=== PATIENT | female | born 1945 | race Caucasian/White ===

== ENCOUNTER 2018-06-10 11:52 | Inpatient (IN) ==
[2018-06-10 12:43] LABS: Basophils % 0.2 %; Eosinophils % 0.1 %; Hematocrit 41.3 % (35.3-44.9); Hemoglobin 14.7 g/dL (11.5-15.4); Immature Granulocytes % 0.9 % (0-4); Lymphocytes % 5.5 %; Mean Corpuscular HGB Conc 35.6 g/dL (31.6-35.5); Mean Corpuscular Volume 92.8 fL (83.0-100.0); Mean Platelet Volume 10.3 fL (9.4-12.4); Monocytes # 0.8 K/mcL (0.0-1.3); Monocytes % 4.5 %; Neutrophils # 16.2 K/mcL (1.6-8.9); Platelet Count 174 K/mcL (140-400); Red Blood Count 4.45 M/mcL (3.82-4.97); Red Cell Distribution Width 12.5 % (11.5-14.5); Segmented Neutrophils % 88.8 %
[2018-06-10 12:57] LABS: BUN/Creatinine Ratio 26 (6-26); Blood Urea Nitrogen 29 mg/dL (8-23); Calcium 8.8 mg/dL (8.6-10.3); Carbon Dioxide 27 mEq/L (23-29); Chloride 89 mEq/L (98-107); Glucose 142 mg/dL (70-105); Osmolality,Calculated 272 (280-300); Potassium 3.8 mEq/L (3.5-5.1); Sodium 127 mEq/L (136-145); Troponin I < 0.03 ng/mL (< 0.04); eGFR For Non-African Americans 48 (> 60)
[2018-06-10 13:34] LABS: Albumin 3.8 g/dL (3.5-5.7); Albumin/Globulin Ratio 1.2 (1.1-2.2); Bilirubin,Indirect 1.9 mg/dL (0.0-1.2); Bilirubin,Total 2.9 mg/dL (0.3-1.0); Globulin 3.3 g/dL (2.4-3.5); Magnesium 1.4 mg/dL (1.6-2.6); Total Protein 7.1 g/dL (6.4-8.9)
[2018-06-10] MEDS ORDERED: Isovue-370 500 ML INFUS..BTL IV ONE (13:56)
[2018-06-10] MEDS ORDERED: Piperacillin/Tazobactam 3.375 GM in 0.9 % Sodium Chloride Mini Bag 100 ML IVPB ONE (13:58)
[2018-06-10] MEDS ORDERED: Ondansetron 4 MG/2 ML VIAL IVP ONE (13:59)
[2018-06-10] MEDS ORDERED: *HR* FentaNYL (PF) 100 MCG/2 ML VIAL IVP ONE (13:59)
--- NOTE | 2018-06-10 16:55 | Emergency Department Note ---
Disposition Clinical Impression: Leukocytosis Cellulitis Qualifiers: Site of cellulitis: buttock Qualified Code(s): L03.317 - Cellulitis of buttock Disposition: Admitted As Inpatient Condition: Good Referrals: Shravan Hartmann MD [Primary Care Provider] - Forms: ED Satisfaction Letter General Adult HPI - General Chief complaint: ED Shortness of Breath/Dyspnea Stated complaint: HERSON, abscess Time Seen by Provider: 06/10/18 12:28 Source: patient Mode of arrival: ambulatory Limitations: no limitations Nursing Notes Reviewed: Yes Vital Signs Reviewed: Yes - History of Present Illness HPI Narrative: Previously diet controlled diabetes and CHF presenting today for concern for infection infection started on Sunday and was progressively worse to Sunday when it spontaneously started to drain. expresses much fluid as possible out. The patient had increased erythema going from approximately 3 x 5 cm to approximately 10 cm x 7 cm. Patient told by PCP to come to the emergency department for evaluation with her associated symptoms of fevers chills and generalized on feeling well. Patient will undergo further evaluation with lab work as well as CT to delineate the depth of involvement of infection as well as possible abscess. Pain Scale: 7 - Related Data Allergies Allergy/AdvReac Type Severity Reaction Status Date / Time iodine Allergy Unknown unknown Uncoded 08/07/15 05:00 Review of Systems: CONSTITUTIONAL: Fevers chills weakness and fatigue HEENT: Eyes: No visual changes. Ears, Nose, Throat: No hearing loss, difficulty talking or unable to swallow. SKIN: Erythema to the right gluteus CARDIOVASCULAR: No chest pain, chest pressure or chest discomfort. No palpitat ions or edema. RESPIRATORY: Shortness of breath that started earlier in the day otherwise nonspecific without cough or sputum production. GASTROINTESTINAL: Nausea and decreased appetite. GENITOURINARY: No burning on urination or hematuria. NEUROLOGICAL: No headache, dizziness, syncope, paralysis, ataxia, numbness or tingling in the extremities. No change in bowel or bladder control. MUSCULOSKELETAL: Patient with pain to the gluteal region. Physical Exam General: mild distress secondary to discomfort. Head: Normocephalic Atraumatic Eyes: PERRL, EOMI ENT: Airway patent, no stridor Neck: supple, no meningismus Chest: Lungs clear to auscultation bilateral Cardiac: Regular rhythm Abdomen: soft, nontender, nondistended; no guarding, rebound, or tenderness to percussion Musculoskeletal: Calves symmetric, nontender Skin: 10 x7 cm erythema to the pressure dependent gluteus with extenstion toward the rectum without being able to determine rectal involvement. Induration without fluctuation appreciated. Neuro: Alert and Oriented to person, place, and time; No focal deficit Course - Reevaluation(s) Reevaluation #1: Patient refusing pain medication. Imaging and blood work are pending. We have ordered Vanc and Zosyn for broad-spectrum antibiotic coverage. Patient with heart rate in the high 80s and low 90s. History of significant CHF per patient. Patient will receive 125 of fluids with hard blood pressure continued to be monitored. Patient will need admission for cellulitis given the extent as well as her diabetes. Discussed with radiology her iodine allergy which is too a horse cleaning solution as well as an episode of itching she had after eating oysters. Patient safe for IV contrast. Ultrasound gallbladder have been ordered for elevated bilirubin however after further history from patient she has had her gallbladder removed in the past. Gallbladder ultrasound has been canceled. - Consultations Consultation #1: Radiology called to discuss the case. Patient with draining abscess. No specific fluid gas seen within the area possibly consistent with correlation to abscess drainage site versus necrotizing cellulitis. Recommends surgical consult. Consultation #2: Discussed with surgery. Recommends admission to the hospital for IV antibiotics. They will consult. They were at bedside in the emergency department. Consultation #3: Discussed with hospitalist. Patient accepted for admission. Vital Signs Temperature 97.9 F 06/10/18 12:00 Pulse Rate 104 06/10/18 12:00 Respiratory Rate 22 06/10/18 12:00 Blood Pressure 137/82 06/10/18 12:00 O2 Sat by Pulse Oximetry 94 06/10/18 12:00 Temperature 97.9 F 06/10/18 12:00 Pulse Rate 104 06/10/18 12:00 Respiratory Rate 22 06/10/18 12:00 Blood Pressure 137/82 06/10/18 12:00 O2 Sat by Pulse Oximetry 94 06/10/18 12:00 Oxygen Delivery Oxygen Delivery Room Air Medical Decision Making - Lab Data Result diagrams: 06/10/18 12:24 06/10/18 12:24 Lab Results 06/10/18 06/10/18 06/10/18 Range/Units 12:24 12:24 12:24 WBC 18.3 H (4.3-11.1) K/mcL RBC 4.45 (3.82-4.97) M/mcL Hgb 14.7 (11.5-15.4) g/dL Hct 41.3 (35.3-44.9) % MCV 92.8 (83.0-100.0) fL MCH 33.0 (28.0-33.3) pg MCHC 35.6 H (31.6-35.5) g/dL RDW 12.5 (11.5-14.5) % Plt Count 174 (140-400) K/mcL MPV 10.3 (9.4-12.4) fL Immature Gran % 0.9 (0-4) % Seg Neutrophils % 88.8 % Lymphocytes % 5.5 % Monocytes % 4.5 % Eosinophils % 0.1 % Basophils % 0.2 % Neutrophils # 16.2 H (1.6-8.9) K/mcL Lymphocytes # 1.0 (0.6-4.6) K/mcL Monocytes # 0.8 (0.0-1.3) K/mcL Eosinophils # 0.0 (0.0-0.6) K/mcL Basophils # 0.0 (0.0-0.2) K/mcL Sodium 127 L (136-145) mEq/L Potassium 3.8 (3.5-5.1) mEq/L Chloride 89 L (98-107) mEq/L Carbon Dioxide 27 (23-29) mEq/L BUN 29 H (8-23) mg/dL Creatinine 1.10 (0.60-1.20) mg/dL Est GFR ( Amer) 59 L (> 60) Est GFR (Non-Af Amer) 48 L (> 60) BUN/Creatinine Ratio 26 (6-26) Glucose 142 H (70-105) mg/dL Calculated Osmolality 272 L (280-300) Lactic Acid 1.5 (0.5-2.2) mmol/L Calcium 8.8 (8.6-10.3) mg/dL Magnesium (1.6-2.6) mg/dL Total Bilirubin (0.3-1.0) mg/dL Direct Bilirubin (0.0-0.2) mg/dL Indirect Bilirubin (0.0-1.2) mg/dL AST (13-39) Units/L ALT (7-52) Units/L Alkaline Phosphatase (34-104) Units/L Troponin I < 0.03 (< 0.04) ng/mL B-Natriuretic Peptide (Less than 100) pg/mL Serum Total Protein (6.4-8.9) g/dL Albumin (3.5-5.7) g/dL Globulin (2.4-3.5) g/dL Albumin/Globulin Ratio (1.1-2.2) 06/10/18 06/10/18 Range/Units 12:24 12:52 WBC (4.3-11.1) K/mcL RBC (3.82-4.97) M/mcL Hgb (11.5-15.4) g/dL Hct (35.3-44.9) % MCV (83.0-100.0) fL MCH (28.0-33.3) pg MCHC (31.6-35.5) g/dL RDW (11.5-14.5) % Plt Count (140-400) K/mcL MPV (9.4-12.4) fL Immature Gran % (0-4) % Seg Neutrophils % % Lymphocytes % % Monocytes % % Eosinophils % % Basophils % % Neutrophils # (1.6-8.9) K/mcL Lymphocytes # (0.6-4.6) K/mcL Monocytes # (0.0-1.3) K/mcL Eosinophils # (0.0-0.6) K/mcL Basophils # (0.0-0.2) K/mcL Sodium (136-145) mEq/L Potassium (3.5-5.1) mEq/L Chloride (98-107) mEq/L Carbon Dioxide (23-29) mEq/L BUN (8-23) mg/dL Creatinine (0.60-1.20) mg/dL Est GFR ( Amer) (> 60) Est GFR (Non-Af Amer) (> 60) BUN/Creatinine Ratio (6-26) Glucose (70-105) mg/dL Calculated Osmolality (280-300) Lactic Acid (0.5-2.2) mmol/L Calcium (8.6-10.3) mg/dL Magnesium 1.4 L (1.6-2.6) mg/dL Total Bilirubin 2.9 H (0.3-1.0) mg/dL Direct Bilirubin 1.0 H (0.0-0.2) mg/dL Indirect Bilirubin 1.9 H (0.0-1.2) mg/dL AST 29 (13-39) Units/L ALT 27 (7-52) Units/L Alkaline Phosphatase 85 (34-104) Units/L Troponin I (< 0.04) ng/mL B-Natriuretic Peptide 325 H (Less than 100) pg/mL Serum Total Protein 7.1 (6.4-8.9) g/dL Albumin 3.8 (3.5-5.7) g/dL Globulin 3.3 (2.4-3.5) g/dL Albumin/Globulin Ratio 1.2 (1.1-2.2)
[2018-06-10] MEDS: 0.9 % Sodium Chloride 1,000 ML IVC SCH ×2 (17:01→22:00)
[2018-06-10] MEDS ORDERED: Lidocaine -MPF 2% 5 ML VIAL INFILT ONE (17:12)
--- NOTE | 2018-06-10 17:19 | Internal Med History&Physical ---
Date of Encounter: 06/10/18 Time of Encounter: 17:16 Internal Medicine - H&P: HPI Chief complaint: gluteal infection Admitted From: Home Plans for Post Hospital Care: Home History of present illness: Ms. Carpenter is a 73 year old female with history of Fib on Xarelto ( not compliant), HFpEF and morbid obesity presented to the ED with complaint of right gluteal pain. as per patietn her pain started about 3 days ago and is located in the right gluteal region and is non-radiating, sharp in nature aggravated by movement. she has a sensation of laying on a lump. she told her about what she felt and he attempted to drain the swelling and reports that he was able to aspirate about 1 ml of brownish fluid. her symptoms did not improve and she developed chills and felt warm over the weekend so they decided to come to the Ed for further evaluation. she reports that she has not taken any of her medications for the past 3 days as she did not feel "good". I discussed with her the risks associated with not abraham complaint with her OAC and she understands. she has difficulty with ambulating secondary to her weight. she denies chest pain but does report dyspnea at rest. She denies fever, chills, palpitations, shortness of breath, nausea, vomiting, diarrhea, leg swelling, calf tenderness, heat or cold intolerance, LOC, syncope, headache, vision changes, loss of function in her extremities, PND or orthopnea. In ED, patient was afebrile with labs of WBC 18.3, Hgb 14.7, INR 1.6, Na 127, lactic acid 1.5. CT abdomen pelvis showed subcutaneous soft tissue stranding and gas along right aspect of gluteal cleft, worrisome for necrotizing cellulitis. Surgery saw patient at bedside and did a bedside I&D and as the patient that this overall to will need to be held tonight for further debridements in the OR in the a.m. Internal Medicine - H&P: Meds Atorvastatin Calcium [Lipitor] 20 mg PO QPM 06/10/18 [History] Furosemide [Lasix] 20 mg PO Q48H 06/10/18 [History] Lisinopril [Zestril] 40 mg PO DAILY 06/10/18 [History] Metoprolol Succinate [Toprol Xl] 50 mg PO DAILY 06/10/18 [History] Multivit-Min/FA/Lycopen/Lutein [A Thru Z Select Multivit Tab] 1 tab PO DAILY 06/10/18 [History] Rivaroxaban [Xarelto] 20 mg PO DAILY 06/10/18 [History] Ubidecarenone [Co Q-10] 100 mg PO DAILY 06/10/18 [History] hydroCHLOROthiazide [Hydrochlorothiazide] 25 mg PO DAILY 06/10/18 [History] Allergy/AdvReac Type Severity Reaction Status Date / Time iodine Allergy Unknown unknown Uncoded 08/07/15 05:00 All Systems PM: A 10-system review of systems was performed and is negative for pertinent findings except as documented above in the HPI. - Constitutional Vitals: Temp Pulse Resp BP Pulse Ox 97.9 F 104 22 137/82 94 06/10/18 12:00 06/10/18 12:00 06/10/18 12:00 06/10/18 12:00 06/10/18 12:00 Exam: General: Patient is alert, oriented, no acute distress, morbidly obese Head: atraumatic, normocephalic, Eye: normal appearance, PERRL, no scleral icterus, no conjunctival injection ENT: mucous membranes moist, normal external ear exam Neck: normal inspection, trachea midline, full ROM, no carotid bruits Chest: normal inspection, symmetric chest rise Respiratory: tachypnic distant breathsounds secondary to body habitus, Bilateral breath sounds are clear without wheezing, crackles, or rhonchi. Cardiovascular: distent heart sounds secondary to body habitus, irregularly irregular s1 and s2 No clicks, rubs, gallops, or murmors. Abdomen: Bowel sounds present normoactive x-4 quadrants. Abdomen is soft, nond istended. no Epigastric tenderness. No guarding or rebound. No organomegaly noted, obese musculoskeletal: Spontaneously moving all extremities. no edema, no calf tenderness Skin: warm, dry, intact. indurated abscess on pressure region of right gluteal fold with surrounding erythema Neuro: Alert and oriented x4. Sensation light touch intact. Cranial nerves 2- 12 is intact. no focal deficit Psych: Patient's affect is normal Internal Med - H&P Results - Labs CBC & Chem 7: 06/10/18 12:24 06/10/18 12:24 Labs: Short CBC 06/10/18 Range/Units 12:24 WBC 18.3 H (4.3-11.1) K/mcL Hgb 14.7 (11.5-15.4) g/dL Hct 41.3 (35.3-44.9) % Plt Count 174 (140-400) K/mcL Neutrophils # 16.2 H (1.6-8.9) K/mcL BMP 06/10/18 12:24 Sodium 127 L Potassium 3.8 Chloride 89 L Carbon Dioxide 27 BUN 29 H Creatinine 1.10 Glucose 142 H Calcium 8.8 Cardiac Enzymes 06/10/18 Range/Units 12:24 Troponin I < 0.03 (< 0.04) ng/mL Liver Function 06/10/18 Range/Units 12:52 Total Bilirubin 2.9 H (0.3-1.0) mg/dL Direct Bilirubin 1.0 H (0.0-0.2) mg/dL AST 29 (13-39) Units/L ALT 27 (7-52) Units/L Alkaline Phosphatase 85 (34-104) Units/L Albumin 3.8 (3.5-5.7) g/dL - EKG Data -: EKG Interpreted by Myself (admission Ekg pending ) - Impressions ITS Impressions Chest X-Ray 06/10/18 12:01 IMPRESSION: No acute process. D/ / Bernardino Cohen MD / Bernardino Cohen MD Interpreting Provider: Bernardino Cohen MD Abdomen/Pelvis CT 06/10/18 13:56 IMPRESSION: Subcutaneous soft tissue stranding and gas along the right aspect of the gluteal cleft. Findings may be iatrogenic if patient has had recent incision and drainage; otherwise, findings are worrisome for necrotizing cellulitis. No drainable focal abscess. Mildly nodular hepatic contour, which appears new since 04/01/2014. Correlate with clinical evidence of cirrhosis. D/ / 06/10/2018 16:48:49 Valente Acevedo MD / [facility] Interpreting Provider: Valente Acevedo MD - Assessment and plan (1) Cellulitis Current Visit: Yes Status: Acute Assessment and plan: CT abdomen and pelvis worrisome for necrotizing cellulitis Surgery was consulted in the emergency department- Dr. Reed performed bedside I&D will most likely need to have debridement in the OR Was started on vancomycin and Zosyn in the emergency department we will continue and add clindamycin IV fluids watch for overload ESR, CRP, CPK Lactic acid within normal limit ID consult in AM High risk for surgery ( has not taken her medications for days, is SOB at rest has severe pulm HTN ) Admission EKG stat CT A/p IMPRESSION: Subcutaneous soft tissue stranding and gas along the right aspect of the gluteal cleft. Findings may be iatrogenic if patient has had recent incision and drainage; otherwise, findings are worrisome for necrotizing cellulitis. No drainable focal abscess. Mildly nodular hepatic contour, which appears new since 04/01/2014. Correlate with clinical evidence of cirrhosis. Qualifiers: Site of cellulitis: buttock Qualified Code(s): L03.317 - Cellulitis of buttock (2) Sepsis Current Visit: Yes Status: Acute Assessment and plan: secondary gluteal cellulitis WBC count: 18.3 / HR 104 BCx in process Surgery on board Qualifiers: Sepsis type: sepsis due to unspecified organism Qualified Code(s): A41.9 - Sepsis, unspecified organism (3) Moderate to severe pulmonary hypertension Current Visit: Yes Status: Acute Assessment and plan: see on TTE in 2014 Moderate-severe pulmonary hypertension. Estimated RVSP is 55 mmHg. DUO nebs Q4H is not compliant to xarelto is at high risk for DVT and PE secondary to morbid obesity and poor ambulation also most likely has GABRIEL - never had sleep study as OP Echocardiogram in AM continue Oxygen via NC keep sats >92% Bipap at nights currently on heparin drip as her chads vasc is 6 (4) Chronic a-fib Current Visit: Yes Status: Acute Assessment and plan: continue metoprolol Xarelto on hold for surgery in AM Chads vasc of 6 - will start her on heparin Drip. (5) (HFpEF) heart failure with preserved ejection fraction Current Visit: Yes Status: Acute Assessment and plan: will continue home medications if not CI BIPAP at nights keep saturations above 92% Echocardiogram TTE in 03/2015 LVEF 65-70%. Normal left ventricular structure and function. Indeterminate diastolic function. Normal right ventricular structure and function. Moderate posterior mitral annular calcification. Posterior leaflet with reduced mobility. No mitral stenosis. Trace mitral regurgitation. Mild tricuspid regurgitation. Moderate-severe pulmonary hypertension. Estimated RVSP is 55 mmHg (6) Morbid obesity Current Visit: Yes Status: Acute Assessment and plan: BMI 42.4 Nutrition (7) Hypomagnesemia Current Visit: Yes Status: Acute Assessment and plan: magnesium 1.4 replaced follow in AM (8) Hyponatremia Current Visit: Yes Status: Acute Assessment and plan: most likely secondary to poor oral intake continue IVF - watch for overload (9) DVT prophylaxis Current Visit: Yes Status: Acute Assessment and plan: heparin Drip Xarelto on hold - Time Spent With Patient Total time spent is greater than 50% in coordination of care (as documented) at patient's floor/unit and/or counseling patient:
[2018-06-10] MEDS ORDERED: traMADol 50 MG TABLET PO PRN (17:31)
[2018-06-10] MEDS ORDERED: Naloxone 0.4 MG/ML INJ IVP PRN (17:31)
[2018-06-10] MEDS ORDERED: MORPHINE SUL Oral CONC 10 MG/0.5 ML ORAL.SYG SL PRN (17:46)
[2018-06-10 17:53] LABS: INR 1.6; Prothrombin Time 17.9 Seconds (9.4-12.1)
--- NOTE | 2018-06-10 18:04 | General Surgery Procedure Note ---
Date of procedure: 06/10/18 Pre-op diagnosis: Right buttock abscess Procedure: Incision and drainage of right buttock abscess Findings: After properly identifying the patient patient was presented in the supine position and the right buttock was prepped and draped in normal sterile fashion particularly near the crease. 1% lidocaine with epinephrine was used to infiltrate the epidermal and dermal layer along the most medial aspect of the buttock crease. There was an area of what appeared to be ecchymosis 19-gauge needle was used to identify the area with the most amount of "air" and some tinnitus tissue. This did correspond to the area with mild ecchymosis (approximately several millimeters in diameter) and an 11 blade scalpel was used to make a vertical incision for length of approximately 3 cm. Dissection with a hemostat was carried down to the subcutaneous tissue and there was a 1 cm area of necrotic tissue superficially up to the skin. This necrotic tissue did not appear to extend deep within the subcutaneous tissue. Packing was initially placed to maintain hemostasis of revisualization again demonstrated necrotic tissue which appeared to be more superficial in nature. The wound was packed with quarter percent gauze with iodophor and covered with 4 x 4 gauze. The wound will be followed closely by our staff over the next 24 period. Agree with current IV fluids and IV antibiotics. Patient will be made nothing by mouth after midnight in case wound exploration in the operating room staff necessary. Anesthesia: JULIO C Surgeon: Zack Reed Estimated blood loss (cc): 11 Pathology: other (Cultures of the wound) Condition: stable Disposition: floor
--- NOTE | 2018-06-10 18:17 | General Surgery Consult Note ---
<Erick Haro S - Last Filed: 06/10/18 18:20> Date of Encounter: 06/10/18 Time of Encounter: 05:45 Assessment and Plan (1) Abscess of right buttock Current Visit: Yes Status: Acute CT (06/10) concerning for necrotizing cellulitis WBC elevated at 18.3 Dr. Reed performed incision and drainage in ED today, found necrotic tissue Will make patient NPO at midnight in case the need for exploratory surgery in next 24-48 hours Patient on clindamycin, zosyn, and vancomycin Percocet for moderate pain and SL morphine for severe pain Zofran for nausea Protonix for GI prophylaxis IVF 125 ml/hr Ordered aerobic and anaerobic wound cultures History of Present Illness History of present illness: 73 year old female with PMHx of HTN, CHF, afib on xarelto, DM presents to [facility] from her doctor's office with complaints of right gluteal pain/swelling. Surgery consulted for concern of necrotizing cellulitis. In ED, patient was afebrile with labs of WBC 18.3, Hgb 14.7, INR 1.6, Na 127, lactic acid 1.5. CT abdomen pelvis showed subcutaneous soft tissue stranding and gas along right aspect of gluteal cleft, worrisome for necrotizing cellulitis. Patient seen and examined this afternoon. She states her pain started on Sunday and feels like she's sitting on a lump. It is worse with movement and does not radiate anywhere. Her attempted to drain the area and was able to express approximately 1 ml of yellow/brown material. She admits to subjective fevers and chills during this time. She admits to numbness/tingling in lower extremities, but states that is chronic from her diabetes. Patient admits to some nausea and decreased appetite, but she denies vomiting. She denies CP, SOB, abdominal pain, pain with defecation/urination, changes in bowel/bladder habits. She has not taken her xarelto in 4-5 days because she has been too nauseated to tolerate it. Patient's surgical history includes chest abscess drained "many years ago," right inguinal hernia repair, weight loss stomach s tapling, and cholecystectomy. Patient denies history of smoking, alcohol, and drug use. Medications and Allergies Atorvastatin Calcium [Lipitor] 20 mg PO QPM 06/10/18 [History] Furosemide [Lasix] 20 mg PO Q48H 06/10/18 [History] Lisinopril [Zestril] 40 mg PO DAILY 06/10/18 [History] Metoprolol Succinate [Toprol Xl] 50 mg PO DAILY 06/10/18 [History] Multivit-Min/FA/Lycopen/Lutein [A Thru Z Select Multivit Tab] 1 tab PO DAILY 06/10/18 [History] Rivaroxaban [Xarelto] 20 mg PO DAILY 06/10/18 [History] Ubidecarenone [Co Q-10] 100 mg PO DAILY 06/10/18 [History] hydroCHLOROthiazide [Hydrochlorothiazide] 25 mg PO DAILY 06/10/18 [History] Allergy/AdvReac Type Severity Reaction Status Date / Time iodine Allergy Unknown unknown Uncoded 08/07/15 05:00 Review of Systems All systems PM: The remainder of the systems were reviewed and are negative General Surgery Exam Initial Vital Signs Temp Pulse Resp BP Pulse Ox 97.9 F 104 22 137/82 94 06/10/18 12:00 06/10/18 12:00 06/10/18 12:00 06/10/18 12:00 06/10/18 12:00 - General physical appearance well developed, no distress - Respiratory normal expansion, normal respiratory effort - Cardiovascular Cardiovascular exam: Present: tachycardia, irregular rhythm - Abdomen Abdomen general surgery: Present: bowel sounds present, soft, non tender - Rectum Rectum: Present: other (indurated abscess on pressure region of right gluteal fold with surrounding erythema) - Integumentary Integumentary general surgery: Present: warm and dry - Psychiatric Psychiatric general surgery: Present: A&Ox3, appropriate Exam Initial Vital Signs Temp Pulse Resp BP Pulse Ox 97.9 F 104 22 137/82 94 06/10/18 12:00 06/10/18 12:00 06/10/18 12:00 06/10/18 12:00 06/10/18 12:00 Results - Labs 06/10/18 12:24 06/10/18 12:24 Abnormal lab results WBC 18.3 K/mcL (4.3-11.1) H 06/10/18 12:24 MCHC 35.6 g/dL (31.6-35.5) H 06/10/18 12:24 Neutrophils # 16.2 K/mcL (1.6-8.9) H 06/10/18 12:24 ESR 41 mm/hr (0-15) H 06/10/18 12:24 PT 17.9 Seconds (9.4-12.1) H 06/10/18 12:24 Sodium 127 mEq/L (136-145) L 06/10/18 12:24 Chloride 89 mEq/L (98-107) L 06/10/18 12:24 BUN 29 mg/dL (8-23) H 06/10/18 12:24 Est GFR ( Amer) 59 (> 60) L 06/10/18 12:24 Est GFR (Non-Af Amer) 48 (> 60) L 06/10/18 12:24 Glucose 142 mg/dL (70-105) H 06/10/18 12:24 Calculated Osmolality 272 (280-300) L 06/10/18 12:24 Magnesium 1.4 mg/dL (1.6-2.6) L 06/10/18 12:52 Total Bilirubin 2.9 mg/dL (0.3-1.0) H 06/10/18 12:52 Direct Bilirubin 1.0 mg/dL (0.0-0.2) H 06/10/18 12:52 Indirect Bilirubin 1.9 mg/dL (0.0-1.2) H 06/10/18 12:52 C-Reactive Protein 153 mg/L (Less than 10) H 06/10/18 12:52 B-Natriuretic Peptide 325 pg/mL (Less than 100) H 06/10/18 12:24 Diabetes panel 06/10/18 06/10/18 Range/Units 12:24 12:52 Sodium 127 L (136-145) mEq/L Potassium 3.8 (3.5-5.1) mEq/L Chloride 89 L (98-107) mEq/L Carbon Dioxide 27 (23-29) mEq/L BUN 29 H (8-23) mg/dL Creatinine 1.10 (0.60-1.20) mg/dL Glucose 142 H (70-105) mg/dL Calcium 8.8 (8.6-10.3) mg/dL AST 29 (13-39) Units/L ALT 27 (7-52) Units/L Alkaline Phosphatase 85 (34-104) Units/L Albumin 3.8 (3.5-5.7) g/dL Calcium panel 06/10/18 06/10/18 Range/Units 12:24 12:52 Calcium 8.8 (8.6-10.3) mg/dL Albumin 3.8 (3.5-5.7) g/dL Pituitary panel 06/10/18 Range/Units 12:24 Sodium 127 L (136-145) mEq/L Potassium 3.8 (3.5-5.1) mEq/L Chloride 89 L (98-107) mEq/L Carbon Dioxide 27 (23-29) mEq/L BUN 29 H (8-23) mg/dL Creatinine 1.10 (0.60-1.20) mg/dL Glucose 142 H (70-105) mg/dL Calcium 8.8 (8.6-10.3) mg/dL Adrenal panel 06/10/18 06/10/18 Range/Units 12:24 12:52 Sodium 127 L (136-145) mEq/L Potassium 3.8 (3.5-5.1) mEq/L Chloride 89 L (98-107) mEq/L Carbon Dioxide 27 (23-29) mEq/L BUN 29 H (8-23) mg/dL Creatinine 1.10 (0.60-1.20) mg/dL Glucose 142 H (70-105) mg/dL Calcium 8.8 (8.6-10.3) mg/dL Total Bilirubin 2.9 H (0.3-1.0) mg/dL AST 29 (13-39) Units/L ALT 27 (7-52) Units/L Alkaline Phosphatase 85 (34-104) Units/L Albumin 3.8 (3.5-5.7) g/dL All other labs normal. Consult Discharge Plan - Plan Referrals: Shravan Hartmann MD [Primary Care Provider] - <Zack Reed - Last Filed: 06/11/18 14:22> Date of Encounter: 06/10/18 Review of Systems All systems PM: The remainder of the systems were reviewed and are negative General Surgery Exam Initial Vital Signs Temp Pulse Resp BP Pulse Ox 97.9 F 104 22 137/82 94 06/10/18 12:00 06/10/18 12:00 06/10/18 12:00 06/10/18 12:00 06/10/18 12:00 Exam Initial Vital Signs Temp Pulse Resp BP Pulse Ox 97.9 F 104 22 137/82 94 06/10/18 12:00 06/10/18 12:00 06/10/18 12:00 06/10/18 12:00 06/10/18 12:00 Results - Labs 06/11/18 08:55 06/11/18 04:31 Abnormal lab results WBC 20.6 K/mcL (4.3-11.1) H 06/11/18 08:55 RBC 3.47 M/mcL (3.82-4.97) L 06/11/18 08:55 Hgb 11.4 g/dL (11.5-15.4) L D 06/11/18 08:55 Hct 32.8 % (35.3-44.9) L 06/11/18 08:55 Neutrophils # 17.8 K/mcL (1.6-8.9) H 06/11/18 08:55 Monocytes # 1.4 K/mcL (0.0-1.3) H 06/11/18 08:55 ESR 41 mm/hr (0-15) H 06/10/18 12:24 PT 20.9 Seconds (9.4-12.1) H 06/11/18 04:31 Heparin Anti-Xa, Unfract 0.74 IU/mL (0.30-0.70) H 06/11/18 04:31 Sodium 128 mEq/L (136-145) L 06/11/18 04:31 Potassium 3.4 mEq/L (3.5-5.1) L 06/11/18 04:31 Chloride 95 mEq/L (98-107) L 06/11/18 04:31 Carbon Dioxide 20 mEq/L (23-29) L 06/11/18 04:31 Glucose 151 mg/dL (70-105) H 06/11/18 04:31 POC Glucose 123 mg/dL (70-99) H 06/11/18 12:48 Calculated Osmolality 273 (280-300) L 06/11/18 04:31 Calcium 7.7 mg/dL (8.6-10.3) L 06/11/18 04:31 Magnesium 1.4 mg/dL (1.6-2.6) L 06/10/18 12:52 Total Bilirubin 1.9 mg/dL (0.3-1.0) H 06/11/18 04:31 Direct Bilirubin 1.0 mg/dL (0.0-0.2) H 06/10/18 12:52 Indirect Bilirubin 1.9 mg/dL (0.0-1.2) H 06/10/18 12:52 C-Reactive Protein 153 mg/L (Less than 10) H 06/10/18 12:52 B-Natriuretic Peptide 325 pg/mL (Less than 100) H 06/10/18 12:24 Serum Total Protein 5.8 g/dL (6.4-8.9) L 06/11/18 04:31 Albumin 3.0 g/dL (3.5-5.7) L 06/11/18 04:31 Diabetes panel 06/10/18 06/11/18 Range/Units 12:52 04:31 Sodium 128 L (136-145) mEq/L Potassium 3.4 L (3.5-5.1) mEq/L Chloride 95 L (98-107) mEq/L Carbon Dioxide 20 L (23-29) mEq/L BUN 23 (8-23) mg/dL Creatinine 0.89 (0.60-1.20) mg/dL Glucose 151 H (70-105) mg/dL Calcium 7.7 L (8.6-10.3) mg/dL AST 29 26 (13-39) Units/L ALT 27 24 (7-52) Units/L Alkaline Phosphatase 85 74 (34-104) Units/L Albumin 3.8 3.0 L (3.5-5.7) g/dL Calcium panel 06/10/18 06/11/18 Range/Units 12:52 04:31 Calcium 7.7 L (8.6-10.3) mg/dL Albumin 3.8 3.0 L (3.5-5.7) g/dL Pituitary panel 06/11/18 Range/Units 04:31 Sodium 128 L (136-145) mEq/L Potassium 3.4 L (3.5-5.1) mEq/L Chloride 95 L (98-107) mEq/L Carbon Dioxide 20 L (23-29) mEq/L BUN 23 (8-23) mg/dL Creatinine 0.89 (0.60-1.20) mg/dL Glucose 151 H (70-105) mg/dL Calcium 7.7 L (8.6-10.3) mg/dL Adrenal panel 06/10/18 06/11/18 Range/Units 12:52 04:31 Sodium 128 L (136-145) mEq/L Potassium 3.4 L (3.5-5.1) mEq/L Chloride 95 L (98-107) mEq/L Carbon Dioxide 20 L (23-29) mEq/L BUN 23 (8-23) mg/dL Creatinine 0.89 (0.60-1.20) mg/dL Glucose 151 H (70-105) mg/dL Calcium 7.7 L (8.6-10.3) mg/dL Total Bilirubin 2.9 H 1.9 H (0.3-1.0) mg/dL AST 29 26 (13-39) Units/L ALT 27 24 (7-52) Units/L Alkaline Phosphatase 85 74 (34-104) Units/L Albumin 3.8 3.0 L (3.5-5.7) g/dL All other labs normal. - Attending Attestation I examined this patient and my medical decision-making was reviewed with the Resident Physician. I agree with the documented findings, disposition and treatment plan as described except to the extent set forth below. I reviewed the assessment and evaluation with the resident and agree with the above plan. Patient has had pain in the buttock area started several days ago. The pain persisted she started to have swelling with some drainage over the weekend. The attempted to perform drainage by applying pressure yesterday with minimal drainage. The patient does admit to having foul-smelling drainage several days prior. She does feel like she has chills and because of her worsening symptoms she presented to the emergency room. Evaluation there is significant erythema along the medial aspect of the right buttocks with an area of possible bruise with likely drainage was noted. Elevated white count. I noted the CT scan results which shows air in the soft tissues which is concerning for abscess with possible necrotic fasciitis. To evaluate this better we will perform a bedside incision and drainage/debridement procedures. In the emergency room so we can better assess the level of the degree of drainage and or appearance of the subcutaneous tissue. Agree with IV antibiotic and IV fluid therapy. Will follow closely with you.
[2018-06-10] MEDS ORDERED: *HR* Heparin 5,000 UNIT/ML VIAL IVP ONE (19:18)
[2018-06-10] MEDS ORDERED: *HR* Heparin 5,000 UNIT/ML VIAL IVP PRN ×2 (19:18)
[2018-06-10] MEDS ORDERED: Heparin 25,000 UNIT/500 ML D5W 25,000 UNIT/500 ML BAG IVC SCH (19:30)
[2018-06-10] MEDS ORDERED: Dextrose Gel 15 GM/37.5 ML TUBE PO PRN ×2 (19:43)
[2018-06-10] MEDS ORDERED: D5% in Water 1,000 ML IVC PRN (19:43)
[2018-06-10] MEDS ORDERED: *HR* Dextrose 50 % in Water (Syg) 50 ML SYRINGE IVP PRN (19:43)
[2018-06-10] MEDS ORDERED: Furosemide 20 MG TABLET PO SCH (19:45)
[2018-06-10] MEDS: Ipratropium/Albuterol Neb 3 ML IH SCH ×2 (20:45→23:38)
[2018-06-10 21:30] LABS: Hematocrit 37.5 % (35.3-44.9); Hemoglobin 13.2 g/dL (11.5-15.4); Mean Corpuscular HGB Conc 35.2 g/dL (31.6-35.5); Mean Corpuscular Hemoglobin 32.6 pg (28.0-33.3); Mean Corpuscular Volume 92.6 fL (83.0-100.0); Mean Platelet Volume 10.3 fL (9.4-12.4); Platelet Count 157 K/mcL (140-400); Red Blood Count 4.05 M/mcL (3.82-4.97); Red Cell Distribution Width 12.5 % (11.5-14.5)
[2018-06-10 21:39] LABS: INR 1.7; Prothrombin Time 19.3 Seconds (9.4-12.1)
[2018-06-10] MEDS: Pantoprazole 40 MG VIAL IVP SCH (22:00)
[2018-06-10] MEDS: Clindamycin 900 MG/50 ML 900 MG/50 ML IV.SOLN IVPB SCH (23:09)
[2018-06-10] MEDS: Piperacillin/Tazobactam 3.375 GM in 0.9 % Sodium Chloride Mini Bag 100 ML IVPB SCH (23:46)
[2018-06-11] MEDS ORDERED: *HR* Heparin 5,000 UNIT/ML VIAL SQ SCH
[2018-06-11] MEDS: Insulin LISPRO 300 UNITS/3 ML VIAL SQ SCH ×4 (01:10→16:55)
[2018-06-11] MEDS: *HR* OxyCODONE/APAP 5/325 TABLET PO PRN ×2 (03:45→16:54)
[2018-06-11] MEDS: Ondansetron 4 MG/2 ML VIAL IVP PRN ×3 (03:45→19:16)
[2018-06-11] MEDS: Ipratropium/Albuterol Neb 3 ML IH SCH ×4 (03:52→15:27)
[2018-06-11 04:43] LABS: Basophils # 0.1 K/mcL (0.0-0.2); Basophils % 0.2 %; Hematocrit 37.1 % (35.3-44.9); Immature Granulocytes % 1.1 % (0-4); Lymphocytes # 1.9 K/mcL (0.6-4.6); Lymphocytes % 8.3 %; Mean Corpuscular Hemoglobin 32.7 pg (28.0-33.3); Mean Corpuscular Volume 93.2 fL (83.0-100.0); Mean Platelet Volume 10.2 fL (9.4-12.4); Monocytes # 1.3 K/mcL (0.0-1.3); Monocytes % 5.7 %; Neutrophils # 19.8 K/mcL (1.6-8.9); Platelet Count 179 K/mcL (140-400); Red Blood Count 3.98 M/mcL (3.82-4.97); Red Cell Distribution Width 12.6 % (11.5-14.5); Segmented Neutrophils % 84.7 %
[2018-06-11 04:53] LABS: Heparin anti-factor XA UFH 0.74 IU/mL (0.30-0.70)
[2018-06-11 05:00] LABS: Alanine Aminotransferase 24 Units/L (7-52); Albumin/Globulin Ratio 1.1 (1.1-2.2); Alkaline Phosphatase 74 Units/L (34-104); Aspartate Amino Transferase 26 Units/L (13-39); BUN/Creatinine Ratio 26 (6-26); Bilirubin,Total 1.9 mg/dL (0.3-1.0); Blood Urea Nitrogen 23 mg/dL (8-23); Calcium 7.7 mg/dL (8.6-10.3); Carbon Dioxide 20 mEq/L (23-29); Chloride 95 mEq/L (98-107); Globulin 2.8 g/dL (2.4-3.5); Glucose 151 mg/dL (70-105); Osmolality,Calculated 273 (280-300); Potassium 3.4 mEq/L (3.5-5.1); Sodium 128 mEq/L (136-145); Total Protein 5.8 g/dL (6.4-8.9); eGFR For Non-African Americans > 60 (> 60)
[2018-06-11] MEDS: 0.9 % Sodium Chloride 1,000 ML IVC SCH (06:06)
[2018-06-11 06:53] LABS: INR 1.9; Prothrombin Time 20.9 Seconds (9.4-12.1)
[2018-06-11] MEDS: Piperacillin/Tazobactam 3.375 GM in 0.9 % Sodium Chloride Mini Bag 100 ML IVPB SCH ×2 (07:48→16:55)
[2018-06-11] MEDS: Multivit/Ca/Min/Fe/FA 1 TAB TABLET PO SCH (07:49)
[2018-06-11] MEDS: Pantoprazole 40 MG VIAL IVP SCH (07:49)
[2018-06-11] MEDS: Metoprolol XL (24 HR) Succ 50 MG TAB.ER.24H PO SCH (07:49)
[2018-06-11] MEDS: Clindamycin 900 MG/50 ML 900 MG/50 ML IV.SOLN IVPB SCH ×2 (08:56→19:04)
[2018-06-11] MEDS ORDERED: Lisinopril 20 MG TABLET PO SCH (09:00)
[2018-06-11] MEDS ORDERED: (Ubidecarenone [Co Q-10] 100 MG) PO SCH (09:00)
[2018-06-11] MEDS ORDERED: hydroCHLOROthiazide 25 MG TABLET PO SCH (09:00)
[2018-06-11 09:04] LABS: Basophils % 0.2 %; Hematocrit 32.8 % (35.3-44.9); Lymphocytes # 1.1 K/mcL (0.6-4.6); Lymphocytes % 5.2 %; Mean Corpuscular HGB Conc 34.8 g/dL (31.6-35.5); Mean Corpuscular Hemoglobin 32.9 pg (28.0-33.3); Mean Corpuscular Volume 94.5 fL (83.0-100.0); Mean Platelet Volume 9.9 fL (9.4-12.4); Monocytes # 1.4 K/mcL (0.0-1.3); Monocytes % 6.9 %; Neutrophils # 17.8 K/mcL (1.6-8.9); Platelet Count 154 K/mcL (140-400); Red Blood Count 3.47 M/mcL (3.82-4.97); Red Cell Distribution Width 12.9 % (11.5-14.5); Segmented Neutrophils % 86.7 %
[2018-06-11 09:05] LABS: Hemoglobin 11.4 g/dL (11.5-15.4)
--- NOTE | 2018-06-11 10:09 | Internal Med Progress Note ---
Hospitalist Progress Note - Encounter Date of Encounter: 06/11/18 Time of Encounter: 07:30 - Subjective Interval History: Patient was seen and examined at bedside. Reports that she is doing much better than yesterday, she does have some discomfort in the right gluteal area. Tolerated diet yesterday for dinner however is nothing by mouth currently. Rep orts that shortness of breath improved overnight. Pain is controlled she denies fever, chils, CP, SOb, cough, palpitations, N/v/D - Exam Vitals: Temp Pulse Resp BP Pulse Ox 97.7 F 90 15 104/68 93 06/11/18 08:10 06/11/18 08:10 06/11/18 08:10 06/11/18 08:10 06/11/18 08:10 Exam: General: Patient is alert, oriented, no acute distress, morbidly obese Head: atraumatic, normocephalic, Eye: normal appearance, PERRL, no scleral icterus, no conjunctival injection ENT: mucous membranes moist, normal external ear exam Neck: normal inspection, trachea midline, full ROM, no carotid bruits Chest: normal inspection, symmetric chest rise Respiratory: distant breathsounds secondary to body habitus, Bilateral breath sounds are clear without wheezing, crackles, or rhonchi. Cardiovascular: distent heart sounds secondary to body habitus, irregular s1 and s2 No clicks, rubs, gallops, or murmors. Abdomen: Bowel sounds present normoactive x-4 quadrants. Abdomen is soft, nondistended. no Epigastric tenderness. No guarding or rebound. No organomegaly noted, obese musculoskeletal: Spontaneously moving all extremities. no edema, no calf tenderness Skin: warm, dry, intact. S/p I&D eryhthema Neuro: Alert and oriented x4. Sensation light touch intact. Cranial nerves 2- 12 is intact. no focal deficit Psych: Patient's affect is normal - Assessment and Plan (1) Cellulitis Current Visit: Yes Status: Acute Assessment and Plan: CT abdomen and pelvis worrisome for necrotizing cellulitis Surgery was consulted in the emergency department- Dr. Reed performed bedside I&D will most likely need to have debridement in the OR on 06/11 On vancomycin, Zosyn, clindamycin IV fluids watch for overload ESR 41 CRP 153 Lactic acid 1.5 ID consulted will follow recommendations High risk for surgery ( has not taken her medications for days, is SOB at rest has severe pulm HTN ) Admission EKG- pending nursing staff is aware cardiology consulted for Preop- clearance CT A/p IMPRESSION: Subcutaneous soft tissue stranding and gas along the right aspect of the gluteal cleft. Findings may be iatrogenic if patient has had recent incision and drainage; otherwise, findings are worrisome for necrotizing cellulitis. No drainable focal abscess. Mildly nodular hepatic contour, which appears new since 04/01/2014. Correlate with clinical evidence of cirrhosis. (2) Sepsis Current Visit: Yes Status: Acute Assessment and Plan: secondary gluteal cellulitis / ? necrotizing cellulitis WBC count: 18.3 / HR 104 BCx NGTD Wound CX sent by surgery Surgery on board (3) Moderate to severe pulmonary hypertension Current Visit: Yes Status: Acute Assessment and Plan: see on TTE in 2014 Moderate-severe pulmonary hypertension. Estimated RVSP is 55 mmHg. DUO nebs Q4H is not compliant to xarelto is at high risk for DVT and PE secondary to morbid obesity and poor ambulation wells criteria 6 also most likely has GABRIEL - never had sleep study as OP Echocardiogram in AM continue Oxygen via NC keep sats >92% Bipap at nights currently on heparin drip as her chads vasc is 6 (4) Chronic a-fib Current Visit: Yes Status: Acute Assessment and Plan: continue metoprolol Xarelto on hold for surgery in AM Chads vasc of 6 - will start her on heparin Drip. (5) (HFpEF) heart failure with preserved ejection fraction Current Visit: Yes Status: Acute Assessment and Plan: Continue BB, statins, ACEI currently not in exacerbation BIPAP at nights keep saturations above 92% Echocardiogram TTE in 03/2015 LVEF 65-70%. Normal left ventricular structure and function. Indeterminate diastolic function. Normal right ventricular structure and function. Moderate posterior mitral annular calcification. Posterior leaflet with reduced mobility. No mitral stenosis. Trace mitral regurgitation. Mild tricuspid regurgitation. Moderate-severe pulmonary hypertension. Estimated RVSP is 55 mmHg (6) Morbid obesity Current Visit: Yes Status: Acute Assessment and Plan: BMI 42.4 Nutrition (7) Hypomagnesemia Current Visit: Yes Status: Acute Assessment and Plan: magnesium 1.4 replaced (8) Hyponatremia Current Visit: Yes Status: Acute Assessment and Plan: most likely secondary to poor oral intake continue IVF - watch for overload held lasix and HCTZ for now as she is hyponatremic fluid restriction to 1 L (9) Hypokalemia Current Visit: Yes Status: Acute Assessment and Plan: repalced will follow in AM (10) DVT prophylaxis Current Visit: Yes Status: Acute Assessment and Plan: heparin Drip Xarelto on hold - Time Spent with Patient Total time spent is greater than 50% in coordination of care (as documented) at patient's floor/unit and/or counseling patient: Internal Medicine: Result - Labs CBC & Chem 7: 06/11/18 08:55 06/11/18 04:31 Labs: Short CBC 06/10/18 06/10/18 06/11/18 Range/Units 12:24 21:12 04:31 WBC 18.3 H 19.8 H 23.3 H (4.3-11.1) K/mcL Hgb 14.7 13.2 D 13.0 (11.5-15.4) g/dL Hct 41.3 37.5 37.1 (35.3-44.9) % Plt Count 174 157 179 (140-400) K/mcL Neutrophils # 16.2 H 19.8 H (1.6-8.9) K/mcL 06/11/18 Range/Units 08:55 WBC 20.6 H (4.3-11.1) K/mcL Hgb 11.4 L D (11.5-15.4) g/dL Hct 32.8 L (35.3-44.9) % Plt Count 154 (140-400) K/mcL Neutrophils # 17.8 H (1.6-8.9) K/mcL BMP 06/10/18 06/11/18 12:24 04:31 Sodium 127 L 128 L Potassium 3.8 3.4 L Chloride 89 L 95 L Carbon Dioxide 27 20 L BUN 29 H 23 Creatinine 1.10 0.89 Glucose 142 H 151 H Calcium 8.8 7.7 L Cardiac Enzymes 06/10/18 Range/Units 12:24 Troponin I < 0.03 (< 0.04) ng/mL Liver Function 06/10/18 06/11/18 Range/Units 12:52 04:31 Total Bilirubin 2.9 H 1.9 H (0.3-1.0) mg/dL Direct Bilirubin 1.0 H (0.0-0.2) mg/dL AST 29 26 (13-39) Units/L ALT 27 24 (7-52) Units/L Alkaline Phosphatase 85 74 (34-104) Units/L Albumin 3.8 3.0 L (3.5-5.7) g/dL - ABG Interpretation ABG results: PT/INR, D-dimer PT 20.9 Seconds (9.4-12.1) H 06/11/18 04:31 - Impressions Impressions Chest X-Ray 06/10/18 12:01 IMPRESSION: No acute process. D/ / Bernardino Cohen MD / Bernardino Cohen MD Interpreting Provider: Bernardino Cohen MD Abdomen/Pelvis CT 06/10/18 13:56 IMPRESSION: Subcutaneous soft tissue stranding and gas along the right aspect of the gluteal cleft. Findings may be iatrogenic if patient has had recent incision and drainage; otherwise, findings are worrisome for necrotizing cellulitis. No drainable focal abscess. Mildly nodular hepatic contour, which appears new since 04/01/2014. Correlate with clinical evidence of cirrhosis. D/ / 06/10/2018 16:48:49 Valente Acevedo MD / anuj Interpreting Provider: Valente Acevedo MD Consult Discharge Plan - Plan Referrals: Shravan Hartmann MD [Primary Care Provider] - (1) Cellulitis Qualifiers: Site of cellulitis: buttock Qualified Code(s): L03.317 - Cellulitis of buttock (2) Sepsis Qualifiers: Sepsis type: sepsis due to unspecified organism Qualified Code(s): A41.9 - Sepsis, unspecified organism
--- NOTE | 2018-06-11 10:14 | Infectious Disease Consult ---
Date of Encounter: 06/11/18 Time of Encounter: 10:10 Assessment and Plan (1) Sepsis Status: Acute Assessment and plan: The patient had 3 sepsis criteria on admission. Likely secondary to necrotizing cellulitis and abscess. Improved clinically. White blood cell count is worse this morning. Tachycardia and tachypnea have resolved. Blood cultures drawn 06/10/18 are pending 2 sets. Recommendations: - Await blood and wound cultures. - Wound care per the surgery team. - Continue Vancomycin IV. Pharmacy to dose. Goal trough ~15. - Continue Zosyn 3.375 grams IV Q8H. - Continue clindamycin 600mg IV Q8H for now. If no group A strep isolated on culture, can discontinue. - Duration of treatment depends on the clinical picture. - Monitor renal function and for drug toxicity and dose-adjust antibiotics. Qualifiers: Sepsis type: sepsis due to unspecified organism Qualified Code(s): A41.9 - Sepsis, unspecified organism (2) Necrotizing cellulitis Status: Acute Assessment and plan: Location: Right gluteal cleft. Etiology: Unclear. CT of the abdomen and pelvis showed subcutaneous straining and gas at the right aspect of the gluteal cleft concerning for necrotizing cellulitis. Gen. surgery consulted. Performed a bedside I&D with no pus noted, but there was necrosis of the wound bed. Wound culture is pending. Surgeries planning for formal debridement at some point once cleared by cardiology. Antibiotic recommendations as above. Wound care per the general surgery team. (3) Abscess of right buttock Status: Acute Assessment and plan: Location: Right buttock. Causative organism unclear. Status post bedside I&D 06/10/[address] Reed. Wound culture is pending. Gen. surgery team is planning for formal debridement once cleared by cardiology. (4) Chronic a-fib Status: Acute (5) (HFpEF) heart failure with preserved ejection fraction Status: Acute (6) Morbid obesity Status: Acute (7) Cirrhosis Status: Suspected Assessment and plan: CT of the abdomen and pelvis showed mildly nodular hepatic contour concerning for cirrhosis. MELD scare 23. Recommend GI to evaluate. Qualifiers: Hepatic cirrhosis type: unspecified hepatic cirrhosis Ascites presence: without ascites Qualified Code(s): K74.60 - Unspecified cirrhosis of liver Infectious Disease HPI - Data of Consult Patient: new to practice Consult date: 06/11/18 Requesting Physician: Bhavna Stallworth MD Primary Care Provider: Shravan Hartmann MD - Consult Narrative Reason for consult: abscess History of present illness: Ms. Carpenter is a 73 year old female with a past medical history of A-fib non-c ompliant with Xarelto, DM, and CHF. The patient was admitted to the hospital 06/10/18 for gluteal cleft abscess. We are consulted 06/11/18 for antibiotic recommendations for abscess. Briefly, the patient is a sad 73-year-old female with a past medical history as stated above. The patient presented to the emergency department on the day of admission with complaints of an abscess to the right gluteal cleft with associated fevers and chills. She reported onset of her symptoms on Sunday with worsening on Sunday. She stated she was advised to come to the emergency department per her primary care provider. Upon arrival, the patient was tachycardic and tachypneic. She had leukocytosis with neutrophilic predominance. Laboratory studies also revealed an elevated ESR of 41 with a CRP of 153 and an elevated total bilirubin of 2.9. Chest x-ray was negative. CT of the abdomen and pelvis showed subcutaneous stranding and gas at the right aspect gluteal cleft concerning for necrotizing cellulitis as well as mildly nodular hepatic contour concerning for cirrhosis. Blood cultures were obtained 2 sets. She was given IV vancomycin and Zosyn. Gen. surgery was consulted and performed a bedside I&D and was noted to have necrotic tissue in the wound. She was admitted to the hospital for further evaluation and treatment. Since admission, the patient has remained afebrile. Her white blood cell count has actually worsened today and is 23,000 with neutrophilic predominance. Currently, she is on vancomycin, Zosyn, and clindamycin. We have been asked to evaluate and make further recommendations. During my exam today, the patient endorsed the history as stated above. She reports some subjective chills, but denies any fevers or rigors prior to admission. She reports some intermittent headaches, but denies any neck pain or stiffness. Denies any congestion, earache, or sore throat. Denies any chest pain, shortness of breath, or cough. Denies any nausea, vomiting, diarrhea, co nstipation. She does report generally feeling overall poor and states her appetite is not very good. She states the area to the right gluteus was tender, but not excruciatingly painful and the pain seems to be worse when she is sitting. She reports a small amount of brownish bloody drainage from the site prior to presentation. She states the site was red and angry and warm to touch. She denies any trauma or what caused this area to pop up. She denies any oral thrush or additional skin lesions. She states she has never had anything like this before. The patient lives at home with her . She does not recall outside the home. She does have 2 dogs, but denies any bites or scratches. She denies any recent travel outside the [facility]. She denies any tobacco, alcohol, or illicit drug use. She denies any chronic infectious diseases. CC: Bhavna Stallworth MD Past Med Surg Social Fam HX - Past Medical History Attestation: Yes The following information was validated with the patient. Source: patient, old records reviewed, nursing notes reviewed Medical history: atrial fibrillation, CHF, diabetes, hypertension Psychiatric history: no psych history - Past Surgical History Surgical History: breast surgery, cholecystectomy, hysterectomy, knee replacement Additional surgical history: stomach beck, hernia right side, tummy tuck - Social History Smoking Status: Never smoker Smokeless Tobacco Status: No Alcohol use: none Drug use: none Infectious Disease-CN:Meds Atorvastatin Calcium [Lipitor] 20 mg PO QPM 06/10/18 [History] Furosemide [Lasix] 20 mg PO Q48H 06/10/18 [History] Lisinopril [Zestril] 40 mg PO DAILY 06/10/18 [History] Metoprolol Succinate [Toprol Xl] 50 mg PO DAILY 06/10/18 [History] Multivit-Min/FA/Lycopen/Lutein [A Thru Z Select Multivit Tab] 1 tab PO DAILY 06/10/18 [History] RX: hydroCHLOROthiazide [Hydrochlorothiazide] 25 mg PO DAILY 06/10/18 [History] Rivaroxaban [Xarelto] 20 mg PO DAILY 06/10/18 [History] Ubidecarenone [Co Q-10] 100 mg PO DAILY 06/10/18 [History] Allergy/AdvReac Type Severity Reaction Status Date / Time iodine Allergy Unknown unknown Uncoded 08/07/15 05:00 All systems: reviewed and no additional remarkable complaints except as stated Exam - Constitutional Vitals: Temp Pulse Resp BP Pulse Ox 97.7 F 90 15 104/68 93 06/11/18 08:10 06/11/18 08:10 06/11/18 08:10 06/11/18 08:10 06/11/18 08:10 General appearance: cooperative, no acute distress, obese - Head Head exam: Present: atraumatic, normal inspection, normocephalic - Eye Eye exam: Present: EOMI, normal appearance, PERRL Pupils: Present: normal accommodation - ENT ENT exam: Present: mucous membranes moist - Neck Neck exam: Present: normal inspection - Respiratory Respiratory exam: Present: CTAB. Absent: rales, respiratory distress, rhonchi, wheezes - Cardiovascular Cardiovascular exam: Present: irregular rhythm, +S1, +S2. Absent: tachycardia - GI/Abdominal GI/Abdominal exam: Present: distended (Obese), normal bowel sounds, soft. Absent: tenderness - Extremities Exam Extremities exam: Present: normal inspection. Absent: joint swelling, pedal edema, tenderness - Back Exam Back exam: Present: normal inspection - Neurological Exam Neurological exam: Present: alert, oriented X3, no focal deficits - Psychiatric Psychiatric exam: Present: normal affect, normal mood - Skin Skin exam: Present: dry, intact, normal color, warm - Expanded Skin Exam 1 - Palpable subcutaneous mass noted to the right gluteal cleft with surrounding erythema, warmth, and tenderness. Light brown drainage noted on the bedding underneath the patient, that the current dressing is clean, dry, and intact. There is a foul odor noted during evaluation of the wound. Infectious Disease CN: Results - Labs CBC & Chem 7: 06/11/18 08:55 06/11/18 04:31 Cultures: Cultures 06/10/18 12:52 Blood Culture - Preliminary Peripheral Venipuncture Culture is incubating and being continuously monitored for growth. Final report to follow. 06/10/18 12:52 Blood Culture - Preliminary Peripheral Venipuncture Culture is incubating and being continuously monitored for growth. Final report to follow. Consult Discharge Plan - Plan Referrals: Shravan Hartmann MD [Primary Care Provider] - - Attending Attestation I examined this patient and my medical decision-making was reviewed with the Resident Physician. I agree with the documented findings, disposition and treatment plan as described except to the extent set forth below. This is an addendum to original report dictated by Mar Haywood CNP. Please refer to Joceline note for full details. Patient is a 75 year old lady with past medical history mentioned below including diabetes mellitus type 2, congestive heart failure, atrial fibrillation and apparently liver cirrhosis which is newly diagnosed on this admission with a meld score around 23 came in with a cellulitis and abscess of the right gluteal cleft. Patient also had sepsis like picture with 3 SIRS criteria on admission. Patient had an I&D done at bedside eye surgery and wound cultures were sent. Patients CT is suggestive of necrotizing fasciitis so patient was started on broad-spectrum antibiotics including vancomycin, Zosyn and clindamycin. We were asked to evaluate the patients make further recommendations. Assessment and plan: Sepsis Necrotizing cellulitis Abscess of the right buttock Liver cirrhosis Chronic A. fib Recommendations: At this point not sure what the organism is causing the necrotizing fasciitis. Await cultures to finalize. If there is no group A strep, stop the clindamycin to minimize adverse reaction including diarrhea Duration of treatment depends on the clinical picture Monitor labs and for drug toxicity Goal vancomycin trough around 10 next
--- NOTE | 2018-06-11 12:19 | Electrocardiograph Report ---
[address] [place] [address] Test Date: 2018-06-11 Pat Name: Shellie Carpenter Department: 115 Room: 3A43 Gender: F [employer]: NOAH : 1945 Requested By: Bhavna Stallworth Order Number: [id number] Reading MD: Luke Cortes Measurements Intervals Garvin Rate: 76 P: [place]: 0 QRS: 93 QRSD: 101 T: 0 QT: 402 QTc: 432 Interpretive Statements ATRIAL FIBRILLATION BORDERLINE RIGHT AXIS DEVIATION NONSPECIFIC T-WAVE ABNORMALITY Electronically Signed On 06-11-2018 12:18:13 EST by Luke Cortes
--- NOTE | 2018-06-11 15:47 | General Surgery Progress Note ---
<Erick Haro - Last Filed: 06/11/18 17:31> Date of Encounter: 06/11/18 Time of Encounter: 11:00 - Assessment and Plan (1) Abscess of right buttock Current Visit: Yes Status: Acute CT (06/10) concerning for necrotizing cellulitis WBC elevated at 18.3 > 23.3 > 20.6 today, continue to monitor Dr. Reed performed incision and drainage in ED on 06/10, found necrotic tissue Patient noted to have pulm HTN on previous echo (2014) Cardiology consulted for surgical clearance Patient to have echo today Patient had 1/2 of NM stress test today, will have other 1/2 tomorrow NPO at midnight in case the need for exploratory surgery in next 24 hours Patient may have subcutaneous heparin TID Please hold heparin drip for now Patient on clindamycin, zosyn, and vancomycin Percocet for moderate pain and SL morphine for severe pain Zofran for nausea Protonix for GI prophylaxis IVF 125 ml/hr Ordered aerobic and anaerobic wound cultures PT/INR in morning Subjective Patient reports: no new complaints, feels better, pain is less Narrative: Patient is doing well this morning. She states her pain is much improved from yesterday. She denies nausea, vomiting, fevers/chills, CP. Patient does admit to some SOB. Objective Vital Signs - Last 8 Hours Temp Pulse Resp BP Pulse Ox 06/11/18 15:31 97.9 F 73 14 93 06/11/18 11:35 97.6 F 74 14 112/48 94 06/11/18 08:10 97.7 F 90 15 104/68 93 Intake and Output 06/10/18 06/11/18 06/11/18 23:59 07:59 15:59 Intake Total 1702 / 1702 1363 / 1363 521 / 521 Output Total 0 / 0 0 / 0 Balance 1702 / 1702 1363 / 1363 521 / 521 Intake: IV Fluids 1702 / 1702 1363 / 1363 521 / 521 0.9 % Sodium Chloride 1,000 ML 1000 / 1000 1000 / 1000 @ 125 mls/hr IVC .Q8H [facility] Rx#: [id number] Heparin 25,000 UNIT/500 ML D5W 213 / 213 71 / 71 25,000 unit In 500 ml @ 14 UNIT /KG/HR 27.56 mls/hr IVC .Q18H9M [facility] Rx#:[id number] Cleocin Premix 900 MG/50 ML 900 50 / 50 50 / 50 mg In 50 ml @ 50 mls/hr IVPB Q8HR [facility] Rx#:[id number] Magnesium Sulfate 1 GM In 0.9 % 102 / 102 Sodium Chloride 100 ML @ 100 mls/hr IVPB ONCE ONE Rx#: [id number] Zosyn 3.375 GM In 0.9 % Sodium 100 / 100 100 / 100 Chloride (Mini-Bag +) 100 ML @ 25 mls/hr IVPB Q8HR [facility] Rx#: [id number] Potassium Chloride 10 mEq/100mL 400 / 400 10 meq In 100 ml @ 100 mls/hr IVPB Q1H [facility] Rx#:[id number] Vancocin 2,000 MG In 0.9 % 500 / 500 Sodium Chloride 500 ML @ 250 mls/hr IVPB ONCE ONE Rx#: [id number] Oral 0 / 0 0 / 0 Output: Urine 0 / 0 0 / 0 Other: Meal NPO # Voids 1 # Bowel Movements 0 Weight 101.5 kg Blood Glucose* 138 160 123 - General physical appearance well developed, no distress - Respiratory normal expansion, normal respiratory effort - Cardiovascular Cardiovascular exam: Present: RRR - Abdomen Abdomen: Present: bowel sounds present, soft, non tender - Rectum other (right buttock abscess with iodoform packing, some necrotic tissue inside wound, induration and erythema are slightly improved from yesterday) - Integumentary no rash - Psychiatric oriented to time, oriented to person, oriented to place - Labs 06/11/18 08:55 06/11/18 04:31 Diabetes panel 06/10/18 06/11/18 Range/Units 12:52 04:31 Sodium 128 L (136-145) mEq/L Potassium 3.4 L (3.5-5.1) mEq/L Chloride 95 L (98-107) mEq/L Carbon Dioxide 20 L (23-29) mEq/L BUN 23 (8-23) mg/dL Creatinine 0.89 (0.60-1.20) mg/dL Glucose 151 H (70-105) mg/dL Calcium 7.7 L (8.6-10.3) mg/dL AST 29 26 (13-39) Units/L ALT 27 24 (7-52) Units/L Alkaline Phosphatase 85 74 (34-104) Units/L Albumin 3.8 3.0 L (3.5-5.7) g/dL Calcium panel 06/10/18 06/11/18 Range/Units 12:52 04:31 Calcium 7.7 L (8.6-10.3) mg/dL Albumin 3.8 3.0 L (3.5-5.7) g/dL Pituitary panel 06/11/18 Range/Units 04:31 Sodium 128 L (136-145) mEq/L Potassium 3.4 L (3.5-5.1) mEq/L Chloride 95 L (98-107) mEq/L Carbon Dioxide 20 L (23-29) mEq/L BUN 23 (8-23) mg/dL Creatinine 0.89 (0.60-1.20) mg/dL Glucose 151 H (70-105) mg/dL Calcium 7.7 L (8.6-10.3) mg/dL Adrenal panel 06/10/18 06/11/18 Range/Units 12:52 04:31 Sodium 128 L (136-145) mEq/L Potassium 3.4 L (3.5-5.1) mEq/L Chloride 95 L (98-107) mEq/L Carbon Dioxide 20 L (23-29) mEq/L BUN 23 (8-23) mg/dL Creatinine 0.89 (0.60-1.20) mg/dL Glucose 151 H (70-105) mg/dL Calcium 7.7 L (8.6-10.3) mg/dL Total Bilirubin 2.9 H 1.9 H (0.3-1.0) mg/dL AST 29 26 (13-39) Units/L ALT 27 24 (7-52) Units/L Alkaline Phosphatase 85 74 (34-104) Units/L Albumin 3.8 3.0 L (3.5-5.7) g/dL Consult Discharge Plan - Plan Referrals: Shravan Hartmann MD [Primary Care Provider] - <Zack Reed - Last Filed: 06/12/18 14:44> Date of Encounter: 06/11/18 Objective Vital Signs - Last 8 Hours Temp Pulse Resp BP Pulse Ox 06/12/18 10:56 98.4 F 77 16 90/56 94 1114/18 06:59 97.6 F 73 18 85/52 97 Intake and Output 06/11/18 06/12/18 06/12/18 23:59 07:59 15:59 Intake Total 400 / 400 150 / 150 1252 / 1252 Output Total 0 / 0 0 / 0 Balance 400 / 400 150 / 150 1252 / 1252 Intake: IV Fluids 400 / 400 150 / 150 1252 / 1252 0.9 % Sodium Chloride 1,000 ML 1000 / 1000 @ 125 mls/hr IVC .Q8H [facility] Rx#: [id number] Cleocin Premix 900 MG/50 ML 900 50 / 50 50 / 50 50 / 50 mg In 50 ml @ 50 mls/hr IVPB Q8HR [facility] Rx#:[id number] Magnesium Sulfate 1 GM In 0.9 % 102 / 102 Sodium Chloride 100 ML @ 100 mls/hr IVPB ONCE ONE Rx#: [id number] Zosyn 3.375 GM In 0.9 % Sodium 100 / 100 100 / 100 100 / 100 Chloride (Mini-Bag +) 100 ML @ 25 mls/hr IVPB Q8HR [facility] Rx#: [id number] Vancocin 1,250 MG In 0.9 % 250 / 250 Sodium Chloride 250 ML @ 166.67 mls/hr IVPB Q24H [facility] Rx#: [id number] Oral 0 / 0 0 / 0 0 / 0 Output: Urine 0 / 0 0 / 0 Other: Percent of Meal Consumed 10% # Voids 1 1 # Bowel Movements 0 Weight 101.9 kg Blood Glucose* 123 90 105 Patient Weight 06/12/18 23:59 Weight 101.9 kg - Labs 06/12/18 05:06 06/12/18 05:06 Diabetes panel 06/12/18 Range/Units 05:06 Sodium 130 L (136-145) mEq/L Potassium 3.5 (3.5-5.1) mEq/L Chloride 99 (98-107) mEq/L Carbon Dioxide 22 L (23-29) mEq/L BUN 30 H (8-23) mg/dL Creatinine 1.46 H (0.60-1.20) mg/dL Glucose 106 H (70-105) mg/dL Calcium 7.4 L (8.6-10.3) mg/dL Calcium panel 06/12/18 Range/Units 05:06 Calcium 7.4 L (8.6-10.3) mg/dL Pituitary panel 06/12/18 Range/Units 05:06 Sodium 130 L (136-145) mEq/L Potassium 3.5 (3.5-5.1) mEq/L Chloride 99 (98-107) mEq/L Carbon Dioxide 22 L (23-29) mEq/L BUN 30 H (8-23) mg/dL Creatinine 1.46 H (0.60-1.20) mg/dL Glucose 106 H (70-105) mg/dL Calcium 7.4 L (8.6-10.3) mg/dL Adrenal panel 06/12/18 Range/Units 05:06 Sodium 130 L (136-145) mEq/L Potassium 3.5 (3.5-5.1) mEq/L Chloride 99 (98-107) mEq/L Carbon Dioxide 22 L (23-29) mEq/L BUN 30 H (8-23) mg/dL Creatinine 1.46 H (0.60-1.20) mg/dL Glucose 106 H (70-105) mg/dL Calcium 7.4 L (8.6-10.3) mg/dL - Attending Attestation I examined this patient and my medical decision-making was reviewed with the Resident Physician. I agree with the documented findings, disposition and treatment plan as described except to the extent set forth below. Review the assessment and evaluation and agree with the above plan. White count initially was 23,000 but on repeat several hours later started to decrease to 20 ,000. On IV antibiotics. The wound and erythema has not worsened and appears to be slightly faded laterally. Cardiology has been consulted and will be performing a stress test. Will hold on expiration at this time and sleep follow the patient's white count and the wound itself. At this time it appears that the wound is stable and there is no expanding cellulitis. Emend holding on IV heparin in would recommend subcutaneous heparin at this time.
[2018-06-11] MEDS: *HR* Heparin 5,000 UNIT/ML VIAL SQ SCH ×2 (16:54→21:38)
--- NOTE | 2018-06-11 18:03 | Cardiology Consult Note ---
Date of Encounter: 06/11/18 Time of Encounter: 13:00 Assessment and Plan (1) Preoperative cardiovascular examination Current Visit: Yes Status: Acute Patient with poor functional status, able to perform less than 4 METs. Although she has no active cardiac condition at this time, we will risk stratify her further with a pharmacological nuclear stress test. Obtain echocardiogram (2) Atrial fibrillation Current Visit: Yes Status: Acute Currently rate controlled. Continue Toprol and IV heparin to therapeutic PTT Qualifiers: Atrial fibrillation type: persistent Qualified Code(s): I48.1 - Persistent atrial fibrillation (3) Pulmonary hypertension Current Visit: Yes Status: Acute Transthoracic echocardiogram 03/2015 showed mod to severe pulmonary hypertension. We will obtain echocardiogram in this admission Discussion w patient/family: The assessment and plan as outlined above was discussed with the patient and/or family members who expressed understanding and agreement. All questions were answered. Thank you for involving us in the care of your patient. Please call with any questions. History of Present Illness Consult date: 06/11/18 Requesting physician: Bhavna Stallworth Consult reason: Preoperative cardiovascular examination Chief complaint: Right gluteal infection History of present illness: Ms. Carpenter is a 73 year old female 73 year old female with history of atrial fibrillation, diastolic heart failure, who presented with right gluteal soft tissue infection. Being planned for wound debridement. Cardiology consulted for preoperative cardiovascular examination. Patient denies history of coronary artery disease, however she states that she gets short of breath when she walks up a flight of stairs. No chest pain or palpitations. Last stress test was over 4 years ago. She has never had a coronary angiogram. Past Med Surg Social Fam HX - Past Medical History Medical history: atrial fibrillation, CHF, diabetes, hypertension Psychiatric history: no psych history - Past Surgical History Surgical History: breast surgery, cholecystectomy, hysterectomy, knee replacement Additional surgical history: stomach beck, hernia right side, tummy tuck - Social History Smoking Status: Never smoker Smokeless Tobacco Status: No Alcohol use: none Drug use: none Medications and Allergies Atorvastatin Calcium [Lipitor] 20 mg PO QPM 06/10/18 [History] Furosemide [Lasix] 20 mg PO Q48H 06/10/18 [History] Lisinopril [Zestril] 40 mg PO DAILY 06/10/18 [History] Metoprolol Succinate [Toprol Xl] 50 mg PO DAILY 06/10/18 [History] Multivit-Min/FA/Lycopen/Lutein [A Thru Z Select Multivit Tab] 1 tab PO DAILY 06/10/18 [History] Rivaroxaban [Xarelto] 20 mg PO DAILY 06/10/18 [History] Ubidecarenone [Co Q-10] 100 mg PO DAILY 06/10/18 [History] hydroCHLOROthiazide [Hydrochlorothiazide] 25 mg PO DAILY 06/10/18 [History] Allergy/AdvReac Type Severity Reaction Status Date / Time iodine Allergy Unknown unknown Uncoded 08/07/15 05:00 All Systems Review: The remainder of the systems were reviewed and are negative - Constitutional Constitutional: no anorexia, no fatigue - EENT Eyes: no blurred vision Nose, mouth and throat: no bleeding gums - Cardiovascular Cardiovascular: no diaphoresis, no orthopnea - Respiratory Respiratory: no hemoptysis - Gastrointestinal Gastrointestinal: no abdominal pain - Genitourinary Genitourinary: no dysuria - Integumentary Integumentary: no unusual bruising - Neurological Neurological: no abnormal speech - Psychiatric Psychiatric: no hallucinations - Hematological/Lymphatic Hematologic/Lymphatic: no easy bleeding Physical Examination Vital Signs, Last 4 Hours Temp Pulse Resp Pulse Ox 06/11/18 15:31 97.9 F 73 14 93 General: Conversant, No Apparent Distress HEENT: Normocephaly Neck: No JVD Cardiac: Reg Rate and Rhythm, Normal S1 and S2, No Murmur Lungs: Normal Breath Sounds, No Wheeze, Rales, Rhonchi Neuro: Alert and responsive Abdomen: Soft Musculoskeletal: No Chest Wall Tenderness Extremities: No Edema Results 06/11/18 08:55 06/11/18 04:31 Lab Results 06/10/18 06/10/18 06/10/18 12:24 21:12 21:12 WBC 19.8 H Hgb 13.2 D Hct 37.5 Plt Count 157 INR 1.6 1.7 Sodium Potassium Chloride Carbon Dioxide BUN Creatinine Glucose Calcium Total Bilirubin AST ALT Alkaline Phosphatase 06/11/18 06/11/18 06/11/18 04:31 04:31 04:31 WBC 23.3 H Hgb 13.0 Hct 37.1 Plt Count 179 INR 1.9 Sodium 128 L Potassium 3.4 L Chloride 95 L Carbon Dioxide 20 L BUN 23 Creatinine 0.89 Glucose 151 H Calcium 7.7 L Total Bilirubin 1.9 H AST 26 ALT 24 Alkaline Phosphatase 74 06/11/18 08:55 WBC 20.6 H Hgb 11.4 L D Hct 32.8 L Plt Count 154 INR Sodium Potassium Chloride Carbon Dioxide BUN Creatinine Glucose Calcium Total Bilirubin AST ALT Alkaline Phosphatase Consult Discharge Plan - Plan Referrals: Shravan Hartmann MD [Primary Care Provider] -
[2018-06-11] MEDS ORDERED: Perflutren Lipid Microsphere 1.3 ML in 0.9 % Sodium Chloride 8.7 ML IVP ONE (19:19)
[2018-06-11] MEDS ORDERED: 0.9 % Sodium Chloride 250 ML IVC ONE (23:35)
[2018-06-12] MEDS: Clindamycin 900 MG/50 ML 900 MG/50 ML IV.SOLN IVPB SCH ×2 (00:04→08:56)
[2018-06-12] MEDS: Piperacillin/Tazobactam 3.375 GM in 0.9 % Sodium Chloride Mini Bag 100 ML IVPB SCH ×3 (00:05→15:01)
[2018-06-12] MEDS: 0.9 % Sodium Chloride 1,000 ML IVC SCH ×3 (00:11→21:21)
[2018-06-12] MEDS: Insulin LISPRO 300 UNITS/3 ML VIAL SQ SCH ×5 (01:14→21:20)
[2018-06-12] MEDS ORDERED: Regadenoson 0.4 MG/5 ML SYRINGE IVP ONE (05:36)
[2018-06-12 05:51] LABS: Basophils % 0.3 %; Eosinophils % 0.3 %; Hematocrit 31.8 % (35.3-44.9); Hemoglobin 10.9 g/dL (11.5-15.4); Immature Granulocytes % 1.7 % (0-4); Lymphocytes # 0.9 K/mcL (0.6-4.6); Lymphocytes % 6.2 %; Mean Corpuscular HGB Conc 34.3 g/dL (31.6-35.5); Mean Corpuscular Hemoglobin 32.9 pg (28.0-33.3); Mean Corpuscular Volume 96.1 fL (83.0-100.0); Mean Platelet Volume 10.3 fL (9.4-12.4); Monocytes # 0.9 K/mcL (0.0-1.3); Neutrophils # 12.6 K/mcL (1.6-8.9); Platelet Count 152 K/mcL (140-400); Red Blood Count 3.31 M/mcL (3.82-4.97); Red Cell Distribution Width 13.1 % (11.5-14.5); Segmented Neutrophils % 85.5 %
[2018-06-12 05:59] LABS: INR 1.5; Prothrombin Time 16.9 Seconds (9.4-12.1)
[2018-06-12] MEDS: *HR* Heparin 5,000 UNIT/ML VIAL SQ SCH ×2 (06:11→15:02)
[2018-06-12 07:05] LABS: Calcium 7.4 mg/dL (8.6-10.3); Magnesium 1.7 mg/dL (1.6-2.6); Potassium 3.5 mEq/L (3.5-5.1)
[2018-06-12] MEDS: Metoprolol XL (24 HR) Succ 50 MG TAB.ER.24H PO SCH (08:00)
[2018-06-12] MEDS: Multivit/Ca/Min/Fe/FA 1 TAB TABLET PO SCH (08:00)
[2018-06-12] MEDS: Ondansetron 4 MG/2 ML VIAL IVP PRN (08:57)
[2018-06-12] MEDS: Pantoprazole 40 MG VIAL IVP SCH (08:57)
--- NOTE | 2018-06-12 09:52 | Internal Med Progress Note ---
Hospitalist Progress Note - Encounter Date of Encounter: 06/12/18 Time of Encounter: 08:00 - Subjective Interval History: Patient was seen and examined at bedside. Pain is controlled, tolerated PO diet she denies fever, chils, CP, SOb, cough, palpitations, N/v/D - Exam Vitals: Temp Pulse Resp BP Pulse Ox 97.6 F 73 18 85/52 97 06/12/18 06:59 06/12/18 06:59 06/12/18 06:59 06/12/18 06:59 06/12/18 06:59 Exam: General: Patient is alert, oriented, no acute distress, morbidly obese Head: atraumatic, normocephalic, Eye: normal appearance, PERRL, no scleral icterus, no conjunctival injection ENT: mucous membranes moist, normal external ear exam Neck: normal inspection, trachea midline, full ROM, no carotid bruits Chest: normal inspection, symmetric chest rise Respiratory: distant breathsounds secondary to body habitus, Bilateral breath sounds are clear without wheezing, crackles, or rhonchi. Cardiovascular: distent heart sounds secondary to body habitus, irregular s1 and s2 No clicks, rubs, gallops, or murmors. Abdomen: Bowel sounds present normoactive x-4 quadrants. Abdomen is soft, nondistended. no Epigastric tenderness. No guarding or rebound. No organomegaly noted, obese musculoskeletal: Spontaneously moving all extremities. no edema, no calf tenderness Skin: warm, dry, intact. S/p I&D eryhthema Neuro: Alert and oriented x4. Sensation light touch intact. Cranial nerves 2- 12 is intact. no focal deficit Psych: Patient's affect is normal - Assessment and Plan (1) Cellulitis Current Visit: Yes Status: Acute Assessment and Plan: CT abdomen and pelvis worrisome for necrotizing cellulitis Surgery was consulted in the emergency department- Dr. Reed performed bedside I&D will most likely need to have debridement in the OR pending clearance On vancomycin, Zosyn, clindamycin IV fluids watch for overload ESR 41 CRP 153 Lactic acid 1.5 ID consulted will follow recommendations High risk for surgery cardiology consulted for Preop- clearance- pending stress test and Echocardiogram CT A/p IMPRESSION: Subcutaneous soft tissue stranding and gas along the right aspect of the gluteal cleft. Findings may be iatrogenic if patient has had recent incision and drainage; otherwise, findings are worrisome for necrotizing cellulitis. No drainable focal abscess. Mildly nodular hepatic contour, which appears new since 04/01/2014. Correlate with clinical evidence of cirrhosis. (2) Sepsis Current Visit: Yes Status: Acute Assessment and Plan: secondary gluteal cellulitis / ? necrotizing cellulitis WBC count: 18.3 / HR 104 BCx NGTD Wound CX sent by surgery Surgery on board (3) Moderate to severe pulmonary hypertension Current Visit: Yes Status: Acute Assessment and Plan: see on TTE in 2014 Moderate-severe pulmonary hypertension. Estimated RVSP is 55 mmHg. DUO nebs Q4H is not compliant to xarelto is at high risk for DVT and PE secondary to morbid obesity and poor ambulation wells criteria 6 also most likely has GABRIEL - never had sleep study as OP Echocardiogram -pending continue Oxygen via NC keep sats >92% Bipap at nights off heparin drip as per surgery - patient is in agreement understanding risk and benefits (4) ARF (acute renal failure) Current Visit: Yes Status: Acute Assessment and Plan: most likely secondary to hypotension ( BP trended yudith on the early AM on 06/12) continue IVF watch for overload vancomycin - pharmacy to dose avoid nephrotoxic medications BP meds and diuretics on hold for now (5) Chronic a-fib Current Visit: Yes Status: Acute Assessment and Plan: continue metoprolol Xarelto on hold for surgery Chads vasc of 6 - off heparin drip as per surgery - patient is in agreement understanding risk and benefits (6) (HFpEF) heart failure with preserved ejection fraction Current Visit: Yes Status: Acute Assessment and Plan: Continue BB, statins, ACEI currently not in exacerbation BIPAP at nights keep saturations above 92% Echocardiogram - pending TTE in 03/2015 LVEF 65-70%. Normal left ventricular structure and function. Indeterminate diastolic function. Normal right ventricular structure and function. Moderate posterior mitral annular calcification. Posterior leaflet with reduced mobility. No mitral stenosis. Trace mitral regurgitation. Mild tricuspid regurgitation. Moderate-severe pulmonary hypertension. Estimated RVSP is 55 mmHg (7) Morbid obesity Current Visit: Yes Status: Acute Assessment and Plan: BMI 42.4 Nutrition (8) Hyponatremia Current Visit: Yes Status: Acute Assessment and Plan: most likely secondary to poor oral intake - improving continue IVF - watch for overload held lasix and HCTZ for now as she is hyponatremic fluid restriction to 1 L (9) Hypomagnesemia Current Visit: Yes Status: Resolved Assessment and Plan: resolved (10) Hypokalemia Current Visit: Yes Status: Acute Assessment and Plan: repalced - resolved (11) DVT prophylaxis Current Visit: Yes Status: Acute Assessment and Plan: heparin SC off heparin drip as per surgery - patient is in agreement understanding risk and benefits Xarelto on hold - Time Spent with Patient Total time spent is greater than 50% in coordination of care (as documented) at patient's floor/unit and/or counseling patient: Internal Medicine: Result - Labs CBC & Chem 7: 06/12/18 05:06 06/12/18 05:06 Labs: Short CBC 06/12/18 Range/Units 05:06 WBC 14.7 H (4.3-11.1) K/mcL Hgb 10.9 L (11.5-15.4) g/dL Hct 31.8 L (35.3-44.9) % Plt Count 152 (140-400) K/mcL Neutrophils # 12.6 H (1.6-8.9) K/mcL BMP 06/12/18 05:06 Sodium 130 L Potassium 3.5 Chloride 99 Carbon Dioxide 22 L BUN 30 H Creatinine 1.46 H Glucose 106 H Calcium 7.4 L - ABG Interpretation ABG results: PT/INR, D-dimer PT 16.9 Seconds (9.4-12.1) H 06/12/18 05:06 - Impressions Impressions Abdomen/Pelvis CT 06/10/18 13:56 IMPRESSION: Subcutaneous soft tissue stranding and gas along the right aspect of the gluteal cleft. Findings may be iatrogenic if patient has had recent incision and drainage; otherwise, findings are worrisome for necrotizing cellulitis. No drainable focal abscess. Mildly nodular hepatic contour, which appears new since 04/01/2014. Correlate with clinical evidence of cirrhosis. D/ / 06/10/2018 16:48:49 Valente Acevedo MD / [email or web address] Interpreting Provider: Valente Acevedo MD Echocardiogram 06/11/18 12:15 Impressions: LVEF 65-70%. Normal LV chamber size and systolic function. Mild concentric left ventricular hypertrophy. Indeterminate diastolic function. Normal right ventricular structure and function. Mildly dilated left atrium. Mildly dilated right atrium. Severe mitral posterior leaflet calcification without stenosis. Mild tricuspid regurgitation. Severe pulmonary hypertension. Left Ventricular Wall Motion: Rest Echo Findings All wall segments showed normal motion. Findings: Study Quality * Technically adequate exam. ECG Findings * Atrial fibrillation. Left Ventricle * LVEF 65-70%. * Normal LV chamber size and systolic function. * Mild concentric left ventricular hypertrophy. * Indeterminate diastolic function. Right Ventricle * Normal right ventricular structure and function. Left Atrium * Mildly dilated left atrium. Right Atrium * Mildly dilated right atrium. Interatrial Septum * Interatrial septum not well evaluated. Aortic Valve * Trileaflet aortic valve with normal function. * No aortic regurgitation. * No aortic stenosis. Mitral Valve * Severe posterior leaflet calcification. * Moderate mitral annulus calcification. * Trace mitral regurgitation. * No mitral stenosis. Tricuspid Valve * Normal tricuspid valve structure. * No tricuspid stenosis. * Mild tricuspid regurgitation. * Estimated RVSP is 71 mmHg. * Estimated RA pressure is 10 mmHg. * Severe pulmonary hypertension. Pulmonic Valve * Pulmonic valve is not well visualized. * No pulmonic stenosis. * Trace pulmonic regurgitation. Aorta * Normally sized aortic root. Pericardium * The pericardium appears normal. IVC * Normal IVC dimensions and inspiratory collapse. Consult Discharge Plan - Plan Referrals: Shravan Hartmann MD [Primary Care Provider] - (1) Cellulitis Qualifiers: Site of cellulitis: buttock Qualified Code(s): L03.317 - Cellulitis of buttock (2) Sepsis Qualifiers: Sepsis type: sepsis due to unspecified organism Qualified Code(s): A41.9 - Sepsis, unspecified organism (4) ARF (acute renal failure) Qualifiers: Acute renal failure type: unspecified Qualified Code(s): N17.9 - Acute kidney failure, unspecified
--- NOTE | 2018-06-12 11:03 | Infectious Disease Progress No ---
Date of Encounter: 06/12/18 Time of Encounter: 11:01 - Assessment and Plan (1) Sepsis Current Visit: Yes Status: Acute The patient had 3 sepsis criteria on admission. Likely secondary to necrotizing cellulitis and abscess. Improved clinically. White blood cell count is improved. Tachycardia and tachypnea have resolved. Blood cultures drawn 06/10/18 are no growth 2 sets. Recommendations: - Await blood and wound cultures are finalized. - Wound care per the surgery team. - Continue Vancomycin IV. Pharmacy to dose. Goal trough ~15. - Continue Zosyn 3.375 grams IV Q8H. - Discontinue clindamycin. - Duration of treatment depends on the clinical picture. - Monitor renal function and for drug toxicity and dose-adjust antibiotics. Qualifiers: Sepsis type: sepsis due to unspecified organism Qualified Code(s): A41.9 - Sepsis, unspecified organism (2) Necrotizing cellulitis Current Visit: Yes Status: Acute Location: Right gluteal cleft. Etiology: Unclear. CT of the abdomen and pelvis showed subcutaneous straining and gas at the right aspect of the gluteal cleft concerning for necrotizing cellulitis. Gen. surgery consulted. Performed a bedside I&D with no pus noted, but there was necrosis of the wound bed. Wound culture is no growth to date. Surgery is planning for formal debridement at some point once cleared by cardiology. Antibiotic recommendations as above. Wound care per the general surgery team. (3) Abscess of right buttock Current Visit: Yes Status: Acute Location: Right buttock. Causative organism unclear. Status post bedside I&D 06/10/[address] Reed. Wound culture is no growth. Gen. surgery team is planning for formal debridement once cleared by cardiology. (4) Chronic a-fib Current Visit: Yes Status: Acute (5) (HFpEF) heart failure with preserved ejection fraction Current Visit: Yes Status: Acute (6) Morbid obesity Current Visit: Yes Status: Acute (7) Cirrhosis Current Visit: Yes Status: Suspected CT of the abdomen and pelvis showed mildly nodular hepatic contour concerning for cirrhosis. MELD scare 23. Recommend GI to evaluate. Qualifiers: Hepatic cirrhosis type: unspecified hepatic cirrhosis Ascites presence: without ascites Qualified Code(s): K74.60 - Unspecified cirrhosis of liver - Subjective Interval history: Patient seen and examined. No acute events noted overnight. Status post nuclear stress test this morning pending results. States she is unsure she is going to the operating room today and is waiting to hear from the general surgery team. Denies any fevers or chills or rigors. Denies any chest pain, cough, but she does report some mild shortness of breath. She denies any nausea, vomiting, diarrhea, or constipation. She did report an episode of emesis last night, but none this morning. She is nothing by mouth for possible surgery later today. She denies abdominal pain, urinary complaints, or appetite changes. She denies any pain at the site of the cellulitis/abscess. She denies any oral thrush or new skin lesions. Infect Dis PN-Objective Data - Labs CBC & Chem 7: 06/12/18 05:06 06/12/18 05:06 Labs: Laboratory Results - last 24 hr 06/10/18 06/11/18 06/11/18 21:19 12:48 16:52 WBC RBC Hgb Hct MCV MCH MCHC RDW Plt Count MPV Immature Gran % Seg Neutrophils % Lymphocytes % Monocytes % Eosinophils % Basophils % Neutrophils # Lymphocytes # Monocytes # Eosinophils # Basophils # PT INR Sodium Potassium Chloride Carbon Dioxide BUN Creatinine Est GFR ( Amer) Est GFR (Non-Af Amer) BUN/Creatinine Ratio Glucose POC Glucose 138 H 123 H 123 H Calculated Osmolality Calcium Magnesium 06/12/18 06/12/18 06/12/18 05:06 05:06 05:06 WBC 14.7 H RBC 3.31 L Hgb 10.9 L Hct 31.8 L MCV 96.1 MCH 32.9 MCHC 34.3 RDW 13.1 Plt Count 152 MPV 10.3 Immature Gran % 1.7 Seg Neutrophils % 85.5 Lymphocytes % 6.2 Monocytes % 6.0 Eosinophils % 0.3 Basophils % 0.3 Neutrophils # 12.6 H Lymphocytes # 0.9 Monocytes # 0.9 Eosinophils # 0.0 Basophils # 0.0 PT 16.9 H INR 1.5 Sodium 130 L Potassium 3.5 Chloride 99 Carbon Dioxide 22 L BUN 30 H Creatinine 1.46 H Est GFR ( Amer) 42 L Est GFR (Non-Af Amer) 35 L BUN/Creatinine Ratio 21 Glucose 106 H POC Glucose Calculated Osmolality 277 L Calcium 7.4 L Magnesium 1.7 Cultures: Cultures 06/10/18 20:22 Wound Culture - Preliminary Buttock No growth. 06/10/18 12:52 Blood Culture - Preliminary Peripheral Venipuncture Culture is incubating and being continuously monitored for growth. Final report to follow. 06/10/18 12:52 Blood Culture - Preliminary Peripheral Venipuncture Culture is incubating and being continuously monitored for growth. Final report to follow. - Impressions Impressions Abdomen/Pelvis CT 06/10/18 13:56 IMPRESSION: Subcutaneous soft tissue stranding and gas along the right aspect of the gluteal cleft. Findings may be iatrogenic if patient has had recent incision and drainage; otherwise, findings are worrisome for necrotizing cellulitis. No drainable focal abscess. Mildly nodular hepatic contour, which appears new since 04/01/2014. Correlate with clinical evidence of cirrhosis. D/ / 06/10/2018 16:48:49 Valente Acevedo MD / [facility] Interpreting Provider: Valente Acevedo MD Echocardiogram 06/11/18 12:15 Impressions: LVEF 65-70%. Normal LV chamber size and systolic function. Mild concentric left ventricular hypertrophy. Indeterminate diastolic function. Normal right ventricular structure and function. Mildly dilated left atrium. Mildly dilated right atrium. Severe mitral posterior leaflet calcification without stenosis. Mild tricuspid regurgitation. Severe pulmonary hypertension. Left Ventricular Wall Motion: Rest Echo Findings All wall segments showed normal motion. Findings: Study Quality * Technically adequate exam. ECG Findings * Atrial fibrillation. Left Ventricle * LVEF 65-70%. * Normal LV chamber size and systolic function. * Mild concentric left ventricular hypertrophy. * Indeterminate diastolic function. Right Ventricle * Normal right ventricular structure and function. Left Atrium * Mildly dilated left atrium. Right Atrium * Mildly dilated right atrium. Interatrial Septum * Interatrial septum not well evaluated. Aortic Valve * Trileaflet aortic valve with normal function. * No aortic regurgitation. * No aortic stenosis. Mitral Valve * Severe posterior leaflet calcification. * Moderate mitral annulus calcification. * Trace mitral regurgitation. * No mitral stenosis. Tricuspid Valve * Normal tricuspid valve structure. * No tricuspid stenosis. * Mild tricuspid regurgitation. * Estimated RVSP is 71 mmHg. * Estimated RA pressure is 10 mmHg. * Severe pulmonary hypertension. Pulmonic Valve * Pulmonic valve is not well visualized. * No pulmonic stenosis. * Trace pulmonic regurgitation. Aorta * Normally sized aortic root. Pericardium * The pericardium appears normal. IVC * Normal IVC dimensions and inspiratory collapse. Exam - Constitutional Vitals: Temp Pulse Resp BP Pulse Ox 98.4 F 77 16 90/56 94 06/12/18 10:56 06/12/18 10:56 06/12/18 10:56 06/12/18 10:56 06/12/18 10:56 General appearance: cooperative, morbidly obese, no acute distress - Head Head exam: Present: atraumatic, normal inspection, normocephalic - Eye Eye exam: Present: EOMI, normal appearance, PERRL Pupils: Present: normal accommodation - ENT ENT exam: Present: mucous membranes moist - Neck Neck exam: Present: normal inspection - Respiratory Respiratory exam: Present: CTAB. Absent: rales, respiratory distress, rhonchi, wheezes - Cardiovascular Cardiovascular exam: Present: irregular rhythm. Absent: tachycardia - GI/Abdominal GI/Abdominal exam: Present: distended, normal bowel sounds, soft. Absent: tenderness - Rectal Additional comments: Right buttock dressing is clean, dry, and intact. - Extremities Exam Extremities exam: Present: normal inspection. Absent: joint swelling, pedal edema, tenderness - Back Exam Back exam: Present: normal inspection - Neurological Exam Neurological exam: Present: alert, oriented X3, no focal deficits - Psychiatric Psychiatric exam: Present: normal affect, normal mood - Skin Skin exam: Present: dry, intact, normal color, warm Consult Discharge Plan - Plan Referrals: Shravan Hartmann MD [Primary Care Provider] - - Attending Attestation I examined this patient and my medical decision-making was reviewed with the Resident Physician. I agree with the documented findings, disposition and treatment plan as described except to the extent set forth below.
--- NOTE | 2018-06-12 11:49 | General Surgery Progress Note ---
<Erick Haro S - Last Filed: 06/12/18 17:31> Date of Encounter: 06/12/18 - Assessment and Plan (1) Abscess of right buttock Current Visit: Yes Status: Acute CT (06/10) concerning for necrotizing cellulitis WBC improving 20.6 > 14.7 today, continue to monitor Dr. Reed performed incision and drainage in ED on 06/10, found necrotic tissue Will hold off on surgical exploration for now May resume heparin drip Patient on zosyn and vancomycin Percocet for moderate pain and SL morphine for severe pain Zofran for nausea Protonix for GI prophylaxis IVF 125 ml/hr Aerobic and anaerobic wound cultures Cardiac and diabetic diet Patient noted to have pulm HTN on previous echo (2014) Cardiology consulted for surgical clearance Echo (06/11) showed severe pulm HTN with preserved EF Nuclear stress test (06/11) showed no ischemia with 66% EF Nuclear stress test today Subjective Patient reports: no new complaints, feels better, pain is less Narrative: Patient doing well this morning. She denies gluteal pain, nausea, vomiting, fevers/chill, CP. Objective Vital Signs - Last 8 Hours Temp Pulse Resp BP Pulse Ox 06/12/18 10:56 98.4 F 77 16 90/56 94 06/12/18 06:59 97.6 F 73 18 85/52 97 Intake and Output 06/11/18 06/12/18 06/12/18 23:59 07:59 15:59 Intake Total 400 / 400 150 / 150 1252 / 1252 Output Total 0 / 0 0 / 0 Balance 400 / 400 150 / 150 1252 / 1252 Intake: IV Fluids 400 / 400 150 / 150 1252 / 1252 0.9 % Sodium Chloride 1,000 ML 1000 / 1000 @ 125 mls/hr IVC .Q8H [facility] Rx#: [id number] Cleocin Premix 900 MG/50 ML 900 50 / 50 50 / 50 50 / 50 mg In 50 ml @ 50 mls/hr IVPB Q8HR [facility] Rx#:[id number] Magnesium Sulfate 1 GM In 0.9 % 102 / 102 Sodium Chloride 100 ML @ 100 mls/hr IVPB ONCE ONE Rx#: [id number] Zosyn 3.375 GM In 0.9 % Sodium 100 / 100 100 / 100 100 / 100 Chloride (Mini-Bag +) 100 ML @ 25 mls/hr IVPB Q8HR [facility] Rx#: [id number] Vancocin 1,250 MG In 0.9 % 250 / 250 Sodium Chloride 250 ML @ 166.67 mls/hr IVPB Q24H [facility] Rx#: [id number] Oral 0 / 0 0 / 0 0 / 0 Output: Urine 0 / 0 0 / 0 Other: Percent of Meal Consumed 10% # Voids 1 1 # Bowel Movements 0 Weight 101.9 kg Blood Glucose* 123 90 105 Patient Weight 06/12/18 23:59 Weight 101.9 kg - General physical appearance well developed, well nourished - Respiratory normal expansion, normal respiratory effort - Cardiovascular Cardiovascular exam: Present: RRR - Abdomen Abdomen: Present: bowel sounds present, soft, non tender - Integumentary other (right gluteal incision site improved from yesterday with decreasing erythema and induration, not actively draining) - Psychiatric oriented to time, oriented to person, oriented to place - Labs 06/12/18 05:06 06/12/18 05:06 Diabetes panel 06/12/18 Range/Units 05:06 Sodium 130 L (136-145) mEq/L Potassium 3.5 (3.5-5.1) mEq/L Chloride 99 (98-107) mEq/L Carbon Dioxide 22 L (23-29) mEq/L BUN 30 H (8-23) mg/dL Creatinine 1.46 H (0.60-1.20) mg/dL Glucose 106 H (70-105) mg/dL Calcium 7.4 L (8.6-10.3) mg/dL Calcium panel 06/12/18 Range/Units 05:06 Calcium 7.4 L (8.6-10.3) mg/dL Pituitary panel 06/12/18 Range/Units 05:06 Sodium 130 L (136-145) mEq/L Potassium 3.5 (3.5-5.1) mEq/L Chloride 99 (98-107) mEq/L Carbon Dioxide 22 L (23-29) mEq/L BUN 30 H (8-23) mg/dL Creatinine 1.46 H (0.60-1.20) mg/dL Glucose 106 H (70-105) mg/dL Calcium 7.4 L (8.6-10.3) mg/dL Adrenal panel 06/12/18 Range/Units 05:06 Sodium 130 L (136-145) mEq/L Potassium 3.5 (3.5-5.1) mEq/L Chloride 99 (98-107) mEq/L Carbon Dioxide 22 L (23-29) mEq/L BUN 30 H (8-23) mg/dL Creatinine 1.46 H (0.60-1.20) mg/dL Glucose 106 H (70-105) mg/dL Calcium 7.4 L (8.6-10.3) mg/dL Consult Discharge Plan - Plan Referrals: Shravan Hartmann MD [Primary Care Provider] - <Zack Reed - Last Filed: 06/13/18 06:27> Date of Encounter: 06/12/18 Time of Encounter: 14:42 Objective Vital Signs - Last 8 Hours Temp Pulse Resp BP Pulse Ox 06/12/18 10:56 98.4 F 77 16 90/56 94 06/12/18 06:59 97.6 F 73 18 85/52 97 Intake and Output 06/11/18 06/12/18 06/12/18 23:59 07:59 15:59 Intake Total 400 / 400 150 / 150 1252 / 1252 Output Total 0 / 0 0 / 0 Balance 400 / 400 150 / 150 1252 / 1252 Intake: IV Fluids 400 / 400 150 / 150 1252 / 1252 0.9 % Sodium Chloride 1,000 ML 1000 / 1000 @ 125 mls/hr IVC .Q8H [facility] Rx#: [id number] Cleocin Premix 900 MG/50 ML 900 50 / 50 50 / 50 50 / 50 mg In 50 ml @ 50 mls/hr IVPB Q8HR [facility] Rx#:[id number] Magnesium Sulfate 1 GM In 0.9 % 102 / 102 Sodium Chloride 100 ML @ 100 mls/hr IVPB ONCE ONE Rx#: [id number] Zosyn 3.375 GM In 0.9 % Sodium 100 / 100 100 / 100 100 / 100 Chloride (Mini-Bag +) 100 ML @ 25 mls/hr IVPB Q8HR [facility] Rx#: [id number] Vancocin 1,250 MG In 0.9 % 250 / 250 Sodium Chloride 250 ML @ 166.67 mls/hr IVPB Q24H [facility] Rx#: [id number] Oral 0 / 0 0 / 0 0 / 0 Output: Urine 0 / 0 0 / 0 Other: Percent of Meal Consumed 10% # Voids 1 1 # Bowel Movements 0 Weight 101.9 kg Blood Glucose* 123 90 105 Patient Weight 06/12/18 23:59 Weight 101.9 kg - Labs 06/12/18 19:12 06/12/18 05:06 Diabetes panel 06/12/18 Range/Units 05:06 Sodium 130 L (136-145) mEq/L Potassium 3.5 (3.5-5.1) mEq/L Chloride 99 (98-107) mEq/L Carbon Dioxide 22 L (23-29) mEq/L BUN 30 H (8-23) mg/dL Creatinine 1.46 H (0.60-1.20) mg/dL Glucose 106 H (70-105) mg/dL Calcium 7.4 L (8.6-10.3) mg/dL Calcium panel 06/12/18 Range/Units 05:06 Calcium 7.4 L (8.6-10.3) mg/dL Pituitary panel 06/12/18 Range/Units 05:06 Sodium 130 L (136-145) mEq/L Potassium 3.5 (3.5-5.1) mEq/L Chloride 99 (98-107) mEq/L Carbon Dioxide 22 L (23-29) mEq/L BUN 30 H (8-23) mg/dL Creatinine 1.46 H (0.60-1.20) mg/dL Glucose 106 H (70-105) mg/dL Calcium 7.4 L (8.6-10.3) mg/dL Adrenal panel 06/12/18 Range/Units 05:06 Sodium 130 L (136-145) mEq/L Potassium 3.5 (3.5-5.1) mEq/L Chloride 99 (98-107) mEq/L Carbon Dioxide 22 L (23-29) mEq/L BUN 30 H (8-23) mg/dL Creatinine 1.46 H (0.60-1.20) mg/dL Glucose 106 H (70-105) mg/dL Calcium 7.4 L (8.6-10.3) mg/dL - Attending Attestation I examined this patient and my medical decision-making was reviewed with the Resident Physician. I agree with the documented findings, disposition and treatment plan as described except to the extent set forth below. Review the above assessment and evaluation with the resident. Patient states that she feels better. No elevated temperatures and vital signs remained stable. Redness appears to be slightly faded but still present. Mild drainage noted on the 4 x 4 gauze. Continue with IV antibiotics for now and will continue with dressing changes. Will continue to observe for now.
--- NOTE | 2018-06-12 14:13 | Cardiology Progress Note ---
Date of Encounter: 06/12/18 Time of Encounter: 13:30 Assessment and Plan (1) Preoperative cardiovascular examination Current Visit: Yes Status: Acute Per cardiology: -Patient with poor functional status, able to perform less than 4 METs. -TTE with LVEF preserved, no wall motion abnormalities noted. Severe pulmonary hypertension. -ECG with a.fib, HR 74. NO acute ischemic changes noted. -Stress test negative for ischemia or infacrt. -Discussed and reviewed with , patient is at acceptable risk for surgery if needed. -Cardiology will sign off and will follow in outpatient setting. Follow up set. (2) Atrial fibrillation Current Visit: Yes Status: Acute Per cardiology: -Currently rate controlled. Continue Toprol and IV heparin to therapeutic PTT Qualifiers: Atrial fibrillation type: persistent Qualified Code(s): I48.1 - Persistent atrial fibrillation (3) Pulmonary hypertension Current Visit: Yes Status: Acute Per cardiology: -Transthoracic echocardiogram 03/2015 showed mod to severe pulmonary hypertension. -TTE with severe pulmonary hypertension. -On bb, dikuertic. -of note, reports non-compliance with CPAP> -Consider repeat sleep study in outpatient setting. Discussion w patient/family: The assessment and plan as outlined above was discussed with the patient who expressed understanding and agreement. All questions were answered. Thank you for involving us in the care of your patient. Please call with any questions. Discussed and reviewed with Subjective Principal diagnosis: abscess Interval history: Patient denies chest pain, shortness of breath. Objective Vital Signs, Last 4 Hours Temp Pulse Resp BP Pulse Ox 06/12/18 10:56 98.4 F 77 16 90/56 94 General: Conversant, No Apparent Distress HEENT: Atraumatic, Normocephaly, Mucus Membranes Moist Neck: No JVD, Normal carotid pulses Cardiac: Normal S1 and S2, No Murmur, Other (Irregularly irregular) Lungs: Normal Breath Sounds, No Wheeze, Rales, Rhonchi Neuro: Alert and responsive, No focal deficits noted Abdomen: Soft, Non-Tender Skin: No rashes noted on visualized skin Musculoskeletal: No Chest Wall Tenderness Extremities: No Clubbing, No Cyanosis, Normal Pulses, Other (Mild bilateral pedal edema noted, non-pitting. ) Results 06/12/18 05:06 06/12/18 05:06 Lab Results Impressions Abdomen/Pelvis CT 06/10/18 13:56 IMPRESSION: Subcutaneous soft tissue stranding and gas along the right aspect of the gluteal cleft. Findings may be iatrogenic if patient has had recent incision and drainage; otherwise, findings are worrisome for necrotizing cellulitis. No drainable focal abscess. Mildly nodular hepatic contour, which appears new since 04/01/2014. Correlate with clinical evidence of cirrhosis. D/ / 06/10/2018 16:48:49 Valente Acevedo MD / earnold Interpreting Provider: Valente Acevedo MD Echocardiogram 06/11/18 12:15 Impressions: LVEF 65-70%. Normal LV chamber size and systolic function. Mild concentric left ventricular hypertrophy. Indeterminate diastolic function. Normal right ventricular structure and function. Mildly dilated left atrium. Mildly dilated right atrium. Severe mitral posterior leaflet calcification without stenosis. Mild tricuspid regurgitation. Severe pulmonary hypertension. Left Ventricular Wall Motion: Rest Echo Findings All wall segments showed normal motion. Findings: Study Quality * Technically adequate exam. ECG Findings * Atrial fibrillation. Left Ventricle * LVEF 65-70%. * Normal LV chamber size and systolic function. * Mild concentric left ventricular hypertrophy. * Indeterminate diastolic function. Right Ventricle * Normal right ventricular structure and function. Left Atrium * Mildly dilated left atrium. Right Atrium * Mildly dilated right atrium. Interatrial Septum * Interatrial septum not well evaluated. Aortic Valve * Trileaflet aortic valve with normal function. * No aortic regurgitation. * No aortic stenosis. Mitral Valve * Severe posterior leaflet calcification. * Moderate mitral annulus calcification. * Trace mitral regurgitation. * No mitral stenosis. Tricuspid Valve * Normal tricuspid valve structure. * No tricuspid stenosis. * Mild tricuspid regurgitation. * Estimated RVSP is 71 mmHg. * Estimated RA pressure is 10 mmHg. * Severe pulmonary hypertension. Pulmonic Valve * Pulmonic valve is not well visualized. * No pulmonic stenosis. * Trace pulmonic regurgitation. Aorta * Normally sized aortic root. Pericardium * The pericardium appears normal. IVC * Normal IVC dimensions and inspiratory collapse. Active Medications Acetaminophen (Tylenol) 650 mg PO Q6HR PRN PRN Reason: mild to moderate pain Stop: 12/11/18 03:29 Atorvastatin Calcium (Lipitor) 20 mg PO QPM [facility] Stop: 12/11/18 18:01 Last Admin: 06/11/18 19:04 Dose: 20 mg Dextrose/Water (Dextrose 50% (Syg)) 25 ml IVP AD PRN PRN Reason: Hypoglycemia Stop: 12/10/18 19:44 Glucagon (Glucagen) 1 mg IM ONCE PRN PRN Reason: Hypoglycemia Stop: 12/10/18 19:44 Glucose (Gluctose) 15 gm PO ONCE PRN PRN Reason: Hypoglycemia Stop: 12/10/18 19:44 Glucose (Gluctose) 30 gm PO ONCE PRN PRN Reason: Hypoglycemia Stop: 12/10/18 19:44 Heparin Sodium (Porcine) (Heparin) 5,000 unit SQ Q8HCO [facility] Stop: 12/11/18 14:01 Last Admin: 06/12/18 06:11 Dose: 5,000 unit Piperacillin Sod/Tazobactam (Sod 3.375 gm/ Sodium Chloride) 100 mls @ 25 mls/hr IVPB Q8HR [facility] Stop: 12/11/18 00:01 Last Infusion: 06/12/18 10:00 Dose: Infused Vancomycin HCl 1,250 mg/ (Sodium Chloride) 250 mls @ 166.67 mls/hr IVPB Q24H [facility] Stop: 12/11/18 18:01 Last Infusion: 06/11/18 19:30 Dose: Infused Dextrose (Dextrose 5%) 1,000 mls @ 100 mls/hr IVC .Q10H PRN PRN Reason: HYPOGLYCEMIA Stop: 12/10/18 19:44 Sodium Chloride (0.9 % Sodium Chloride) 1,000 mls @ 125 mls/hr IVC .Q8H [facility] Stop: 12/12/18 00:02 Last Admin: 06/12/18 08:57 Dose: 125 mls/hr Insulin Human Lispro (Humalog) 0 units SQ HS [facility]; Protocol Stop: 12/12/18 21:01 Insulin Human Lispro (Humalog) 0 units SQ TIDAC [facility]; Protocol Stop: 12/12/18 16:31 Metoprolol Succinate (Toprol Xl) 50 mg PO DAILY [facility] Stop: 12/11/18 09:01 Last Admin: 06/12/18 08:00 Dose: Not Given Morphine Sulfate (Roxanol Oral Conc) 10 mg SL Q4HR PRN PRN Reason: Severe Pain Stop: 12/10/18 17:47 Multivitamins/Calcium (Thera M Plus) 1 tab PO DAILY [facility] Stop: 12/11/18 09:01 Last Admin: 06/12/18 08:00 Dose: Not Given Naloxone HCl (Narcan) 0.4 mg IVP Q2MIN PRN PRN Reason: SEE COMMENTS Stop: 12/10/18 17:32 Ondansetron HCl (Zofran) 4 mg IVP Q6HR PRN; Protocol PRN Reason: Nausea Stop: 12/10/18 17:41 Last Admin: 06/12/18 08:57 Dose: 4 mg Oxycodone/Acetaminophen (Percocet 5/325) 1 each PO Q6HR PRN PRN Reason: Moderate Pain Stop: 12/10/18 17:46 Last Admin: 06/11/18 16:54 Dose: 1 each Pantoprazole Sodium (Protonix) 40 mg IVP DAILY [facility] Stop: 12/10/18 18:31 Last Admin: 06/12/18 08:57 Dose: 40 mg Laboratory Tests 06/11/18 06/12/18 06/12/18 04:31 05:06 05:06 WBC 14.7 H Hgb 10.9 L Creatinine 0.89 1.46 H - Imaging and Cardiology Chest Xray: report reviewed Stress Test: report reviewed Echo: report reviewed - EKG Interpretation EKG results cardiology: other (Telemetry reviewed with average HR previous 12 hours noted to be 72, a.fib. PVCs noted.) Consult Discharge Plan - Plan Referrals: Shravan Hartmann MD [Primary Care Provider] -
--- NOTE | 2018-06-12 17:48 | Electrocardiograph Report ---
[place] [facility] Vocab Test Date: 2018-06-10 Pat Name: Shellie Carpenter Department: [id number] Room: 3A43 Gender: F [employer] Intern: : 1945 Requested By: Carmine Hdez Order Number: [id number] Reading MD: Williams Fofana Measurements Intervals [place] Rate: 100 P: NE: QRS: 98 QRSD: 91 T: -21 QT: 346 QTc: 402 Interpretive Statements Atrial fibrillation Borderline right axis deviation Borderline repolarization abnormality Electronically Signed On 06-12-2018 17:46:42 EST by Williams Fofana
[2018-06-12] MEDS ORDERED: *HR* Rivaroxaban 10 MG TABLET PO SCH (18:00)
[2018-06-12 19:25] LABS: Hematocrit 35.2 % (35.3-44.9); Hemoglobin 12.2 g/dL (11.5-15.4); Mean Corpuscular HGB Conc 34.7 g/dL (31.6-35.5); Mean Corpuscular Hemoglobin 33.1 pg (28.0-33.3); Mean Corpuscular Volume 95.4 fL (83.0-100.0); Mean Platelet Volume 10.1 fL (9.4-12.4); Platelet Count 190 K/mcL (140-400); Red Blood Count 3.69 M/mcL (3.82-4.97); Red Cell Distribution Width 13.2 % (11.5-14.5)
[2018-06-13] MEDS: Piperacillin/Tazobactam 3.375 GM in 0.9 % Sodium Chloride Mini Bag 100 ML IVPB SCH ×4 (00:03→23:42)
[2018-06-13] MEDS: 0.9 % Sodium Chloride 1,000 ML IVC SCH (02:33)
[2018-06-13] MEDS: Acetaminophen 325 MG TABLET PO PRN (04:56)
[2018-06-13 06:34] LABS: Basophils % 0.3 %; Eosinophils # 0.1 K/mcL (0.0-0.6); Eosinophils % 0.3 %; Hematocrit 31.7 % (35.3-44.9); Hemoglobin 10.8 g/dL (11.5-15.4); Immature Granulocytes % 1.9 % (0-4); Lymphocytes % 6.9 %; Mean Corpuscular HGB Conc 34.1 g/dL (31.6-35.5); Mean Corpuscular Hemoglobin 32.3 pg (28.0-33.3); Mean Corpuscular Volume 94.9 fL (83.0-100.0); Mean Platelet Volume 10.3 fL (9.4-12.4); Monocytes # 0.9 K/mcL (0.0-1.3); Monocytes % 5.8 %; Neutrophils # 12.7 K/mcL (1.6-8.9); Platelet Count 173 K/mcL (140-400); Red Blood Count 3.34 M/mcL (3.82-4.97); Red Cell Distribution Width 13.5 % (11.5-14.5); Segmented Neutrophils % 84.8 %
[2018-06-13 06:53] LABS: Calcium 7.5 mg/dL (8.6-10.3)
[2018-06-13] MEDS: Insulin LISPRO 300 UNITS/3 ML VIAL SQ SCH ×4 (07:46→21:00)
--- NOTE | 2018-06-13 09:00 | General Surgery Progress Note ---
<Erick Haro S - Last Filed: 06/13/18 17:31> Date of Encounter: 06/13/18 Time of Encounter: 09:15 - Assessment and Plan (1) Abscess of right buttock Current Visit: Yes Status: Acute CT (06/10) concerning for necrotizing cellulitis WBC 20.6 > 14.7 > 20.1 > 15 today, continue to monitor Dr. Reed performed incision and drainage in ED on 06/10, found necrotic tissue Patient on zosyn and vancomycin Percocet for moderate pain and SL morphine for severe pain Zofran for nausea Protonix for GI prophylaxis IVF 125 ml/hr Aerobic and anaerobic wound cultures Cardiac and diabetic diet Patient noted to have pulm HTN on previous echo (2014) Cardiology consulted for surgical clearance Echo (06/11) showed severe pulm HTN with preserved EF Nuclear stress test (06/11) showed no ischemia with 66% EF With changes in WBC count, will plan for surgery tomorrow for abscess exploration Holding xarelto NPO at midnight INR 3 today, recheck INR in morning Subjective Patient reports: no new complaints, feels better, pain is less, tolerating a regular diet Narrative: Patient doing well this morning. Pain is well controlled. Tolerating her diet. She denies nausea, vomiting, CP, SOB, fevers/chills, changes in bowel/bladder habits. Objective Vital Signs - Last 8 Hours Temp Pulse Resp BP Pulse Ox 06/13/18 07:14 97.9 F 82 18 109/48 97 Intake and Output 06/12/18 06/13/18 06/13/18 23:59 07:59 15:59 Intake Total 1350 / 1350 1250 / 1250 Output Total 0 / 0 200 / 200 Balance 1350 / 1350 1050 / 1050 Intake: IV Fluids 1350 / 1350 1100 / 1100 0.9 % Sodium Chloride 1,000 ML 1000 / 1000 1000 / 1000 @ 125 mls/hr IVC .Q8H [facility] Rx#: [id number] Zosyn 3.375 GM In 0.9 % Sodium 100 / 100 100 / 100 Chloride (Mini-Bag +) 100 ML @ 25 mls/hr IVPB Q8HR [facility] Rx#: [id number] Vancocin 1,250 MG In 0.9 % 250 / 250 Sodium Chloride 250 ML @ 166.67 mls/hr IVPB Q24H [facility] Rx#: [id number] Oral 0 / 0 150 / 150 Output: Urine 0 / 0 200 / 200 Other: Blood Glucose* 144 111 - General physical appearance well developed - Respiratory normal expansion, normal respiratory effort - Cardiovascular Cardiovascular exam: Present: RRR - Abdomen Abdomen: Present: bowel sounds present, soft, non tender - Integumentary other (right gluteal abscess - erythema is improving, packed with iodoform) - Psychiatric oriented to time, oriented to person, oriented to place - Labs 06/13/18 05:48 06/13/18 05:48 Diabetes panel 06/13/18 Range/Units 05:48 Sodium 128 L (136-145) mEq/L Potassium 4.0 (3.5-5.1) mEq/L Chloride 101 (98-107) mEq/L Carbon Dioxide 19 L (23-29) mEq/L BUN 34 H (8-23) mg/dL Creatinine 1.28 H (0.60-1.20) mg/dL Glucose 124 H (70-105) mg/dL Calcium 7.5 L (8.6-10.3) mg/dL Calcium panel 06/13/18 Range/Units 05:48 Calcium 7.5 L (8.6-10.3) mg/dL Pituitary panel 06/13/18 Range/Units 05:48 Sodium 128 L (136-145) mEq/L Potassium 4.0 (3.5-5.1) mEq/L Chloride 101 (98-107) mEq/L Carbon Dioxide 19 L (23-29) mEq/L BUN 34 H (8-23) mg/dL Creatinine 1.28 H (0.60-1.20) mg/dL Glucose 124 H (70-105) mg/dL Calcium 7.5 L (8.6-10.3) mg/dL Adrenal panel 06/13/18 Range/Units 05:48 Sodium 128 L (136-145) mEq/L Potassium 4.0 (3.5-5.1) mEq/L Chloride 101 (98-107) mEq/L Carbon Dioxide 19 L (23-29) mEq/L BUN 34 H (8-23) mg/dL Creatinine 1.28 H (0.60-1.20) mg/dL Glucose 124 H (70-105) mg/dL Calcium 7.5 L (8.6-10.3) mg/dL Consult Discharge Plan - Plan Referrals: Shravan Hartmann MD [Primary Care Provider] - <Zack Reed M - Last Filed: 06/14/18 06:14> Date of Encounter: 06/13/18 Objective Vital Signs - Last 8 Hours Temp Pulse Resp BP Pulse Ox 06/14/18 04:20 98.4 F 95 13 93/58 96 Intake and Output 06/13/18 06/13/18 06/14/18 15:59 23:59 07:59 Intake Total 100 / 100 580 / 580 Balance 100 / 100 580 / 580 Intake: IV Fluids 100 / 100 100 / 100 Zosyn 3.375 GM In 0.9 % Sodium 100 / 100 100 / 100 Chloride (Mini-Bag +) 100 ML @ 25 mls/hr IVPB Q8HR [facility] Rx#: [id number] Oral 0 / 0 480 / 480 Other: Meal Lunch Dinner Percent of Meal Consumed 50% 75% Stool Size Moderate Moderate Stool Consistency soft soft Stool Color Brown Brown # Voids 1 3 # Bowel Movements 1 Weight 110 kg Blood Glucose* 130 159 128 Patient Weight 06/14/18 23:59 Weight 110 kg - Labs 06/14/18 03:56 06/14/18 03:56 Diabetes panel 06/13/18 06/14/18 Range/Units 05:48 03:56 Sodium 128 L 129 L (136-145) mEq/L Potassium 4.0 3.7 (3.5-5.1) mEq/L Chloride 101 102 (98-107) mEq/L Carbon Dioxide 19 L 19 L (23-29) mEq/L BUN 34 H 30 H (8-23) mg/dL Creatinine 1.28 H 0.96 (0.60-1.20) mg/dL Glucose 124 H 142 H (70-105) mg/dL Calcium 7.5 L 7.8 L (8.6-10.3) mg/dL Calcium panel 06/13/18 06/14/18 Range/Units 05:48 03:56 Calcium 7.5 L 7.8 L (8.6-10.3) mg/dL Pituitary panel 06/13/18 06/14/18 Range/Units 05:48 03:56 Sodium 128 L 129 L (136-145) mEq/L Potassium 4.0 3.7 (3.5-5.1) mEq/L Chloride 101 102 (98-107) mEq/L Carbon Dioxide 19 L 19 L (23-29) mEq/L BUN 34 H 30 H (8-23) mg/dL Creatinine 1.28 H 0.96 (0.60-1.20) mg/dL Glucose 124 H 142 H (70-105) mg/dL Calcium 7.5 L 7.8 L (8.6-10.3) mg/dL Adrenal panel 06/13/18 06/14/18 Range/Units 05:48 03:56 Sodium 128 L 129 L (136-145) mEq/L Potassium 4.0 3.7 (3.5-5.1) mEq/L Chloride 101 102 (98-107) mEq/L Carbon Dioxide 19 L 19 L (23-29) mEq/L BUN 34 H 30 H (8-23) mg/dL Creatinine 1.28 H 0.96 (0.60-1.20) mg/dL Glucose 124 H 142 H (70-105) mg/dL Calcium 7.5 L 7.8 L (8.6-10.3) mg/dL - Attending Attestation I examined this patient and my medical decision-making was reviewed with the Resident Physician. I agree with the documented findings, disposition and treatment plan as described except to the extent set forth below. Review the above assessment and evaluation. And white count yesterday evening was in 20,000 range and this morning is 15,000 range. Erythema has plateaued. Based upon these findings I think the best course we did go ahead and perform an exploration in the next 24 hours. Will have the hospitalist hold the patient's antiplatelet/anticoagulant therapy. Discussed with the patient and she agrees to the above plan.
[2018-06-13] MEDS: Multivit/Ca/Min/Fe/FA 1 TAB TABLET PO SCH (09:11)
[2018-06-13] MEDS: Pantoprazole 40 MG VIAL IVP SCH (09:11)
--- NOTE | 2018-06-13 10:27 | Infectious Disease Progress No ---
Date of Encounter: 06/13/18 Time of Encounter: 10:25 - Assessment and Plan (1) Sepsis Current Visit: Yes Status: Acute The patient had 3 sepsis criteria on admission. Likely secondary to necrotizing cellulitis and abscess. Improved clinically. White blood cell count is improved. Tachycardia and tachypnea have resolved. Blood cultures drawn 06/10/18 are no growth 2 sets. Recommendations: - Await blood cultures to finalize. - Wound care per the surgery team. - Surgery team planning for formal debridement 06/14/18. Please get new cultures including AFB and fungal cultures. Discussed with the surgery team. - Continue Vancomycin IV. Pharmacy to dose. Goal trough ~15. - Continue Zosyn 3.375 grams IV Q8H. - Duration of treatment depends on the clinical picture. - Monitor renal function and for drug toxicity and dose-adjust antibiotics. Qualifiers: Sepsis type: sepsis due to unspecified organism Qualified Code(s): A41.9 - Sepsis, unspecified organism (2) Necrotizing cellulitis Current Visit: Yes Status: Acute Location: Right gluteal cleft. Etiology: Unclear. CT of the abdomen and pelvis showed subcutaneous straining and gas at the right aspect of the gluteal cleft concerning for necrotizing cellulitis. Gen. surgery consulted. Performed a bedside I&D with no pus noted, but there was necrosis of the wound bed. Wound culture is negative. Surgery is planning for formal debridement 06/14/18. Will request new cultures. Antibiotic recommendations as above. Wound care per the general surgery team. (3) Abscess of right buttock Current Visit: Yes Status: Acute Location: Right buttock. Causative organism unclear. Status post bedside I&D 06/10/[address] Reed. Wound culture is negative. Gen. surgery team is planning for formal debridement 06/14/18. (4) Chronic a-fib Current Visit: Yes Status: Acute (5) (HFpEF) heart failure with preserved ejection fraction Current Visit: Yes Status: Acute (6) Morbid obesity Current Visit: Yes Status: Acute (7) Cirrhosis Current Visit: Yes Status: Suspected CT of the abdomen and pelvis showed mildly nodular hepatic contour concerning for cirrhosis. MELD scare 23. Recommend GI to evaluate. Qualifiers: Hepatic cirrhosis type: unspecified hepatic cirrhosis Ascites presence: without ascites Qualified Code(s): K74.60 - Unspecified cirrhosis of liver - Subjective Interval history: Patient seen and examined. No acute events noted overnight. Denies any fevers or chills or rigors. Denies any chest pain, cough, but she does report some mild shortness of breath. She denies any nausea, vomiting, diarrhea, or constipation. She denies abdominal pain, urinary complaints, or appetite changes. She denies any pain at the site of the cellulitis/abscess, but states it is uncomfortable. She denies any oral thrush or new skin lesions. Infect Dis PN-Objective Data - Labs CBC & Chem 7: 06/13/18 05:48 06/13/18 05:48 Labs: Laboratory Results - last 24 hr 06/12/18 06/12/18 06/12/18 11:16 16:48 17:07 WBC RBC Hgb Hct MCV MCH MCHC RDW Plt Count MPV Immature Gran % Seg Neutrophils % Lymphocytes % Monocytes % Eosinophils % Basophils % Neutrophils # Lymphocytes # Monocytes # Eosinophils # Basophils # Sodium Potassium Chloride Carbon Dioxide BUN Creatinine Est GFR ( Amer) Est GFR (Non-Af Amer) BUN/Creatinine Ratio Glucose POC Glucose 105 H 120 H Calculated Osmolality Calcium Vancomycin Trough 8 Blood Type Antibody Screen 06/12/18 06/12/18 06/12/18 19:12 19:12 20:28 WBC 20.1 H RBC 3.69 L Hgb 12.2 Hct 35.2 L MCV 95.4 MCH 33.1 MCHC 34.7 RDW 13.2 Plt Count 190 MPV 10.1 Immature Gran % Seg Neutrophils % Lymphocytes % Monocytes % Eosinophils % Basophils % Neutrophils # Lymphocytes # Monocytes # Eosinophils # Basophils # Sodium Potassium Chloride Carbon Dioxide BUN Creatinine Est GFR ( Amer) Est GFR (Non-Af Amer) BUN/Creatinine Ratio Glucose POC Glucose 144 H Calculated Osmolality Calcium Vancomycin Trough Blood Type O POSITIVE Antibody Screen NEGATIVE 06/13/18 06/13/18 06/13/18 05:48 05:48 07:17 WBC 15.0 H RBC 3.34 L Hgb 10.8 L Hct 31.7 L MCV 94.9 MCH 32.3 MCHC 34.1 RDW 13.5 Plt Count 173 MPV 10.3 Immature Gran % 1.9 Seg Neutrophils % 84.8 Lymphocytes % 6.9 Monocytes % 5.8 Eosinophils % 0.3 Basophils % 0.3 Neutrophils # 12.7 H Lymphocytes # 1.0 Monocytes # 0.9 Eosinophils # 0.1 Basophils # 0.0 Sodium 128 L Potassium 4.0 Chloride 101 Carbon Dioxide 19 L BUN 34 H Creatinine 1.28 H Est GFR ( Amer) 49 L Est GFR (Non-Af Amer) 41 L BUN/Creatinine Ratio 27 H Glucose 124 H POC Glucose 111 H Calculated Osmolality 275 L Calcium 7.5 L Vancomycin Trough Blood Type Antibody Screen Cultures: Cultures 06/10/18 20:22 Wound Culture - Final Buttock No growth. 06/10/18 12:52 Blood Culture - Preliminary Peripheral Venipuncture Culture is incubating and being continuously monitored for growth. Final report to follow. 06/10/18 12:52 Blood Culture - Preliminary Peripheral Venipuncture Culture is incubating and being continuously monitored for growth. Final report to follow. Exam - Constitutional Vitals: Temp Pulse Resp BP Pulse Ox 97.7 F 85 13 111/71 97 06/13/18 10:00 06/13/18 10:00 06/13/18 10:00 06/13/18 10:00 06/13/18 10:00 General appearance: cooperative, morbidly obese, no acute distress - Head Head exam: Present: atraumatic, normal inspection, normocephalic - Eye Eye exam: Present: EOMI, normal appearance, PERRL Pupils: Present: normal accommodation - ENT ENT exam: Present: mucous membranes moist - Neck Neck exam: Present: normal inspection - Respiratory Respiratory exam: Present: CTAB. Absent: rales, respiratory distress, rhonchi, wheezes - Cardiovascular Cardiovascular exam: Present: RRR, +S1, +S2 - GI/Abdominal GI/Abdominal exam: Present: distended (obese), normal bowel sounds, soft. Absent: tenderness - Rectal Additional comments: Erythema, tenderness, and fluctuance persists to the right buttock. - Extremities Exam Extremities exam: Present: normal inspection. Absent: joint swelling, pedal edema, tenderness - Neurological Exam Neurological exam: Present: alert, oriented X3, no focal deficits - Psychiatric Psychiatric exam: Present: normal affect, normal mood - Skin Skin exam: Present: dry, intact, normal color, warm Consult Discharge Plan - Plan Referrals: Shravan Hartmann MD [Primary Care Provider] - - Attending Attestation I examined this patient and my medical decision-making was reviewed with the Resident Physician. I agree with the documented findings, disposition and treatment plan as described except to the extent set forth below.
[2018-06-13 10:48] LABS: Prothrombin Time 34.4 Seconds (9.4-12.1)
--- NOTE | 2018-06-13 12:44 | Internal Med Progress Note ---
Hospitalist Progress Note - Encounter Date of Encounter: 06/13/18 Time of Encounter: 07:45 - Subjective Interval History: Patient was seen and examined at bedside. she feels as though swelling has gotten better from admission. at bedside- all questions answered Pain is controlled, tolerated PO diet she denies fever, chils, CP, SOb, cough, palpitations, N/v/D - Exam Vitals: Temp Pulse Resp BP Pulse Ox 97.7 F 85 13 111/71 97 06/13/18 10:00 06/13/18 10:00 06/13/18 10:00 06/13/18 10:00 06/13/18 10:00 Exam: General: Patient is alert, oriented, no acute distress, morbidly obese Head: atraumatic, normocephalic, Eye: normal appearance, PERRL, no scleral icterus, no conjunctival injection ENT: mucous membranes moist, normal external ear exam Neck: normal inspection, trachea midline, full ROM, no carotid bruits Chest: normal inspection, symmetric chest rise Respiratory: distant breathsounds secondary to body habitus, Bilateral breath sounds are clear without wheezing, crackles, or rhonchi. Cardiovascular: distent heart sounds secondary to body habitus, irregular s1 and s2 No clicks, rubs, gallops, or murmors. Abdomen: Bowel sounds present normoactive x-4 quadrants. Abdomen is soft, nondistended. no Epigastric tenderness. No guarding or rebound. No organomegaly noted, obese musculoskeletal: Spontaneously moving all extremities. no edema, no calf tenderness Skin: warm, dry, intact. S/p I&D erythema above the incision site- marked Neuro: Alert and oriented x4. Sensation light touch intact. Cranial nerves 2- 12 is intact. no focal deficit Psych: Patient's affect is normal - Assessment and Plan (1) Cellulitis Current Visit: Yes Status: Acute Assessment and Plan: CT abdomen and pelvis worrisome for necrotizing cellulitis Surgery was consulted in the emergency department- Dr. Reed performed bedside I&D- for OR on 06/14 On vancomycin, Zosyn clindamycin discontinued on 06/12 ESR 41 CRP 153 Lactic acid 1.5 ID on board wound cx - no growth will follow surgical cx bcx NGTD cardiology consulted for Preop clearance- they cleared the patient if needed to have surgery on 06/[address] A/p IMPRESSION: Subcutaneous soft tissue stranding and gas along the right aspect of the gluteal cleft. Findings may be iatrogenic if patient has had recent incision and drainage; otherwise, findings are worrisome for necrotizing cellulitis. No drainable focal abscess. Mildly nodular hepatic contour, which appears new since 04/01/2014. Correlate with clinical evidence of cirrhosis. (2) Sepsis Current Visit: Yes Status: Acute Assessment and Plan: secondary gluteal cellulitis / ? necrotizing cellulitis WBC count: 18.3 / HR 104 BCx NGTD Wound CX sent by surgery Surgery on board (3) Moderate to severe pulmonary hypertension Current Visit: Yes Status: Acute Assessment and Plan: seen on TTE in 2014 Moderate-severe pulmonary hypertension. Estimated RVSP is 55 mmHg. DUPily jurado Q4H is not compliant to xarelto is at high risk for DVT and PE secondary to morbid obesity and poor ambulation wells criteria 6 also most likely has GABRIEL - never had sleep study as OP continue Oxygen via NC keep sats >92% Bipap at nights off OAC as per surgery - patient is in agreement understanding risk and benefits Tte on 05/2018- Impressions: LVEF 65-70%. Normal LV chamber size and systolic function. Mild concentric left ventricular hypertrophy. Indeterminate diastolic function. Normal right ventricular structure and function. Mildly dilated left atrium. Mildly dilated right atrium. Severe mitral posterior leaflet calcification without stenosis. Mild tricuspid regurgitation. Severe pulmonary hypertension. (4) ARF (acute renal failure) Current Visit: Yes Status: Acute Assessment and Plan: most likely secondary to hypotension ( BP trended down on the early AM on 06/12- improved on 06/13) continue IVF watch for overload vancomycin - pharmacy to dose avoid nephrotoxic medications BP meds and diuretics on hold for now (5) Chronic a-fib Current Visit: Yes Status: Acute Assessment and Plan: continue metoprolol Xarelto on hold for surgery Chads vasc of 6 - off heparin drip and OAC as per surgery - patient is in agreement understanding risk and benefits (6) (HFpEF) heart failure with preserved ejection fraction Current Visit: Yes Status: Acute Assessment and Plan: Continue BB, statins, ACEI currently not in exacerbation BIPAP at nights keep saturations above 92% Echocardiogram TTE in 05/2018- Impressions: LVEF 65-70%. Normal LV chamber size and systolic function. Mild concentric left ventricular hypertrophy. Indeterminate diastolic function. Normal right ventricular structure and function. Mildly dilated left atrium. Mildly dilated right atrium. Severe mitral posterior leaflet calcification without stenosis. Mild tricuspid regurgitation. Severe pulmonary hypertension. (7) Morbid obesity Current Visit: Yes Status: Acute Assessment and Plan: BMI 42.4 Nutrition (8) Hyponatremia Current Visit: Yes Status: Acute Assessment and Plan: most likely secondary to poor oral intake - improving will continue IVF at low rate as she has TRISTIAN also held lasix and HCTZ for now as she is hyponatremic fluid restriction to 1 L (9) Hypomagnesemia Current Visit: Yes Status: Resolved Assessment and Plan: resolved (10) Hypokalemia Current Visit: Yes Status: Acute Assessment and Plan: repalced - resolved (11) DVT prophylaxis Current Visit: Yes Status: Acute Assessment and Plan: heparin SC Xarelto on hold for surgery on 06/14 - Time Spent with Patient Total time spent is greater than 50% in coordination of care (as documented) at patient's floor/unit and/or counseling patient: Internal Medicine: Result - Labs CBC & Chem 7: 06/13/18 05:48 06/13/18 05:48 Labs: Short CBC 06/12/18 06/13/18 Range/Units 19:12 05:48 WBC 20.1 H 15.0 H (4.3-11.1) K/mcL Hgb 12.2 10.8 L (11.5-15.4) g/dL Hct 35.2 L 31.7 L (35.3-44.9) % Plt Count 190 173 (140-400) K/mcL Neutrophils # 12.7 H (1.6-8.9) K/mcL BMP 06/13/18 05:48 Sodium 128 L Potassium 4.0 Chloride 101 Carbon Dioxide 19 L BUN 34 H Creatinine 1.28 H Glucose 124 H Calcium 7.5 L - ABG Interpretation ABG results: PT/INR, D-dimer PT 34.4 Seconds (9.4-12.1) H D 06/13/18 10:10 Consult Discharge Plan - Plan Referrals: Shravan Hartmann MD [Primary Care Provider] - (1) Cellulitis Qualifiers: Site of cellulitis: buttock Qualified Code(s): L03.317 - Cellulitis of buttock (2) Sepsis Qualifiers: Sepsis type: sepsis due to unspecified organism Qualified Code(s): A41.9 - Sepsis, unspecified organism (4) ARF (acute renal failure) Qualifiers: Acute renal failure type: unspecified Qualified Code(s): N17.9 - Acute kidney failure, unspecified
[2018-06-13] MEDS ORDERED: *HR* Heparin 5,000 UNIT/ML VIAL SQ SCH (14:00)
[2018-06-13] MEDS: *HR* Heparin 5,000 UNIT/ML VIAL SQ SCH ×2 (14:52→20:58)
[2018-06-14] MEDS: 0.9 % Sodium Chloride 1,000 ML IVC SCH ×2 (02:20→15:07)
[2018-06-14] MEDS: Acetaminophen 325 MG TABLET PO PRN (03:33)
[2018-06-14 04:24] LABS: Basophils # 0.1 K/mcL (0.0-0.2); Basophils % 0.5 %; Eosinophils # 0.2 K/mcL (0.0-0.6); Eosinophils % 1.1 %; Hematocrit 33.1 % (35.3-44.9); Hemoglobin 11.1 g/dL (11.5-15.4); Immature Granulocytes % 3.2 % (0-4); Lymphocytes # 1.3 K/mcL (0.6-4.6); Lymphocytes % 9.1 %; Mean Corpuscular HGB Conc 33.5 g/dL (31.6-35.5); Mean Corpuscular Hemoglobin 32.2 pg (28.0-33.3); Mean Corpuscular Volume 95.9 fL (83.0-100.0); Monocytes # 0.8 K/mcL (0.0-1.3); Monocytes % 5.5 %; Neutrophils # 11.2 K/mcL (1.6-8.9); Platelet Count 193 K/mcL (140-400); Red Blood Count 3.45 M/mcL (3.82-4.97); Red Cell Distribution Width 13.4 % (11.5-14.5); Segmented Neutrophils % 80.6 %
[2018-06-14 04:29] LABS: BUN/Creatinine Ratio 31 (6-26); Blood Urea Nitrogen 30 mg/dL (8-23); Calcium 7.8 mg/dL (8.6-10.3); Carbon Dioxide 19 mEq/L (23-29); Chloride 102 mEq/L (98-107); Glucose 142 mg/dL (70-105); Osmolality,Calculated 277 (280-300); Potassium 3.7 mEq/L (3.5-5.1); Sodium 129 mEq/L (136-145); eGFR For Non-African Americans 57 (> 60)
[2018-06-14 04:31] LABS: INR 2.1; Prothrombin Time 23.9 Seconds (9.4-12.1)
[2018-06-14] MEDS: *HR* Heparin 5,000 UNIT/ML VIAL SQ SCH (05:55)
[2018-06-14] MEDS: Insulin LISPRO 300 UNITS/3 ML VIAL SQ SCH ×4 (07:38→22:50)
[2018-06-14] MEDS: Multivit/Ca/Min/Fe/FA 1 TAB TABLET PO SCH (07:59)
[2018-06-14] MEDS: Piperacillin/Tazobactam 3.375 GM in 0.9 % Sodium Chloride Mini Bag 100 ML IVPB SCH ×2 (08:12→15:06)
[2018-06-14] MEDS: Pantoprazole 40 MG VIAL IVP SCH (08:12)
[2018-06-14] MEDS ORDERED: 0.9 % Sodium Chloride 250 ML ONE (09:14)
[2018-06-14] MEDS ORDERED: Lidocaine -MPF 2% 2 ML VIAL ONE (10:31)
[2018-06-14] MEDS ORDERED: *HR* Succinylcholine 200 MG/10 ML VIAL IVP ONE (10:31)
[2018-06-14] MEDS ORDERED: Lidocaine -MPF 4% 5 ML AMPUL ONE (10:31)
[2018-06-14] MEDS ORDERED: Ondansetron 4 MG/2 ML VIAL ONE (10:31)
[2018-06-14] MEDS ORDERED: Dexamethasone 4 MG/ML VIAL ONE (10:31)
[2018-06-14] MEDS ORDERED: *HR* Propofol 200 MG/20 ML VIAL IVP ONE (10:53)
[2018-06-14] MEDS ORDERED: *HR* FentaNYL (PF) 100 MCG/2 ML VIAL ONE ×2 (10:53→12:27)
[2018-06-14] MEDS ORDERED: Scopolamine Patch 1.5 MG PATCH.TD72 ONE (11:36)
--- NOTE | 2018-06-14 11:39 | Anesthesia Evaluation PreOp ---
Date of Encounter: 06/14/18 Time of Encounter: 11:37 - Past History Planned Operation: debridement right buttock wound Cardiac History: HTN, Hyperlipidemia, Arrhythmia (afib), Other (severe pulmonary HTN) Pulmonary History: GABRIEL Dx [employer] History: Denies Any Significant HX Other Medical History: Hepatic (cirrhosis), Renal (ARF), Diabetes Type II, Other (obesity BMI 47, abscess buttock) Anesthesia History: Past Anesthesia (hernia, deb), Problems (PONV) : No Alcohol Use: none Drug use: none Medications and Allergies Atorvastatin Calcium [Lipitor] 20 mg PO QPM 06/10/18 [History] Furosemide [Lasix] 20 mg PO Q48H 06/10/18 [History] Lisinopril [Zestril] 40 mg PO DAILY 06/10/18 [History] Metoprolol Succinate [Toprol Xl] 50 mg PO DAILY 06/10/18 [History] Multivit-Min/FA/Lycopen/Lutein [A Thru Z Select Multivit Tab] 1 tab PO DAILY 06/10/18 [History] Rivaroxaban [Xarelto] 20 mg PO DAILY 06/10/18 [History] Ubidecarenone [Co Q-10] 100 mg PO DAILY 06/10/18 [History] hydroCHLOROthiazide [Hydrochlorothiazide] 25 mg PO DAILY 06/10/18 [History] Allergy/AdvReac Type Severity Reaction Status Date / Time iodine Allergy Unknown unknown Uncoded 08/07/15 05:00 - Meds/Allergy Pre-op Review Medications Reviewed: Yes Allergies Reviewed: Yes Beta Blockers on Current Med List: Yes (metoprolol) Anesthesia Results - Labs 06/14/18 03:56 06/14/18 03:56 - Imaging EKG: report reviewed Additional studies: 06/13/2019 Impression: No ischemia or infarct on perfusion study. Normal perfusion study. Stress LVEF 66%. Pharmacologic stress ECG non-diagnostic for ischemia. Echo 06/12/2018 Impressions: LVEF 65-70%. Normal LV chamber size and systolic function. Mild concentric left ventricular hypertrophy. Indeterminate diastolic function. Normal right ventricular structure and function. Mildly dilated left atrium. Mildly dilated right atrium. Severe mitral posterior leaflet calcification without stenosis. Mild tricuspid regurgitation. Severe pulmonary hypertension. Left Ventricular Wall Motion: Rest Echo Findings All wall segments showed normal motion. Findings: Study Quality * Technically adequate exam. ECG Findings * Atrial fibrillation. Left Ventricle * LVEF 65-70%. * Normal LV chamber size and systolic function. * Mild concentric left ventricular hypertrophy. * Indeterminate diastolic function. Right Ventricle * Normal right ventricular structure and function. Left Atrium * Mildly dilated left atrium. Right Atrium * Mildly dilated right atrium. Interatrial Septum * Interatrial septum not well evaluated. Aortic Valve * Trileaflet aortic valve with normal function. * No aortic regurgitation. * No aortic stenosis. Mitral Valve * Severe posterior leaflet calcification. * Moderate mitral annulus calcification. * Trace mitral regurgitation. * No mitral stenosis. Tricuspid Valve * Normal tricuspid valve structure. * No tricuspid stenosis. * Mild tricuspid regurgitation. * Estimated RVSP is 71 mmHg. * Estimated RA pressure is 10 mmHg. * Severe pulmonary hypertension. Pulmonic Valve * Pulmonic valve is not well visualized. * No pulmonic stenosis. * Trace pulmonic regurgitation. Aorta * Normally sized aortic root. Pericardium * The pericardium appears normal. IVC * Normal IVC dimensions and inspiratory collapse. Anesthesia Exam Vital Signs/O2 Sat/Glucose, Most Recent Temp Pulse Resp BP Pulse Ox 97.6 F 97 16 114/71 99 06/14/18 09:50 06/14/18 09:50 06/14/18 09:50 06/14/18 09:50 06/14/18 09:50 Blood Glucose* 128 Weight: 110 kg NPO (# of Hours): > 8 hr - HEENT Pupil (Motor): Pupils equal Mallampati: II Oral Opening: Greater than 3 - [employer] LOC: Oriented [employer] Motor: Normal RUE, Normal LUE, Normal RLE, Normal LLE, Normal Face [employer] Sensory: Normal: RUE, LUE, RLE, LLE, Face - Cardiac Rhythm: Irregular - Pulmonary Breath Sounds: bilateral Clear Respiratory Effort: Symmetrical Anesthesia Assess/Plan ASA Score: 4 Level of consciousness: Cooperative, Oriented Anesthetic Plan: General Monitoring Plan: Standard Monitors Recovery Plan: PACU
[2018-06-14] MEDS ORDERED: *HR* Meperidine 25 MG/ML SYRINGE IVP PRN (12:45)
[2018-06-14] MEDS ORDERED: *HR* HYDROmorphone (PF) 1 MG/ML SYRINGE IVP PRN (12:45)
[2018-06-14] MEDS ORDERED: *HR* OxyCODONE Immed Rel 5 MG TABLET PO PRN (12:45)
[2018-06-14] MEDS ORDERED: *HR* Promethazine 25 MG/ML VIAL IVP PRN (12:45)
[2018-06-14] MEDS ORDERED: *HR* Labetalol 20 MG/4 ML SYRINGE IVP PRN (12:45)
[2018-06-14] MEDS ORDERED: *HR* PHENYLEPHRINE 1,000 MCG/10 ML SYRINGE IVP ONE (13:10)
[2018-06-14] MEDS ORDERED: Lacri-Lube 3.5 GM TUBE ONE (13:19)
--- NOTE | 2018-06-14 13:19 | Operative Note ---
Date of procedure: 06/14/18 Pre-op diagnosis: Right buttock wound/necrotic tissue Post-op diagnosis: same Procedure: Myofascial debridement of right buttock wound (8 x 12.5 cm). Anesthesia: JULIO C Surgeon: Zack Reed Was there an business office assistant present: No Estimated blood loss (cc): 50 Specimen: Right buttock wound cultures. Right buttock tissue for pathology Condition: stable Disposition: PACU Procedure in Detail: Date of surgery: 06/14/18 After properly identifying the patient, the patient was brought to the operating room and placed in the supine position. After proper IV sedation was achieved followed by general endotracheal intubation, the patient was placed in a prone position and the right buttock were prepped and draped in a normal sterile fashion. A timeout was performed noting the patient's name and type of procedure to be performed. Of note, the patient had a wound already incised with packing removed that was approximately 4-5 cm in length. Examination demonstrated that just inferior to this wound (which was on the right buttock) were 2 small openings concerning for tunneling. A 15 blade scalpel was used to extend the incision inferiorly from the already open incision/wound down to the 2 small openings inferior to this for length of approximately 10 cm. There was necrotic tissue noted within the base which was dissected with sharp dissection and Bovie cauterization. Hemostasis was maintained with Bovie cauterization. There was further necrotic tissue noted along the base and within the subcutaneous tissue and along the gluteal muscle which were dissected with Bovie cauterization. Superiorly it appeared that the wound also experiencing tunneling for several centimeters. The epidermal and dermis were opened with a 15 blade scalpel superiorly with exposure of necrotic subcutaneous tissue which was also debrided sharply and you with Bovie cauterization. Cultures were obtained within this fresh tunneled area (acid- fast bacillus, fungal, aerobic, and anaerobic). Bovie cauterization was also used to maintain hemostasis. Following deep myofascial debridement with Bovie cauterization and once hemostasis was obtained the wound was measured and noted to be approximately 12.5 cm to 8 cm. Quarter percent Dakin's solution soaked Kerlix was then used to pack the wound which was then covered by 4 x 4 and a be dressing. Needle, sponge, and instrument counts were correct 2 and the patient was placed in a supine position on the stretcher, extubated in the operating room without complication, and transported to the recovery room in stable condition.
--- NOTE | 2018-06-14 13:27 | Event Note ---
Date of Encounter: 06/14/18 Time of Encounter: 13:26 Mild special debridement of the right buttock wound has been performed today. Aerobic, anaerobic, AFB, and fungal cultures have been sent. Wound packed with Dakin's dressing and will be changed daily. Will monitor over the next several days and consider wound VAC as early as the weekend of wound appears to be healing appropriately. Please hold on restarting Xarelto until we have assessed and are comfortable that the medication will not result in excessive bleeding from the wound bed. We will continue to follow with you.
[2018-06-14] MEDS ORDERED: *HR* OxyCODONE/APAP 7.5/325 TABLET PO PRN (14:04)
[2018-06-14] MEDS ORDERED: Dextrose Gel 15 GM/37.5 ML TUBE PO PRN ×2 (14:04)
[2018-06-14] MEDS ORDERED: Naloxone 0.4 MG/ML INJ IVP PRN (14:04)
[2018-06-14] MEDS ORDERED: MORPHINE SUL Oral CONC 10 MG/0.5 ML ORAL.SYG SL PRN (14:04)
[2018-06-14] MEDS ORDERED: Ondansetron 4 MG/2 ML VIAL IVP PRN (14:04)
[2018-06-14] MEDS ORDERED: D5% in Water 1,000 ML IVC PRN (14:04)
[2018-06-14] MEDS ORDERED: *HR* Dextrose 50 % in Water (Syg) 50 ML SYRINGE IVP PRN (14:04)
--- NOTE | 2018-06-14 15:42 | Internal Med Progress Note ---
Hospitalist Progress Note - Encounter Date of Encounter: 06/14/18 Time of Encounter: 07:50 - Subjective Interval History: No acute events overnight. Denies any worsening pain over her buttock, fever/chills, nausea/vomiting, chest pain, shortness of breath, or cough. - Exam Vitals: Temp Pulse Resp BP Pulse Ox 99.0 F 97 18 122/77 91 06/14/18 14:03 06/14/18 14:03 06/14/18 14:03 06/14/18 14:03 06/14/18 14:03 Exam: General: Patient is alert, oriented, no acute distress, morbidly obese Respiratory: distant breathsounds but mostly clear Cardiovascular: S1S2, irregular rhythm Abdomen: soft, non-tender Skin: R gluteal erythema is improving, no obvious collection or fluctuance appreciated Neuro: No focal deficit - Assessment and Plan (1) Sepsis Current Visit: Yes Status: Acute Assessment and Plan: secondary gluteal cellulitis +/0 necrotizing cellulitis underwent I&D initially, culture has been negative so far Leukocytosis improving on vanc/zosyn, continue scheduled for exploration today follow with surgery (2) Cellulitis Current Visit: Yes Status: Acute Assessment and Plan: abx as above for surgical exploration today follow up on cultures (3) ARF (acute renal failure) Current Visit: Yes Status: Resolved Assessment and Plan: most likely secondary to hypotension ( BP trended down on the early AM on 06/12- improved on 06/13) Cr improved with IVF if able to take well orally post-op, d/c IVF vancomycin - pharmacy to dose avoid nephrotoxic medications lasix, HCTZ, lisinopril on hold for now. (4) Cirrhosis Current Visit: Yes Status: Suspected Assessment and Plan: new finding since liver 08/2016, CT showed mild nodular hepatic contour ?TEIXEIRA given her morbid obesity CTP B7, MELD score 23 no evidence of decompensation, for outpatient hepatology follow up (5) Chronic a-fib Current Visit: Yes Status: Chronic Assessment and Plan: continue metoprolol xarelto to remain hold until the wound bed is assessed for bleeding per surgery (6) (HFpEF) heart failure with preserved ejection fraction Current Visit: Yes Status: Chronic Assessment and Plan: currently not in exacerbation will likely be able to resume lasix soon as long as Cr remains stable (7) Moderate to severe pulmonary hypertension Current Visit: Yes Status: Acute (8) Hyponatremia Current Visit: Yes Status: Chronic Assessment and Plan: appears to be chronic upon reviewing her labs for the last 3 years may be related to cirrhosis that appears to be new since US in 08/2016 ?steatohepatitis held lasix and HCTZ for now (9) Morbid obesity Current Visit: Yes Status: Acute Assessment and Plan: counseling provided (10) DVT prophylaxis Current Visit: Yes Status: Acute Assessment and Plan: heparin SQ while xarelto is on hold - Time Spent with Patient Total time spent is greater than 50% in coordination of care (as documented) at patient's floor/unit and/or counseling patient: Plan of Care Discussed with: family Internal Medicine: Result - Labs CBC & Chem 7: 06/14/18 03:56 06/14/18 03:56 Labs: Short CBC 06/14/18 Range/Units 03:56 WBC 13.9 H (4.3-11.1) K/mcL Hgb 11.1 L (11.5-15.4) g/dL Hct 33.1 L (35.3-44.9) % Plt Count 193 (140-400) K/mcL Neutrophils # 11.2 H (1.6-8.9) K/mcL BMP 06/14/18 03:56 Sodium 129 L Potassium 3.7 Chloride 102 Carbon Dioxide 19 L BUN 30 H Creatinine 0.96 Glucose 142 H Calcium 7.8 L - ABG Interpretation ABG results: PT/INR, D-dimer PT 23.9 Seconds (9.4-12.1) H 06/14/18 03:56 Consult Discharge Plan - Plan Referrals: Shravan Hartmann MD [Primary Care Provider] - __ (1) Sepsis Qualifiers: Sepsis type: sepsis due to unspecified organism Qualified Code(s): A41.9 - Sepsis, unspecified organism (2) Cellulitis Qualifiers: Site of cellulitis: buttock Qualified Code(s): L03.317 - Cellulitis of buttock (3) ARF (acute renal failure) Qualifiers: Acute renal failure type: unspecified Qualified Code(s): N17.9 - Acute kidney failure, unspecified (4) Cirrhosis Qualifiers: Hepatic cirrhosis type: unspecified hepatic cirrhosis Ascites presence: without ascites Qualified Code(s): K74.60 - Unspecified cirrhosis of liver
--- NOTE | 2018-06-14 21:38 | Infectious Disease Progress No ---
Date of Encounter: 06/14/18 Time of Encounter: 10:00 - Assessment and Plan (1) Sepsis Current Visit: Yes Status: Acute The patient had 3 sepsis criteria on admission. Likely secondary to necrotizing cellulitis and abscess. Improved clinically. White blood cell count is improved. Tachycardia and tachypnea have resolved. Blood cultures drawn 06/10/18 are no growth 2 sets. Recommendations: - Await blood cultures to finalize. - Wound care per the surgery team. - Surgery team planning for formal debridement 06/14/18. Please get new cultures including AFB and fungal cultures. Discussed with the surgery team. - Continue Vancomycin IV. Pharmacy to dose. Goal trough ~15. - Continue Zosyn 3.375 grams IV Q8H. - Duration of treatment depends on the clinical picture. - Monitor renal function and for drug toxicity and dose-adjust antibiotics. Qualifiers: Sepsis type: sepsis due to unspecified organism Qualified Code(s): A41.9 - Sepsis, unspecified organism (2) Necrotizing cellulitis Current Visit: Yes Status: Acute Location: Right gluteal cleft. Etiology: Unclear. CT of the abdomen and pelvis showed subcutaneous straining and gas at the right aspect of the gluteal cleft concerning for necrotizing cellulitis. Gen. surgery consulted. Performed a bedside I&D with no pus noted, but there was necrosis of the wound bed. Wound culture is negative. Surgery is planning for formal debridement 06/14/18. Will request new cultures. Antibiotic recommendations as above. Wound care per the general surgery team. (3) Abscess of right buttock Current Visit: Yes Status: Acute Location: Right buttock. Causative organism unclear. Status post bedside I&D 06/10/[address] Reed. Wound culture is negative. Gen. surgery team is planning for formal debridement 06/14/18. (4) Chronic a-fib Current Visit: Yes Status: Chronic (5) (HFpEF) heart failure with preserved ejection fraction Current Visit: Yes Status: Chronic (6) Morbid obesity Current Visit: Yes Status: Acute (7) Cirrhosis Current Visit: Yes Status: Suspected CT of the abdomen and pelvis showed mildly nodular hepatic contour concerning for cirrhosis. MELD scare 23. Recommend GI to evaluate. Qualifiers: Hepatic cirrhosis type: unspecified hepatic cirrhosis Ascites presence: without ascites Qualified Code(s): K74.60 - Unspecified cirrhosis of liver - Subjective Interval history: Patient seen and examined. No acute events noted overnight. Denies any fevers or chills or rigors. Denies any chest pain, cough, but she does report some mild shortness of breath. She denies any nausea, vomiting, diarrhea, or constipation. She denies abdominal pain, urinary complaints, or appetite buddy nges. She denies any pain at the site of the cellulitis/abscess, but states it is uncomfortable. She denies any oral thrush or new skin lesions. Infect Dis PN-Objective Data - Labs CBC & Chem 7: 06/14/18 03:56 06/14/18 03:56 Labs: Laboratory Results - last 24 hr 06/12/18 06/14/18 06/14/18 19:12 03:56 03:56 WBC 13.9 H RBC 3.45 L Hgb 11.1 L Hct 33.1 L MCV 95.9 MCH 32.2 MCHC 33.5 RDW 13.4 Plt Count 193 MPV 10.0 Immature Gran % 3.2 Seg Neutrophils % 80.6 Lymphocytes % 9.1 Monocytes % 5.5 Eosinophils % 1.1 Basophils % 0.5 Neutrophils # 11.2 H Lymphocytes # 1.3 Monocytes # 0.8 Eosinophils # 0.2 Basophils # 0.1 PT INR Sodium 129 L Potassium 3.7 Chloride 102 Carbon Dioxide 19 L BUN 30 H Creatinine 0.96 Est GFR ( Amer) > 60 Est GFR (Non-Af Amer) 57 L BUN/Creatinine Ratio 31 H Glucose 142 H POC Glucose Calculated Osmolality 277 L Calcium 7.8 L Vancomycin Trough Blood Type O POSITIVE Antibody Screen NEGATIVE 06/14/18 06/14/18 06/14/18 03:56 05:35 17:01 WBC RBC Hgb Hct MCV MCH MCHC RDW Plt Count MPV Immature Gran % Seg Neutrophils % Lymphocytes % Monocytes % Eosinophils % Basophils % Neutrophils # Lymphocytes # Monocytes # Eosinophils # Basophils # PT 23.9 H INR 2.1 Sodium Potassium Chloride Carbon Dioxide BUN Creatinine Est GFR ( Amer) Est GFR (Non-Af Amer) BUN/Creatinine Ratio Glucose POC Glucose 128 H Calculated Osmolality Calcium Vancomycin Trough 12 H Blood Type Antibody Screen 06/14/18 17:50 WBC RBC Hgb Hct MCV MCH MCHC RDW Plt Count MPV Immature Gran % Seg Neutrophils % Lymphocytes % Monocytes % Eosinophils % Basophils % Neutrophils # Lymphocytes # Monocytes # Eosinophils # Basophils # PT INR Sodium Potassium Chloride Carbon Dioxide BUN Creatinine Est GFR ( Amer) Est GFR (Non-Af Amer) BUN/Creatinine Ratio Glucose POC Glucose 192 H Calculated Osmolality Calcium Vancomycin Trough Blood Type Antibody Screen Cultures: Cultures 06/10/18 20:22 Wound Culture - Final Buttock No growth. 06/10/18 12:52 Blood Culture - Preliminary Peripheral Venipuncture Culture is incubating and being continuously monitored for growth. Final report to follow. 06/10/18 12:52 Blood Culture - Preliminary Peripheral Venipuncture Culture is incubating and being continuously monitored for growth. Final report to follow. Exam - Constitutional Vitals: Temp Pulse Resp BP Pulse Ox 97.5 F L 83 14 124/71 100 06/14/18 19:07 06/14/18 19:07 06/14/18 19:07 06/14/18 19:07 06/14/18 20:11 - Respiratory Respiratory exam: Present: CTAB. Absent: wheezes - Cardiovascular Cardiovascular exam: Present: RRR, +S1, +S2 - GI/Abdominal GI/Abdominal exam: Present: normal bowel sounds, soft. Absent: tenderness - Extremities Exam Extremities exam: Present: full ROM. Absent: joint swelling Consult Discharge Plan - Plan Referrals: Shravan Hartmann MD [Primary Care Provider] -
[2018-06-15] MEDS: Piperacillin/Tazobactam 3.375 GM in 0.9 % Sodium Chloride Mini Bag 100 ML IVPB SCH ×3 (00:14→15:21)
[2018-06-15] MEDS: 0.9 % Sodium Chloride 1,000 ML IVC SCH ×3 (02:45→19:23)
[2018-06-15 04:03] LABS: Basophils # 0.1 K/mcL (0.0-0.2); Basophils % 0.5 %; Eosinophils % 0.1 %; Hematocrit 31.7 % (35.3-44.9); Hemoglobin 10.8 g/dL (11.5-15.4); Immature Granulocytes % 6.1 % (0-4); Lymphocytes % 7.2 %; Mean Corpuscular HGB Conc 34.1 g/dL (31.6-35.5); Mean Corpuscular Hemoglobin 32.6 pg (28.0-33.3); Mean Corpuscular Volume 95.8 fL (83.0-100.0); Mean Platelet Volume 9.9 fL (9.4-12.4); Monocytes # 0.5 K/mcL (0.0-1.3); Monocytes % 3.9 %; Platelet Count 206 K/mcL (140-400); Red Blood Count 3.31 M/mcL (3.82-4.97); Red Cell Distribution Width 13.5 % (11.5-14.5); Segmented Neutrophils % 82.2 %
[2018-06-15 04:04] LABS: Neutrophils # 10.9 K/mcL (1.6-8.9)
[2018-06-15 04:22] LABS: Alanine Aminotransferase 30 Units/L (7-52); Albumin 2.6 g/dL (3.5-5.7); Alkaline Phosphatase 83 Units/L (34-104); Aspartate Amino Transferase 28 Units/L (13-39); BUN/Creatinine Ratio 28 (6-26); Bilirubin,Total 0.7 mg/dL (0.3-1.0); Blood Urea Nitrogen 23 mg/dL (8-23); Calcium 7.8 mg/dL (8.6-10.3); Carbon Dioxide 21 mEq/L (23-29); Chloride 105 mEq/L (98-107); Globulin 2.6 g/dL (2.4-3.5); Glucose 194 mg/dL (70-105); Magnesium 1.8 mg/dL (1.6-2.6); Osmolality,Calculated 283 (280-300); Sodium 132 mEq/L (136-145); Total Protein 5.2 g/dL (6.4-8.9); eGFR For Non-African Americans > 60 (> 60)
[2018-06-15] MEDS: Metoprolol XL (24 HR) Succ 50 MG TAB.ER.24H PO SCH (08:11)
[2018-06-15] MEDS: Multivit/Ca/Min/Fe/FA 1 TAB TABLET PO SCH (08:11)
[2018-06-15] MEDS: Insulin LISPRO 300 UNITS/3 ML VIAL SQ SCH ×4 (08:12→20:59)
[2018-06-15] MEDS ORDERED: Pantoprazole 40 MG VIAL IVP SCH (09:00)
--- NOTE | 2018-06-15 14:41 | General Surgery Progress Note ---
Date of Encounter: 06/15/18 Time of Encounter: 13:20 - Assessment and Plan (1) Abscess of right buttock Current Visit: Yes Status: Acute pt s/p debridement right buttock abscess, irriate wound with saline, pack with kerlix moistened with 0.25% dakins, cover with 4x4 gauze and secure with medipore tape, change dialy and prn soilage, will need santyl in future prn pain control ok to shower diabetic diet ambulate gi/dvt prophyalxis Subjective Patient reports: no new complaints, feels better, still having pain, tolerating a regular diet, flatus, bowel movement, afebrile Objective Vital Signs - Last 8 Hours Temp Pulse Resp BP Pulse Ox 06/15/18 11:29 97.3 F L 80 15 142/87 96 06/15/18 07:01 97.7 F 103 19 114/65 93 Intake and Output 06/14/18 06/15/18 06/15/18 23:59 07:59 15:59 Intake Total 200 / 200 1350 / 1350 240 / 240 Output Total 0 / 0 0 / 0 Balance 200 / 200 1350 / 1350 240 / 240 Intake: IV Fluids 100 / 100 1350 / 1350 0.9 % Sodium Chloride 1,000 ML 1000 / 1000 @ 100 mls/hr IVC .Q10H [facility] Rx#: [id number] Zosyn 3.375 GM In 0.9 % Sodium 100 / 100 100 / 100 Chloride (Mini-Bag +) 100 ML @ 25 mls/hr IVPB Q8HR [facility] Rx#: [id number] Vancocin 1,250 MG In 0.9 % 250 / 250 Sodium Chloride 250 ML @ 166.67 mls/hr IVPB Q24H [facility] Rx#: [id number] Oral 100 / 100 0 / 0 240 / 240 Output: Urine 0 / 0 0 / 0 Other: Meal Lunch Percent of Meal Consumed 95% Stool Size Large Moderate Stool Consistency liquid liquid Stool Color Brown Brown # Voids 1 # Bowel Movements 1 1 Weight 110.5 kg Blood Glucose* 213 166 145 Patient Weight 06/15/18 23:59 Weight 110.5 kg - General physical appearance well developed, well nourished, no distress, obese - Eyes PERRL, normal ocular movement - ENT normal mucosa, normocephalic - Neck Neck exam: trachea midline - Respiratory normal expansion, normal respiratory effort - Cardiovascular Cardiovascular exam: Present: RRR - Incision Incision: Present: draining, clean and dry, intact, erythema, indurated - Integumentary no rash - Neurologic CN 2-12 grossly intact - Musculoskeletal normal posture - Psychiatric oriented to time, oriented to person, oriented to place, memory intact - Labs 06/15/18 03:07 06/15/18 03:07 Diabetes panel 06/15/18 Range/Units 03:07 Sodium 132 L (136-145) mEq/L Potassium 4.0 (3.5-5.1) mEq/L Chloride 105 (98-107) mEq/L Carbon Dioxide 21 L (23-29) mEq/L BUN 23 (8-23) mg/dL Creatinine 0.82 (0.60-1.20) mg/dL Glucose 194 H (70-105) mg/dL Calcium 7.8 L (8.6-10.3) mg/dL AST 28 (13-39) Units/L ALT 30 (7-52) Units/L Alkaline Phosphatase 83 (34-104) Units/L Albumin 2.6 L (3.5-5.7) g/dL Calcium panel 06/15/18 Range/Units 03:07 Calcium 7.8 L (8.6-10.3) mg/dL Albumin 2.6 L (3.5-5.7) g/dL Pituitary panel 06/15/18 Range/Units 03:07 Sodium 132 L (136-145) mEq/L Potassium 4.0 (3.5-5.1) mEq/L Chloride 105 (98-107) mEq/L Carbon Dioxide 21 L (23-29) mEq/L BUN 23 (8-23) mg/dL Creatinine 0.82 (0.60-1.20) mg/dL Glucose 194 H (70-105) mg/dL Calcium 7.8 L (8.6-10.3) mg/dL Adrenal panel 06/15/18 Range/Units 03:07 Sodium 132 L (136-145) mEq/L Potassium 4.0 (3.5-5.1) mEq/L Chloride 105 (98-107) mEq/L Carbon Dioxide 21 L (23-29) mEq/L BUN 23 (8-23) mg/dL Creatinine 0.82 (0.60-1.20) mg/dL Glucose 194 H (70-105) mg/dL Calcium 7.8 L (8.6-10.3) mg/dL Total Bilirubin 0.7 (0.3-1.0) mg/dL AST 28 (13-39) Units/L ALT 30 (7-52) Units/L Alkaline Phosphatase 83 (34-104) Units/L Albumin 2.6 L (3.5-5.7) g/dL Consult Discharge Plan - Plan Referrals: Shravan Hartmann MD [Primary Care Provider] -
--- NOTE | 2018-06-15 14:41 | Internal Med Progress Note ---
Hospitalist Progress Note - Encounter Date of Encounter: 06/15/18 Time of Encounter: 11:40 - Subjective Interval History: Underwent myofascial debridement uneventfully yesterday. Denies any worsening pain over her buttock, fever/chills, nausea/vomiting, chest pain, shortness of breath, or cough. - Exam Vitals: Temp Pulse Resp BP Pulse Ox 97.3 F L 80 15 142/87 96 06/15/18 11:29 06/15/18 11:29 06/15/18 11:29 06/15/18 11:29 06/15/18 11:29 Exam: General: Patient is alert, oriented, no acute distress, morbidly obese Respiratory: distant breathsounds but mostly clear Cardiovascular: S1S2, irregular rhythm Abdomen: soft, non-tender Skin: R buttock dressing dry and clean Neuro: No focal deficit - Assessment and Plan (1) Sepsis Current Visit: Yes Status: Acute Assessment and Plan: secondary gluteal cellulitis +/- necrotizing cellulitis underwent I&D initially, culture has been negative so far underwent myofascial debridement of the wound yesterday, POD1 Leukocytosis improving on vanc/zosyn, continue follow up on repeat wound culture appreciate surgery and ID input (2) Cellulitis Current Visit: Yes Status: Acute Assessment and Plan: abx as above s/p myofascial debridement follow up on repeat cultures (3) ARF (acute renal failure) Current Visit: Yes Status: Resolved Assessment and Plan: most likely secondary to hypotension ( BP trended down on the early AM on 06/12- improved on 06/13) Cr improved with IVF, d/eddy yesterday post-op renally dosed abx, avoid nephrotoxic medications lasix, HCTZ, lisinopril on hold for now. (4) Cirrhosis Current Visit: Yes Status: Suspected Assessment and Plan: new finding since US liver 08/2016, CT showed mild nodular hepatic contour ?TEIXEIRA given her morbid obesity CTP B7, MELD score 23 no evidence of decompensation, for outpatient hepatology follow up. Discussed in great detail with the patient and his regarding the importance of follow up. (5) Chronic a-fib Current Visit: Yes Status: Chronic Assessment and Plan: continue metoprolol xarelto to remain hold until the wound bed is assessed for bleeding per surgery (6) (HFpEF) heart failure with preserved ejection fraction Current Visit: Yes Status: Chronic Assessment and Plan: currently not in exacerbation will likely be able to resume lasix soon as long as Cr remains stable (7) Moderate to severe pulmonary hypertension Current Visit: Yes Status: Acute Assessment and Plan: likely due to GABRIEL, repeat sleep study outpatient (8) Hyponatremia Current Visit: Yes Status: Chronic Assessment and Plan: appears to be chronic upon reviewing her labs for the last 3 years may be related to cirrhosis that appears to be new since US in 08/2016 ?maxime atohepatitis held lasix and HCTZ for now (9) Morbid obesity Current Visit: No Status: Chronic Assessment and Plan: counseling provided (10) DVT prophylaxis Current Visit: Yes Status: Acute Assessment and Plan: heparin SQ while xarelto is on hold - Time Spent with Patient Total time spent is greater than 50% in coordination of care (as documented) at patient's floor/unit and/or counseling patient: Plan of Care Discussed with: family Internal Medicine: Result - Labs CBC & Chem 7: 06/15/18 03:07 06/15/18 03:07 Labs: Short CBC 06/15/18 Range/Units 03:07 WBC 13.2 H (4.3-11.1) K/mcL Hgb 10.8 L (11.5-15.4) g/dL Hct 31.7 L (35.3-44.9) % Plt Count 206 (140-400) K/mcL Neutrophils # 10.9 H (1.6-8.9) K/mcL BMP 06/15/18 03:07 Sodium 132 L Potassium 4.0 Chloride 105 Carbon Dioxide 21 L BUN 23 Creatinine 0.82 Glucose 194 H Calcium 7.8 L Liver Function 06/15/18 Range/Units 03:07 Total Bilirubin 0.7 (0.3-1.0) mg/dL AST 28 (13-39) Units/L ALT 30 (7-52) Units/L Alkaline Phosphatase 83 (34-104) Units/L Albumin 2.6 L (3.5-5.7) g/dL - ABG Interpretation ABG results: PT/INR, D-dimer PT 23.9 Seconds (9.4-12.1) H 06/14/18 03:56 Consult Discharge Plan - Plan Referrals: Shravan Hartmann MD [Primary Care Provider] - (1) Sepsis Qualifiers: Sepsis type: sepsis due to unspecified organism Qualified Code(s): A41.9 - Sepsis, unspecified organism (2) Cellulitis Qualifiers: Site of cellulitis: buttock Qualified Code(s): L03.317 - Cellulitis of buttock (3) ARF (acute renal failure) Qualifiers: Acute renal failure type: unspecified Qualified Code(s): N17.9 - Acute kidney failure, unspecified (4) Cirrhosis Qualifiers: Hepatic cirrhosis type: unspecified hepatic cirrhosis Ascites presence: without ascites Qualified Code(s): K74.60 - Unspecified cirrhosis of liver
[2018-06-15] MEDS: *HR* Heparin 5,000 UNIT/ML VIAL SQ SCH ×3 (15:22→22:13)
[2018-06-16] MEDS: Piperacillin/Tazobactam 3.375 GM in 0.9 % Sodium Chloride Mini Bag 100 ML IVPB SCH ×3 (01:52→15:14)
[2018-06-16 04:46] LABS: Hematocrit 32.9 % (35.3-44.9); Hemoglobin 11.1 g/dL (11.5-15.4); Lymphocytes # 1.7 K/mcL (0.6-4.6); Mean Corpuscular HGB Conc 33.7 g/dL (31.6-35.5); Mean Corpuscular Hemoglobin 32.8 pg (28.0-33.3); Mean Corpuscular Volume 97.3 fL (83.0-100.0); Mean Platelet Volume 9.5 fL (9.4-12.4); Platelet Count 219 K/mcL (140-400); Red Blood Count 3.38 M/mcL (3.82-4.97)
[2018-06-16 05:03] LABS: BUN/Creatinine Ratio 27 (6-26); Blood Urea Nitrogen 26 mg/dL (8-23); Calcium 8.1 mg/dL (8.6-10.3); Carbon Dioxide 20 mEq/L (23-29); Chloride 106 mEq/L (98-107); Glucose 129 mg/dL (70-105); Osmolality,Calculated 284 (280-300); Potassium 3.9 mEq/L (3.5-5.1); Sodium 134 mEq/L (136-145); eGFR For Non-African Americans 55 (> 60)
[2018-06-16 05:31] LABS: Neutrophils # 9.4 K/mcL (1.6-8.9); Platelet Estimate Normal (Normal)
[2018-06-16] MEDS: *HR* Heparin 5,000 UNIT/ML VIAL SQ SCH ×3 (06:09→21:24)
[2018-06-16] MEDS ORDERED: Furosemide 20 MG TABLET PO SCH (08:30)
[2018-06-16] MEDS: Insulin LISPRO 300 UNITS/3 ML VIAL SQ SCH ×4 (08:36→21:00)
[2018-06-16] MEDS: Metoprolol XL (24 HR) Succ 50 MG TAB.ER.24H PO SCH (09:08)
[2018-06-16] MEDS: Multivit/Ca/Min/Fe/FA 1 TAB TABLET PO SCH ×2 (09:09→09:11)
--- NOTE | 2018-06-16 12:20 | General Surgery Progress Note ---
Date of Encounter: 06/16/18 Time of Encounter: 12:18 - Assessment and Plan (1) Abscess of right buttock Current Visit: Yes Status: Acute pt s/p debridement right buttock abscess, irrigate wound with saline, pack with kerlix moistened with 0.25% dakins, cover with 4x4 gauze and secure with medipore tape, change dialy and prn soilage, will need santyl in future prn pain control ok to shower diabetic diet ambulate gi/dvt prophyalxis Subjective Patient reports: no new complaints, feels better, still having pain, pain is less, tolerating a regular diet, flatus, bowel movement, afebrile Objective Vital Signs - Last 8 Hours Temp Pulse Resp BP Pulse Ox 06/16/18 10:41 98.0 F 83 13 133/76 100 06/16/18 05:06 97.5 F L 71 16 108/73 98 Intake and Output 06/15/18 06/16/18 06/16/18 23:59 07:59 15:59 Intake Total 590 / 590 100 / 100 120 / 120 Output Total 0 / 0 200 / 200 Balance 590 / 590 -100 / -100 120 / 120 Intake: IV Fluids 350 / 350 100 / 100 Zosyn 3.375 GM In 0.9 % Sodium 100 / 100 100 / 100 Chloride (Mini-Bag +) 100 ML @ 25 mls/hr IVPB Q8HR [facility] Rx#: [id number] Vancocin 1,250 MG In 0.9 % 250 / 250 Sodium Chloride 250 ML @ 166.67 mls/hr IVPB Q24H [facility] Rx#: [id number] Oral 240 / 240 0 / 0 120 / 120 Output: Urine 0 / 0 200 / 200 Other: Meal Dinner Breakfast Percent of Meal Consumed 50% 50% Stool Size Small Stool Consistency liquid Stool Color Brown # Voids 1 1 1 # Bowel Movements 1 Weight 115.1 kg 115 kg Blood Glucose* 142 101 90 Patient Weight 06/16/18 23:59 Weight 115 kg - General physical appearance well developed, well nourished, no distress, obese - Eyes PERRL, normal ocular movement - ENT normal mucosa, normocephalic - Neck Neck exam: trachea midline - Respiratory normal expansion, clear to auscultation - Cardiovascular Cardiovascular exam: Present: RRR - Incision Incision: Present: draining, serosanguinous, open - Integumentary no rash - Neurologic CN 2-12 grossly intact - Musculoskeletal normal posture - Psychiatric oriented to time, memory intact - Labs 06/16/18 04:12 06/16/18 04:12 Diabetes panel 06/16/18 Range/Units 04:12 Sodium 134 L (136-145) mEq/L Potassium 3.9 (3.5-5.1) mEq/L Chloride 106 (98-107) mEq/L Carbon Dioxide 20 L (23-29) mEq/L BUN 26 H (8-23) mg/dL Creatinine 0.98 (0.60-1.20) mg/dL Glucose 129 H (70-105) mg/dL Calcium 8.1 L (8.6-10.3) mg/dL Calcium panel 06/16/18 Range/Units 04:12 Calcium 8.1 L (8.6-10.3) mg/dL Pituitary panel 06/16/18 Range/Units 04:12 Sodium 134 L (136-145) mEq/L Potassium 3.9 (3.5-5.1) mEq/L Chloride 106 (98-107) mEq/L Carbon Dioxide 20 L (23-29) mEq/L BUN 26 H (8-23) mg/dL Creatinine 0.98 (0.60-1.20) mg/dL Glucose 129 H (70-105) mg/dL Calcium 8.1 L (8.6-10.3) mg/dL Adrenal panel 06/16/18 Range/Units 04:12 Sodium 134 L (136-145) mEq/L Potassium 3.9 (3.5-5.1) mEq/L Chloride 106 (98-107) mEq/L Carbon Dioxide 20 L (23-29) mEq/L BUN 26 H (8-23) mg/dL Creatinine 0.98 (0.60-1.20) mg/dL Glucose 129 H (70-105) mg/dL Calcium 8.1 L (8.6-10.3) mg/dL Consult Discharge Plan - Plan Referrals: Shravan Hartmann MD [Primary Care Provider] -
--- NOTE | 2018-06-16 12:36 | Internal Med Progress Note ---
Hospitalist Progress Note - Encounter Date of Encounter: 06/16/18 Time of Encounter: 10:40 - Subjective Interval History: No acute events overnight. Denies any worsening pain over her buttock, fever/chills, nausea/vomiting, chest pain, shortness of breath, or cough. Patient however states that she feels like she has "gained her water weight back". Leukocytosis downtrending. - Exam Vitals: Temp Pulse Resp BP Pulse Ox 98.0 F 83 13 133/76 100 06/16/18 10:41 06/16/18 10:41 06/16/18 10:41 06/16/18 10:41 06/16/18 10:41 Exam: General: Patient is alert, oriented, no acute distress, morbidly obese Respiratory: distant breath sounds but mostly clear Cardiovascular: S1S2, irregular rhythm Abdomen: soft, non-tender Skin: R buttock dressing dry and clean Neuro: No focal deficit - Assessment and Plan (1) Sepsis Current Visit: Yes Status: Acute Assessment and Plan: secondary gluteal cellulitis +/- necrotizing cellulitis underwent I&D initially on 06/10, culture -ve underwent myofascial debridement of the wound 06/14, POD2 Leukocytosis improving on vanc/zosyn, continue while waiting for repeat culture. So far negative appreciate surgery and ID input (2) Cellulitis Current Visit: Yes Status: Acute Assessment and Plan: abx as above s/p myofascial debridement, POD2 follow up on repeat culture (3) ARF (acute renal failure) Current Visit: Yes Status: Resolved Assessment and Plan: most likely secondary to hypotension ( BP trended down on the early AM on 06/12- improved on 06/13) Cr improved with IVF, d/eddy renally dosed abx, avoid nephrotoxic medications will resume lasix continue to hold off HCTZ, lisinopril as BP is normal (4) Cirrhosis Current Visit: Yes Status: Suspected Assessment and Plan: new finding since US liver 08/2016, CT showed mild nodular hepatic contour ?TEIXEIRA given her morbid obesity CTP B7, MELD score 23 no evidence of decompensation, for outpatient hepatology follow up. Discussed in great detail with the patient and his regarding the importance of follow up. (5) Chronic a-fib Current Visit: Yes Status: Chronic Assessment and Plan: continue metoprolol xarelto to remain hold until the wound bed is assessed for bleeding per surgery (6) (HFpEF) heart failure with preserved ejection fraction Current Visit: Yes Status: Chronic Assessment and Plan: currently not in exacerbation resume home dose of lasix (7) Moderate to severe pulmonary hypertension Current Visit: Yes Status: Acute Assessment and Plan: likely due to GABRIEL, repeat sleep study outpatient (8) Hyponatremia Current Visit: Yes Status: Chronic Assessment and Plan: appears to be chronic upon reviewing her labs for the last 3 years, improving may be related to cirrhosis that appears to be new since US in 08/2016 ?steatohepatitis Hold HCTZ for now, lasix resumed as above (9) Morbid obesity Current Visit: No Status: Chronic Assessment and Plan: counseling provided (10) DVT prophylaxis Current Visit: Yes Status: Acute Assessment and Plan: heparin SQ while xarelto is on hold - Time Spent with Patient Total time spent is greater than 50% in coordination of care (as documented) at patient's floor/unit and/or counseling patient: Plan of Care Discussed with: patient Internal Medicine: Result - Labs CBC & Chem 7: 06/16/18 04:12 06/16/18 04:12 Labs: Short CBC 06/16/18 Range/Units 04:12 WBC 12.1 H (4.3-11.1) K/mcL Hgb 11.1 L (11.5-15.4) g/dL Hct 32.9 L (35.3-44.9) % Plt Count 219 (140-400) K/mcL Neutrophils # 9.4 H (1.6-8.9) K/mcL BMP 06/16/18 04:12 Sodium 134 L Potassium 3.9 Chloride 106 Carbon Dioxide 20 L BUN 26 H Creatinine 0.98 Glucose 129 H Calcium 8.1 L - ABG Interpretation ABG results: PT/INR, D-dimer PT 23.9 Seconds (9.4-12.1) H 06/14/18 03:56 Consult Discharge Plan - Plan Referrals: Shravan Hartmann MD [Primary Care Provider] - (1) Sepsis Qualifiers: Sepsis type: sepsis due to unspecified organism Qualified Code(s): A41.9 - Sepsis, unspecified organism (2) Cellulitis Qualifiers: Site of cellulitis: buttock Qualified Code(s): L03.317 - Cellulitis of buttock (3) ARF (acute renal failure) Qualifiers: Acute renal failure type: unspecified Qualified Code(s): N17.9 - Acute kidney failure, unspecified (4) Cirrhosis Qualifiers: Hepatic cirrhosis type: unspecified hepatic cirrhosis Ascites presence: without ascites Qualified Code(s): K74.60 - Unspecified cirrhosis of liver
[2018-06-16] MEDS: Acetaminophen 325 MG TABLET PO PRN (21:30)
[2018-06-17] MEDS: Piperacillin/Tazobactam 3.375 GM in 0.9 % Sodium Chloride Mini Bag 100 ML IVPB SCH ×3 (00:50→17:05)
[2018-06-17 05:52] LABS: Hematocrit 34.8 % (35.3-44.9); Hemoglobin 11.8 g/dL (11.5-15.4); Mean Corpuscular HGB Conc 33.9 g/dL (31.6-35.5); Mean Corpuscular Hemoglobin 32.4 pg (28.0-33.3); Mean Corpuscular Volume 95.6 fL (83.0-100.0); Mean Platelet Volume 9.3 fL (9.4-12.4); Platelet Count 231 K/mcL (140-400); Red Blood Count 3.64 M/mcL (3.82-4.97); Red Cell Distribution Width 13.8 % (11.5-14.5)
[2018-06-17] MEDS: *HR* Heparin 5,000 UNIT/ML VIAL SQ SCH (05:52)
[2018-06-17 06:09] LABS: BUN/Creatinine Ratio 29 (6-26); Blood Urea Nitrogen 29 mg/dL (8-23); Calcium 8.3 mg/dL (8.6-10.3); Carbon Dioxide 23 mEq/L (23-29); Chloride 104 mEq/L (98-107); Glucose 135 mg/dL (70-105); Osmolality,Calculated 286 (280-300); Sodium 134 mEq/L (136-145); eGFR For Non-African Americans 53 (> 60)
[2018-06-17 06:59] LABS: Lymphocytes # 2.7 K/mcL (0.6-4.6); Monocytes # 0.2 K/mcL (0.0-1.3); Neutrophils # 8.4 K/mcL (1.6-8.9); Platelet Estimate Normal (Normal)
[2018-06-17] MEDS: Insulin LISPRO 300 UNITS/3 ML VIAL SQ SCH ×3 (08:41→17:05)
[2018-06-17] MEDS: Metoprolol XL (24 HR) Succ 50 MG TAB.ER.24H PO SCH (08:54)
[2018-06-17] MEDS: Multivit/Ca/Min/Fe/FA 1 TAB TABLET PO SCH (08:55)
[2018-06-17] MEDS ORDERED: Gentamicin Oint 15 GM TUBE TP SCH (09:00)
--- NOTE | 2018-06-17 09:12 | General Surgery Progress Note ---
Date of Encounter: 06/17/18 Time of Encounter: 09:08 - Assessment and Plan (1) Abscess of right buttock Current Visit: Yes Status: Acute s/p bedside I& D and subsequent Myofascial debridement of right buttock wound (8 x 12.[address] Reed on 06/14/2018. Area continues to improve. Cultures negative to date. Wound care: 1) Remove dressing and packing. 2) Shower with antibacterial soap. 3) Apply Gentamycin to the wound beds using a tongue depressor. 4) Apply santyl "efrain" thick to the wound beds using a new tongue depressor. 5) Pack with saline moistened Kerlix. 6) Cover with a dry dressing. 7) Tape to secure. Follow up Dr. Martinez 06/24/2018 0815 for reassessment and consideration for placement of wound vac Antibiotics and OK to restart home AC per primary team; surgery will sign off at this time. thank you for allowing us to participate in Mrs. Carpenter's care. Subjective Patient reports: no new complaints, feels better, still having pain, pain is less, tolerating liquids well, voiding w/o difficulty, flatus, bowel movement, afebrile Objective Vital Signs - Last 8 Hours Temp Pulse Resp BP Pulse Ox 06/17/18 07:32 97.5 F L 78 15 131/80 95 06/17/18 06:12 98.0 F 71 16 129/80 96 Intake and Output 06/16/18 06/17/18 06/17/18 23:59 07:59 15:59 Intake Total 350 / 350 100 / 100 Output Total 100 / 100 750 / 750 Balance 250 / 250 -650 / -650 Intake: IV Fluids 350 / 350 100 / 100 Zosyn 3.375 GM In 0.9 % Sodium 100 / 100 100 / 100 Chloride (Mini-Bag +) 100 ML @ 25 mls/hr IVPB Q8HR [facility] Rx#: [id number] Vancocin 1,250 MG In 0.9 % 250 / 250 Sodium Chloride 250 ML @ 166.67 mls/hr IVPB Q24H [facility] Rx#: [id number] Oral 0 / 0 Output: Urine 100 / 100 750 / 750 Other: Blood Glucose* 163 113 - General physical appearance no distress (sitting upright in chair at bedside) - Eyes normal ocular movement - ENT atraumatic, normocephalic - Neck Neck exam: trachea midline - Respiratory normal expansion, normal respiratory effort, clear to percussion, clear to auscultation - Cardiovascular Cardiovascular exam: Present: distant heart sounds - Abdomen Abdomen: Present: bowel sounds present, soft, non tender - Integumentary other (Right buttock incision noted aprox 8 (w) x12.cm (L) x 5 cm (D); eschar present, wound beds beefy red otherwise.) - Musculoskeletal normal posture - Psychiatric oriented to time, oriented to person, oriented to place, speech is normal, memory intact - Labs 06/17/18 05:35 06/17/18 05:35 Diabetes panel 06/17/18 Range/Units 05:35 Sodium 134 L (136-145) mEq/L Potassium 4.0 (3.5-5.1) mEq/L Chloride 104 (98-107) mEq/L Carbon Dioxide 23 (23-29) mEq/L BUN 29 H (8-23) mg/dL Creatinine 1.01 (0.60-1.20) mg/dL Glucose 135 H (70-105) mg/dL Calcium 8.3 L (8.6-10.3) mg/dL Calcium panel 06/17/18 Range/Units 05:35 Calcium 8.3 L (8.6-10.3) mg/dL Pituitary panel 06/17/18 Range/Units 05:35 Sodium 134 L (136-145) mEq/L Potassium 4.0 (3.5-5.1) mEq/L Chloride 104 (98-107) mEq/L Carbon Dioxide 23 (23-29) mEq/L BUN 29 H (8-23) mg/dL Creatinine 1.01 (0.60-1.20) mg/dL Glucose 135 H (70-105) mg/dL Calcium 8.3 L (8.6-10.3) mg/dL Adrenal panel 06/17/18 Range/Units 05:35 Sodium 134 L (136-145) mEq/L Potassium 4.0 (3.5-5.1) mEq/L Chloride 104 (98-107) mEq/L Carbon Dioxide 23 (23-29) mEq/L BUN 29 H (8-23) mg/dL Creatinine 1.01 (0.60-1.20) mg/dL Glucose 135 H (70-105) mg/dL Calcium 8.3 L (8.6-10.3) mg/dL Consult Discharge Plan - Plan Instructions: Abscess (GEN) Additional Instructions: 1) Remove dressing and packing. 2) Shower with antibacterial soap. 3) Apply Gentamycin to the wound beds using a tongue depressor (or cotton tipped applicator). 4) Apply santyl "efrain" thick to the wound beds using a new tongue depressor. 5) Pack with saline moistened Kerlix. 6) Cover with a dry dressing. 7) Tape to secure. Referrals: Abraham Martinez MD [Partnered Physician] - 06/24/18 8:15 am (IN WOUND CARE) Prescriptions: Collagenase Oint [Santyl] 1 appl TP AD #2 tube Gentamicin Oint [Garamycin] 1 appl TP AD #2 tube
--- NOTE | 2018-06-17 13:09 | Infectious Disease Progress No ---
Date of Encounter: 06/17/18 Time of Encounter: 11:55 - Assessment and Plan (1) Sepsis Current Visit: Yes Status: Acute The patient had 3 sepsis criteria on admission. Likely secondary to necrotizing cellulitis and abscess. Improved clinically. White blood cell count is improved. Tachycardia and tachypnea have resolved. Blood cultures drawn 06/10/18 are negative 2 sets. Recommendations: - Wound care per the surgery team. -May switched to oral Augmentin and doxycycline on discharge treat through 06/27/2018. Discussed with the hospitalist team - Duration of treatment depends on the clinical picture, but likely a total of 14 days post-op. Can switch to Augmentin 875mg PO BID and doxycycline 100mg PO BID to complete the course of treatment when ready for discharge. Treat through 06/27/18. - Monitor renal function and for drug toxicity and dose-adjust antibiotics. Qualifiers: Sepsis type: sepsis due to unspecified organism Qualified Code(s): A41.9 - Sepsis, unspecified organism (2) Necrotizing cellulitis Current Visit: Yes Status: Acute Location: Right gluteal cleft. Etiology: Unclear. Wound and intra-op cultures are negative. CT of the abdomen and pelvis showed subcutaneous straining and gas at the right aspect of the gluteal cleft concerning for necrotizing cellulitis. Gen. surgery consulted. Performed a bedside I&D with no pus noted, but there was necrosis of the wound bed. Wound culture is negative. Status post myofascial debridement 06/13/[address] Reed. Intra-op culture negative. AFB negative. Fungal cultures are pending. Antibiotic recommendations as above. Wound care per the general surgery team. (3) Abscess of right buttock Current Visit: Yes Status: Acute Location: Right buttock. Causative organism unclear. Status post bedside I&D 06/10/[address] Reed. Wound culture is negative. Status post myofascial debridement 06/13/[address] Reed. (4) Chronic a-fib Current Visit: Yes Status: Chronic (5) (HFpEF) heart failure with preserved ejection fraction Current Visit: Yes Status: Chronic (6) Morbid obesity Current Visit: No Status: Chronic (7) Cirrhosis Current Visit: Yes Status: Suspected CT of the abdomen and pelvis showed mildly nodular hepatic contour concerning for cirrhosis. MELD scare 23. Recommend GI to evaluate. Qualifiers: Hepatic cirrhosis type: unspecified hepatic cirrhosis Ascites presence: without ascites Qualified Code(s): K74.60 - Unspecified cirrhosis of liver - Subjective Interval history: Patient seen and examined. No acute events noted overnight. Denies any fevers or chills or rigors. Denies any chest pain, cough, or shortness of breath. She denies any nausea, vomiting, diarrhea, or constipation. She denies abdominal pain, urinary complaints, or appetite changes. She denies any pain at the site of the cellulitis/abscess, but states it is uncomfortable. She denies any oral thrush or new skin lesions. States she feels very swollen in her hips and legs. Infect Dis PN-Objective Data - Labs CBC & Chem 7: 06/17/18 05:35 06/17/18 05:35 Labs: Laboratory Results - last 24 hr 06/16/18 06/16/18 06/16/18 07:13 10:53 15:57 WBC RBC Hgb Hct MCV MCH MCHC RDW Plt Count MPV Seg Neutrophils % Band Neutrophils % Lymphocytes % Monocytes % Neutrophils # Lymphocytes # Monocytes # Platelet Estimate Sodium Potassium Chloride Carbon Dioxide BUN Creatinine Est GFR ( Amer) Est GFR (Non-Af Amer) BUN/Creatinine Ratio Glucose POC Glucose 101 H 90 117 H Calculated Osmolality Calcium Vancomycin Trough 06/16/18 06/16/18 06/17/18 17:02 20:16 05:35 WBC 11.4 H RBC 3.64 L Hgb 11.8 Hct 34.8 L MCV 95.6 MCH 32.4 MCHC 33.9 RDW 13.8 Plt Count 231 MPV 9.3 L Seg Neutrophils % 72.0 Band Neutrophils % 2.0 Lymphocytes % 24.0 Monocytes % 2.0 Neutrophils # 8.4 Lymphocytes # 2.7 Monocytes # 0.2 Platelet Estimate Normal Sodium Potassium Chloride Carbon Dioxide BUN Creatinine Est GFR ( Amer) Est GFR (Non-Af Amer) BUN/Creatinine Ratio Glucose POC Glucose 163 H Calculated Osmolality Calcium Vancomycin Trough 15 H 06/17/18 06/17/18 05:35 07:26 WBC RBC Hgb Hct MCV MCH MCHC RDW Plt Count MPV Seg Neutrophils % Band Neutrophils % Lymphocytes % Monocytes % Neutrophils # Lymphocytes # Monocytes # Platelet Estimate Sodium 134 L Potassium 4.0 Chloride 104 Carbon Dioxide 23 BUN 29 H Creatinine 1.01 Est GFR ( Amer) > 60 Est GFR (Non-Af Amer) 53 L BUN/Creatinine Ratio 29 H Glucose 135 H POC Glucose 113 H Calculated Osmolality 286 Calcium 8.3 L Vancomycin Trough Cultures: Cultures 06/14/18 12:32 Anaerobic Culture - Preliminary Buttock At this time, no anaerobic growth is present. The culture will be finalized after 5 days of incubation. 06/14/18 12:32 Wound Culture - Final Buttock No growth. 06/10/18 12:52 Blood Culture - Final Peripheral Venipuncture No growth. Final report. 06/10/18 12:52 Blood Culture - Final Peripheral Venipuncture No growth. Final report. 06/14/18 12:32 Acid Fast Stain - Final Buttock 06/10/18 20:22 Wound Culture - Final Buttock No growth. Exam - Constitutional Vitals: Temp Pulse Resp BP Pulse Ox 97.8 F 74 15 128/83 91 06/17/18 11:30 06/17/18 11:30 06/17/18 11:30 06/17/18 11:30 06/17/18 11:30 General appearance: cooperative, morbidly obese, no acute distress - Head Head exam: Present: atraumatic, normal inspection, normocephalic - Eye Eye exam: Present: EOMI, normal appearance, PERRL Pupils: Present: normal accommodation - ENT ENT exam: Present: mucous membranes moist - Neck Neck exam: Present: normal inspection - Respiratory Respiratory exam: Present: CTAB. Absent: rales, respiratory distress, rhonchi, wheezes - Cardiovascular Cardiovascular exam: Present: RRR, +S1, +S2 - GI/Abdominal GI/Abdominal exam: Present: distended (obese), normal bowel sounds, soft. Absent: tenderness - Rectal Additional comments: Right gluteal surgical site with dressing C/D/I. No tenderness, warmth, or swelling noted around the dressing. - Neurological Exam Neurological exam: Present: alert, oriented X3, no focal deficits - Psychiatric Psychiatric exam: Present: normal affect, normal mood - Skin Skin exam: Present: dry, intact, normal color, warm Consult Discharge Plan - Plan Instructions: Atrial Fibrillation (DC), Acute Kidney Injury (DC), Cellulitis (DC), Abscess (GEN) Additional Instructions: 1) Remove dressing and packing. 2) Shower with antibacterial soap. 3) Apply Gentamycin to the wound beds using a tongue depressor (or cotton tipped applicator). 4) Apply santyl "efrain" thick to the wound beds using a new tongue depressor. 5) Pack with saline moistened Kerlix. 6) Cover with a dry dressing. 7) Tape to secure. Referrals: Abraham Martinez MD [Partnered Physician] - 06/24/18 8:15 am (IN WOUND CARE) Prescriptions: Amoxicillin/Clavulanate [Augmentin] 875 mg PO BIDWM 11 Days #22 tablet Collagenase Oint [Santyl] 1 appl TP AD #2 tube RX: Doxycycline 100 mg PO BID 11 Days #22 capsule RX: Gentamicin Oint [Garamycin] 1 appl TP AD #2 tube - Attending Attestation I examined this patient and my medical decision-making was reviewed with the Resident Physician. I agree with the documented findings, disposition and treatment plan as described except to the extent set forth below.
[2018-06-17 14:20] VITALS: BP 136/81
--- NOTE | 2018-06-17 15:03 | Discharge Summary ---
- NOTES TO OUTPATIENT PROVIDER Notes to Outpatient Provider: Admitted for sepsis and R gluteal cellulitis/?necrotizing cellulitis. Underwent I&D initially followed by myofascial debridement on 06/14. Both Intra-Op cultures and blood cultures have been negative and she will be discharged home on PO Augmentin/doxycycline through 06/27 per ID. FOllow up with Surgery on 06/24 815am for consideration for VAC. OF note, her imaging of liver was suggestive of cirrhosis which may be attributed it to TEIXEIRA. No signs of decompensation. Will need follow up with hepatology as an outpatient. Orders not resulted at time of discharge: Pending orders 06/11/18 12:16 NM donte perf SPECT multi [NM] Routine 06/14/18 12:32 AFB Culture, Tissue [TB] Stat AFB Smear [TB] Stat Culture,Anaerobic [RM] Routine Fungal Culture [MYC] Stat Date of Encounter: 06/17/18 Time of Encounter: 13:00 - Discharge Diagnosis (1) Sepsis Priority: Primary Status: Acute Qualifiers: Sepsis type: sepsis due to unspecified organism Qualified Code(s): A41.9 - Sepsis, unspecified organism (2) Cellulitis Priority: Secondary Status: Acute Qualifiers: Site of cellulitis: buttock Qualified Code(s): L03.317 - Cellulitis of buttock (3) ARF (acute renal failure) Priority: Secondary Status: Resolved Qualifiers: Acute renal failure type: unspecified Qualified Code(s): N17.9 - Acute kidney failure, unspecified (4) Cirrhosis Priority: Secondary Status: Suspected Qualifiers: Hepatic cirrhosis type: unspecified hepatic cirrhosis Ascites presence: without ascites Qualified Code(s): K74.60 - Unspecified cirrhosis of liver (5) Chronic a-fib Priority: Secondary Status: Chronic (6) (HFpEF) heart failure with preserved ejection fraction Priority: Secondary Status: Chronic (7) Moderate to severe pulmonary hypertension Priority: Secondary Status: Acute (8) Hyponatremia Priority: Secondary Status: Chronic (9) Morbid obesity Priority: Secondary Status: Chronic (10) DVT prophylaxis Priority: Secondary Status: Acute Hospital course: Ms. Carpenter is a 73 year old female with history of A. fib on Xarelto, morbid obesity, was admitted for sepsis secondary to R gluteal cellulitis/?necrotizing cellulitis. Treated with Vanc/Zosyn while inpatient for 7 days and underwent I&D initially followed by myofascial debridement on 06/14. Both Intra-Op cultures and blood cultures have been negative and she will be discharged home on PO Augmentin/doxycycline through 06/27 per ID. Follow up with Surgery on 06/24 815am for consideration for VAC. OF note, her imaging of liver was suggestive of cirrhosis which may be attributed it to TEIXEIRA. No signs of decompensation. Will need follow up with hepatology as an outpatient. Discharge discussed with: patient, human resource consultant (ID and surgery) - Time Spent with Patient Total time spent providing and/or coordinating discharge services: 38 mins - Discharge Medications Prescriptions: Amoxicillin/Clavulanate [Augmentin] 875 mg PO BIDWM 11 Days #22 tablet Collagenase Oint [Santyl] 1 appl TP AD #2 tube Doxycycline 100 mg PO BID 11 Days #22 capsule Gentamicin Oint [Garamycin] 1 appl TP AD #2 tube Home Medications: Atorvastatin Calcium [Lipitor] 20 mg PO QPM 06/10/18 [History] Furosemide [Lasix] 20 mg PO Q48H 06/10/18 [History] Lisinopril [Zestril] 40 mg PO DAILY 06/10/18 [History] Metoprolol Succinate [Toprol Xl] 50 mg PO DAILY 06/10/18 [History] Multivit-Min/FA/Lycopen/Lutein [A Thru Z Select Multivit Tab] 1 tab PO DAILY 06/10/18 [History] Rivaroxaban [Xarelto] 20 mg PO DAILY 06/10/18 [History] Ubidecarenone [Co Q-10] 100 mg PO DAILY 06/10/18 [History] hydroCHLOROthiazide [Hydrochlorothiazide] 25 mg PO DAILY 06/10/18 [History] Amoxicillin/Clavulanate [Augmentin] 875 mg PO BIDWM 11 Days #22 tablet 06/17/18 [Rx] Collagenase Oint [Santyl] 1 appl TP AD #2 tube 06/17/18 [Rx] Doxycycline 100 mg PO BID 11 Days #22 capsule 06/17/18 [Rx] Gentamicin Oint [Garamycin] 1 appl TP AD #2 tube 06/17/18 [Rx] Allergies/Adverse Reactions: Allergy/AdvReac Type Severity Reaction Status Date / Time iodine Allergy Unknown unknown Uncoded 08/07/15 05:00 Date of admission: 06/10/18 18:50 Primary care physician: Shravan Hartmann MD Consults: 06/10/18 16:55 Consult to Surgery [CONS] Stat Consulting Provider: Surgery [facility] Reason for Consult: Cellulitis; air on CT from abcess draining vs necrotizing infection Call Completed: Yes 06/10/18 19:24 Consult to Infectious Diseases [CONS] Routine Consulting Provider: Infectious Disease Jennifer Reason for Consult: cellulitis/ abscess of right glueta region Call Completed: No 06/11/18 09:18 Consult to Cardiology [CONS] Routine Comment: Consulting Provider: Cardiology [place] Reason for Consult: pre op clearance, follows with Dr. sawant as OP Call Completed: No 06/17/18 07:53 Consult to Occupational Therapy [CONS] Routine Comment: Evaluate, develop and implement POC Reason for Consult: deconditioning Does patient have active BEDREST order?: No Is patient medically & hemodynamically stable?: Yes Consult to Physical Therapy [CONS] Routine Comment: Evaluate, develop and implement POC Reason for Consult: deconditioning Does patient have active BEDREST order?: No Is patient medically & hemodynamically stable?: Yes - Constitutional Vitals: Temp Pulse Resp BP Pulse Ox 97.9 F 74 15 136/81 96 06/17/18 14:19 06/17/18 11:30 06/17/18 11:30 06/17/18 14:19 06/17/18 14:19 Exam: General: Patient is alert, oriented, no acute distress, morbidly obese Respiratory: distant breath sounds but mostly clear Cardiovascular: S1S2, irregular rhythm Abdomen: soft, non-tender Skin: R buttock dressing dry and clean Neuro: No focal deficit - Patient Status Disposition: Home, Self-Care Condition: Good Functional capacity at discharge: independent ambulation Overall status at discharge: patient is progressing back to baseline - Discharge Instructions Instructions: Abscess (GEN), Atrial Fibrillation (DC), Cellulitis (DC), Acute Kidney Injury (DC) Follow Up With: Abraham Martinez MD [Partnered Physician] - 06/24/18 8:15 am (IN WOUND CARE) Additional Instructions: 1) Remove dressing and packing. 2) Shower with antibacterial soap. 3) Apply Ge ntamycin to the wound beds using a tongue depressor (or cotton tipped applicator). 4) Apply santyl "efrain" thick to the wound beds using a new tongue depressor. 5) Pack with saline moistened Kerlix. 6) Cover with a dry dressing. 7) Tape to secure. - Diet and Activity Activity: resume usual activities as tolerated Diet: diabetic diet
[2018-06-17] MEDS ORDERED: *HR* Rivaroxaban 10 MG TABLET PO SCH (17:00)
[2018-06-17] MEDS: Acetaminophen 325 MG TABLET PO PRN (18:06)
[2018-06-17] MEDS ORDERED: Aminoglycoside Consult 1 EACH MC ONE (18:23)
== END 2018-06-17 18:24 | disposition home or self-care (01) | DRG 854 ==
LOC: EMEROOARM 11:52 → 3ANU 11:52 → SUATTDRO 18:50 → 3ANU 20:30
PROVIDERS: ADMIT Internal Medicine; ATTEND Internal Medicine

== ENCOUNTER 2018-10-16 10:52 | Inpatient (IN) ==
[2018-10-16] MEDS ORDERED: Furosemide 20 MG/2 ML VIAL IVP ONE (11:22)
--- NOTE | 2018-10-16 11:23 | Emergency Department Note ---
Disposition Clinical Impression: Peripheral edema, Dyspnea on exertion Congestive heart failure Qualifiers: Heart failure type: unspecified Heart failure chronicity: unspecified Qualified Code(s): I50.9 - Heart failure, unspecified Disposition: Admitted As Inpatient Condition: Good Time of Disposition: 14:19 SOB HPI - General Chief Complaint: ED Shortness of Breath/Dyspnea Stated Complaint: Edema Time Seen by Provider: 10/16/18 11:07 Source: patient Mode of arrival: ambulatory Limitations: no limitations Nursing Notes Reviewed: Yes Vital Signs Reviewed: Yes - History of Present Illness 73-year-old female history of pulmonary hypertension, diastolic heart failure, hypertension presents to the emergency department for shortness of breath in swelling. For the past week she is noticed increased swelling to her legs right greater than the left. She is currently being evaluated by her [employer] certified internetwork expert and principal android developer for her pulmonary hypertension and heart failure. She saw her principal android developer today Dr. Goins who center here for further evaluation and likely admission for heart catheterization and diuresis. She currently takes 20 mg daily Lasix. She reports dyspnea on exertion and orthopnea. Denies any cough. Denies any chest pain. Denies any fever. No history of blood clots. She does travel to [place] occasionally most recent trip March. No history of cancer. History of right knee total replacement. She does not take anything for her pulmonary hypertension at this time. She does not require oxygen at baseline. Denies history of cardiac ischemic disease. She does not smoke tobacco. - Related Data Home Medications Medication Instructions Recorded Confirmed Atorvastatin Calcium [Lipitor] 20 mg PO QPM 06/10/18 06/24/18 Furosemide [Lasix] 20 mg PO Q48H 06/10/18 06/24/18 Lisinopril [Zestril] 40 mg PO DAILY 06/10/18 06/24/18 Metoprolol Succinate [Toprol Xl] 50 mg PO DAILY 06/10/18 06/24/18 Multivit-Min/FA/Lycopen/Lutein [A 1 tab PO DAILY 06/10/18 06/24/18 Thru Z Select Multivit Tab] Rivaroxaban [Xarelto] 20 mg PO DAILY 06/10/18 06/24/18 Ubidecarenone [Co Q-10] 100 mg PO DAILY 06/10/18 06/24/18 hydroCHLOROthiazide 25 mg PO DAILY 06/10/18 06/24/18 [Hydrochlorothiazide] Previous Rx's Medication Instructions Recorded Collagenase Oint [Santyl] 1 appl TP AD #2 tube 06/17/18 Gentamicin Oint [Garamycin] 1 appl TP AD #2 tube 06/17/18 Allergies Allergy/AdvReac Type Severity Reaction Status Date / Time iodine Allergy Unknown unknown Uncoded 08/07/15 05:00 All systems ED: reviewed and negative except as stated. Review of Systems: As Per HPI Constitutional: Denies: fever, chills ENT ED: Denies: congestion Cardiovascular: Reports: dyspnea on exertion, orthopnea. Denies: chest pain Respiratory: Reports: dyspnea. Denies: cough, wheezes Gastrointestinal: Denies: abdominal pain, nausea, vomiting Musculoskeletal: Denies: back pain Neurological: Denies: headache Past Medical History - Past Medical History Attestation: Yes The following information was validated with the patient. 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 - Social History Smoking Status: Never smoker Smokeless Tobacco Status: No Alcohol use: Reports: none Drug use: Reports: none Physical Exam - General Limitations: no limitations General appearance: alert, in no apparent distress - Head Head exam: atraumatic, normocephalic, normal inspection - Eye Eye exam: Present: normal appearance, PERRL, EOMI - ENT ENT exam: normal exam, normal oropharynx, mucous membranes moist - Neck Neck exam: Present: normal inspection, full ROM, trachea midline - Chest Chest inspection: Present: normal inspection, symmetric chest wall rise - Respiratory Respiratory exam: Present: respiratory distress (Conversational dyspnea). Absent: wheezes - Cardiovascular Cardiovascular exam: Present: regular rate, normal rhythm, normal heart sounds. Absent: systolic murmur, diastolic murmur - Expanded Cardiovascular Exam Peripheral pulses: 1+: dorsalis pedis (R), dorsalis pedis (L), 2+: radial (R), radial (L) - Abdominal Exam Abdominal exam: Present: soft, Non-Tender, normal bowel sounds. Absent: tenderness, distention, guarding, rebound, rigidity - Extremities Exam Extremities exam: Present: normal inspection, full ROM, pedal edema (+2, R > L). Absent: tenderness - Back Exam Back exam: Present: normal inspection, full ROM. Absent: tenderness - Neurological Exam Neurological exam: Present: alert, oriented X3 - Psychiatric Psychiatric exam: Present: normal affect, normal mood - Skin Skin exam: Present: warm, dry, intact, normal color. Absent: rash, cyanosis, diaphoresis Course Course Narrative: Patient presents with edema and dyspnea. Concern for heart failure. She does have conversational dyspnea on exam. Oxygen saturation is adequate. Was evaluated at cardiology office and sent here for admission. Workup initiated including venous Doppler study of the legs to evaluate for blood clot. Will plan for admission. - Reevaluation(s) Reevaluation #1: Patient was given dose of Lasix here. Her BNP is 547, above baseline. Chest x- ray with cardiomegaly without overt failure. Her other labs or otherwise unremarkable. Troponin less than 0.03. Preliminary venous Doppler ultrasound negative for deep vein thrombosis. At this time patient will be admitted for further evaluation for her leg edema, diastolic heart failure shortness of breath. Time: 13:24 - Consultations Consultation #1: Spoke with on-call hospitalist lakshmi Webb to admit for HALEY, leg edema. No further orders at this time Time: 14:17 Vital Signs Temperature 97.6 F 10/16/18 10:54 Pulse Rate 69 10/16/18 10:54 Respiratory Rate 10/16/18 10:54 Blood Pressure 155/78 10/16/18 10:54 O2 Sat by Pulse Oximetry 93 10/16/18 10:54 Temperature 97.6 F 10/16/18 10:54 Pulse Rate 69 10/16/18 10:54 Respiratory Rate 19 10/16/18 10:54 Blood Pressure 155/78 10/16/18 10:54 O2 Sat by Pulse Oximetry 91 10/16/18 11:43 Oxygen Delivery Oxygen Delivery Room Air Shortness of Breath/Dyspnea - MDM Narrative Medical decision making narrative: Patient was discussed with my attending physician who agrees with ED management and final disposition. They independently evaluated the patient. Please refer to their attestation to this encounter for additional information. This note was generated by [employer] voice recognition software and as a result grammatical or spelling errors may occur using this program. - Medical Records Medical records reviewed: Yes I reviewed the patient's medical records. - Lab Data Lab results reviewed: Yes I reviewed the patient's lab results. Result diagrams: 10/16/18 11:30 10/16/18 11:30 Lab Results 10/16/18 10/16/18 10/16/18 Range/Units 11:30 11:30 11:30 WBC 6.8 (4.3-11.1) K/mcL RBC 4.14 (3.82-4.97) M/mcL Hgb 12.9 (11.5-15.4) g/dL Hct 38.9 (35.3-44.9) % MCV 94.0 (83.0-100.0) fL MCH 31.2 (28.0-33.3) pg MCHC 33.2 (31.6-35.5) g/dL RDW 14.9 H (11.5-14.5) % Plt Count 135 L (140-400) K/mcL MPV 10.5 (9.4-12.4) fL Immature Gran % 0.3 (0-4) % Seg Neutrophils % 66.1 % Lymphocytes % 20.5 % Monocytes % 10.3 % Eosinophils % 2.2 % Basophils % 0.6 % Neutrophils # 4.5 (1.6-8.9) K/mcL Lymphocytes # 1.4 (0.6-4.6) K/mcL Monocytes # 0.7 (0.0-1.3) K/mcL Eosinophils # 0.2 (0.0-0.6) K/mcL Basophils # 0.0 (0.0-0.2) K/mcL Sodium 136 (136-145) mEq/L Potassium 4.2 (3.5-5.1) mEq/L Chloride 99 (98-107) mEq/L Carbon Dioxide 28 (23-29) mEq/L BUN 36 H (8-23) mg/dL Creatinine 1.06 (0.60-1.20) mg/dL Est GFR ( Amer) > 60 (> 60) Est GFR (Non-Af Amer) 51 L (> 60) BUN/Creatinine Ratio 34 H (6-26) Glucose 116 H (70-105) mg/dL Calculated Osmolality 291 (280-300) Calcium 9.5 (8.6-10.3) mg/dL Troponin I < 0.03 (< 0.04) ng/mL B-Natriuretic Peptide 547 H (Less than 100) pg/mL - Radiology Data Radiology results reviewed: Yes I reviewed the patient's radiology results. Chest X-Ray 10/16/18 11:08 IMPRESSION: 1. No acute cardiopulmonary disease. 2. Cardiomegaly, without evidence of failure. D/ / Sergey Jenkins MD / Sergey Jenkins MD Interpreting Provider: Sergey Jenkins MD - EKG Data EKG attestation: Yes I reviewed and interpreted this EKG. EKG results narrative: EKG performed 1116 atrial fibrillation 65 beats per minute, right axis deviation, good R wave progression, no ST elevation or depression. Compared to prior EKG performed 06/11/2018 was similar consistent findings of atrial fibrillation. No acute ischemic changes.
--- NOTE | 2018-10-16 11:44 | Emergency Department Note ---
Disposition Clinical Impression: Congestive heart failure, Peripheral edema, Dyspnea on exertion Disposition: Admitted As Inpatient Condition: Good General Adult HPI - General Chief complaint: ED Shortness of Breath/Dyspnea Stated complaint: Edema Time Seen by Provider: 10/16/18 11:07 Source: patient Mode of arrival: ambulatory Limitations: no limitations - History of Present Illness Pain Scale: 4 - Related Data Home Medications Medication Instructions Recorded Confirmed Atorvastatin Calcium [Lipitor] 20 mg PO QPM 06/10/18 06/24/18 Furosemide [Lasix] 20 mg PO Q48H 06/10/18 06/24/18 Lisinopril [Zestril] 40 mg PO DAILY 06/10/18 06/24/18 Metoprolol Succinate [Toprol Xl] 50 mg PO DAILY 06/10/18 06/24/18 Multivit-Min/FA/Lycopen/Lutein [A 1 tab PO DAILY 06/10/18 06/24/18 Thru Z Select Multivit Tab] Rivaroxaban [Xarelto] 20 mg PO DAILY 06/10/18 06/24/18 Ubidecarenone [Co Q-10] 100 mg PO DAILY 06/10/18 06/24/18 hydroCHLOROthiazide 25 mg PO DAILY 06/10/18 06/24/18 [Hydrochlorothiazide] Previous Rx's Medication Instructions Recorded Collagenase Oint [Santyl] 1 appl TP AD #2 tube 06/17/18 Gentamicin Oint [Garamycin] 1 appl TP AD #2 tube 06/17/18 Allergies Allergy/AdvReac Type Severity Reaction Status Date / Time iodine Allergy Unknown unknown Uncoded 08/07/15 05:00 Constitutional: Denies: fever, chills ENT ED: Denies: congestion Cardiovascular: Reports: dyspnea on exertion, orthopnea. Denies: chest pain Respiratory: Reports: dyspnea. 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 - Social History Smoking Status: Never smoker Smokeless Tobacco Status: No Alcohol use: Reports: none Drug use: Reports: none Physical Exam - General Limitations: no limitations General appearance: alert, in no apparent distress Course Vital Signs Temperature 97.6 F 10/16/18 10:54 Pulse Rate 69 10/16/18 10:54 Respiratory Rate 19 10/16/18 10:54 Blood Pressure 155/78 10/16/18 10:54 O2 Sat by Pulse Oximetry 93 10/16/18 10:54 Temperature 97.6 F 10/16/18 10:54 Pulse Rate 69 10/16/18 10:54 Respiratory Rate 19 10/16/18 10:54 Blood Pressure 155/78 10/16/18 10:54 O2 Sat by Pulse Oximetry 91 10/16/18 11:43 Oxygen Delivery Oxygen Delivery Room Air Medical Decision Making - Lab Data Result diagrams: 10/16/18 11:30 10/16/18 11:30 Lab Results 10/16/18 10/16/18 10/16/18 Range/Units 11:30 11:30 11:30 WBC 6.8 (4.3-11.1) K/mcL RBC 4.14 (3.82-4.97) M/mcL Hgb 12.9 (11.5-15.4) g/dL Hct 38.9 (35.3-44.9) % MCV 94.0 (83.0-100.0) fL MCH 31.2 (28.0-33.3) pg MCHC 33.2 (31.6-35.5) g/dL RDW 14.9 H (11.5-14.5) % Plt Count 135 L (140-400) K/mcL MPV 10.5 (9.4-12.4) fL Immature Gran % 0.3 (0-4) % Seg Neutrophils % 66.1 % Lymphocytes % 20.5 % Monocytes % 10.3 % Eosinophils % 2.2 % Basophils % 0.6 % Neutrophils # 4.5 (1.6-8.9) K/mcL Lymphocytes # 1.4 (0.6-4.6) K/mcL Monocytes # 0.7 (0.0-1.3) K/mcL Eosinophils # 0.2 (0.0-0.6) K/mcL Basophils # 0.0 (0.0-0.2) K/mcL Sodium 136 (136-145) mEq/L Potassium 4.2 (3.5-5.1) mEq/L Chloride 99 (98-107) mEq/L Carbon Dioxide 28 (23-29) mEq/L BUN 36 H (8-23) mg/dL Creatinine 1.06 (0.60-1.20) mg/dL Est GFR ( Amer) > 60 (> 60) Est GFR (Non-Af Amer) 51 L (> 60) BUN/Creatinine Ratio 34 H (6-26) Glucose 116 H (70-105) mg/dL Calculated Osmolality 291 (280-300) Calcium 9.5 (8.6-10.3) mg/dL Troponin I < 0.03 (< 0.04) ng/mL B-Natriuretic Peptide 547 H (Less than 100) pg/mL Critical Care Time Critical Care Time: Yes Total Critical Care Time: 35 Attestation: Critical care performed: Time is exclusive of separately billable procedures. Time includes: direct patient care, patient reassessment, coordination of patient care, interpretation of data (laboratory data, radiology data, and respiratory data), review of patient's medical records, medical consultation and documentation of patient care. Procedures included in critical care time: Procedures excluded from critical care time: Attestation Statement - Attestation Attestation: I examined this patient and my medical decision-making was reviewed with the Resident Physician. I agree with the documented findings, disposition and treatment plan as described except to the extent set forth below. Patient presents to the ED with a chief complaint of pedal edema. Dyspnea on exertion. Sent over from the coper hand's office. She saw Dr. Goins today who sent her here. She states she was sent here to be admitted for IV Lasix. She is taking her home medications by mouth with no improvement of her edema. On exam she has 2+ pitting edema bilaterally. Lungs diminished but clear. Plan. Cardiac workup and admission. Patient admitted to medicine. Chest x-ray clear, but BNP is elevated. Patient given IV Lasix. Chest X-Ray 10/16/18 11:08 IMPRESSION: 1. No acute cardiopulmonary disease. 2. Cardiomegaly, without evidence of failure. D/ / Sergey Jenkins MD / Sergey Jenkins MD Interpreting Provider: Sergey Jenkins MD
[2018-10-16 11:48] LABS: Basophils % 0.6 %; Eosinophils # 0.2 K/mcL (0.0-0.6); Eosinophils % 2.2 %; Hematocrit 38.9 % (35.3-44.9); Hemoglobin 12.9 g/dL (11.5-15.4); Immature Granulocytes % 0.3 % (0-4); Lymphocytes # 1.4 K/mcL (0.6-4.6); Lymphocytes % 20.5 %; Mean Corpuscular HGB Conc 33.2 g/dL (31.6-35.5); Mean Corpuscular Hemoglobin 31.2 pg (28.0-33.3); Mean Platelet Volume 10.5 fL (9.4-12.4); Monocytes # 0.7 K/mcL (0.0-1.3); Monocytes % 10.3 %; Neutrophils # 4.5 K/mcL (1.6-8.9); Platelet Count 135 K/mcL (140-400); Red Blood Count 4.14 M/mcL (3.82-4.97); Red Cell Distribution Width 14.9 % (11.5-14.5); Segmented Neutrophils % 66.1 %
[2018-10-16 12:06] LABS: BUN/Creatinine Ratio 34 (6-26); Blood Urea Nitrogen 36 mg/dL (8-23); Calcium 9.5 mg/dL (8.6-10.3); Carbon Dioxide 28 mEq/L (23-29); Chloride 99 mEq/L (98-107); Glucose 116 mg/dL (70-105); Osmolality,Calculated 291 (280-300); Potassium 4.2 mEq/L (3.5-5.1); Sodium 136 mEq/L (136-145); Troponin I < 0.03 ng/mL (< 0.04); eGFR For Non-African Americans 51 (> 60)
--- NOTE | 2018-10-16 17:19 | Internal Med History&Physical ---
Date of Encounter: 10/16/18 Time of Encounter: 17:19 Internal Medicine - H&P: HPI Chief complaint: LE edema Admitted From: Home Plans for Post Hospital Care: Home History of present illness: Ms. Carpenter is a 73 year old female with past medical history of DM-II (diet controlled per pt), HTN, HLD, pulmonary HTN, CHF, obesity. Pt states she had sleep study in the past and states with if she was prescribed non-invasive she would not use it anyway. Denies ever smoking. Pt reports increasing LE edema and also reports SOB with activity. States she is on Lasix PRN and tried taking it but did not help her edema. She saw her data analysis assistant today Dr. Goins who center here for further evaluation and diuresis. Pt states she was informed she might also get possible heart catheterization. In ED CBC wnl, excep plt 135 BUN 36, Cr 1.06. BNP 547 Chest x ray XR/XR chest 1V portable IMPRESSION: 1. No acute cardiopulmonary disease. 2. Cardiomegaly, without evidence of failure. Venous doppler normal. Past Med Surg Social Fam HX - Past Medical History Medical history: atrial fibrillation, CHF, diabetes, hyperlipidemia, hypertension Psychiatric history: no psych history - Past Surgical History Surgical History: breast surgery, cholecystectomy, hysterectomy, knee replacement Additional surgical history: stomach beck, hernia right side, tummy tuck - Social History Smoking Status: Never smoker Smokeless Tobacco Status: No Alcohol use: none Drug use: none - Family History Mother Family Member Ethnicity: Non- Living Status: Father Living Status: Internal Medicine - H&P: Meds Atorvastatin Calcium [Lipitor] 20 mg PO QPM 06/10/18 [History] Furosemide [Lasix] 20 mg PO DAILY 06/10/18 [History] Lisinopril [Zestril] 40 mg PO DAILY 06/10/18 [History] Metoprolol Succinate [Toprol Xl] 50 mg PO DAILY 06/10/18 [History] Rivaroxaban [Xarelto] 20 mg PO DAILY 06/10/18 [History] Allergy/AdvReac Type Severity Reaction Status Date / Time iodine Allergy Unknown unknown Uncoded 08/07/15 05:00 All Systems PM: A 10-system review of systems was performed and is negative for pertinent findings except as documented above in the HPI. - Constitutional Vitals: Temp Pulse Resp BP Pulse Ox 97.8 F 73 16 136/82 92 10/16/18 15:41 10/16/18 15:41 10/16/18 15:41 10/16/18 15:41 10/16/18 16:28 General appearance: Present: A&O X 3, morbidly obese, no acute distress Exam: . - Head Head exam: Present: atraumatic, normocephalic - Eye Eye exam: Present: PERRL, conjuntiva pink, sclera anicteric Pupils: Present: PERRL - Neck Neck exam general surgery: Present: supple, trachea midline. Absent: lymphaden opathy - Respiratory Respiratory exam: Present: CTAB. Absent: accessory muscle use, rales, rhonchi, wheezes - Cardiovascular Cardiovascular exam: Present: irregular rhythm, +S1, +S2. Absent: diastolic murmur, gallop, rubs, systolic murmur Additional comments: irregularly irregular - GI/Abdominal GI/Abdominal exam: Present: normal bowel sounds, soft, no peritoneal signs. Absent: distended, tenderness - Extremities Exam Extremities exam: Present: pedal edema, warm, radial pulses palpable and symmetrical. Absent: calf tenderness, cyanotic - Neurological Exam Neurological exam: Present: CN II-XII intact, oriented X3, no focal deficits. Absent: pronater drift, facial droop, speech deficit - Skin Skin exam: Present: dry, intact Internal Med - H&P Results - Labs CBC & Chem 7: 10/17/18 02:36 10/17/18 02:36 Labs: Short CBC 10/16/18 Range/Units 11:30 WBC 6.8 (4.3-11.1) K/mcL Hgb 12.9 (11.5-15.4) g/dL Hct 38.9 (35.3-44.9) % Plt Count 135 L (140-400) K/mcL Neutrophils # 4.5 (1.6-8.9) K/mcL BMP 10/16/18 11:30 Sodium 136 Potassium 4.2 Chloride 99 Carbon Dioxide 28 BUN 36 H Creatinine 1.06 Glucose 116 H Calcium 9.5 Cardiac Enzymes 10/16/18 Range/Units 11:30 Troponin I < 0.03 (< 0.04) ng/mL - Impressions ITS Impressions Chest X-Ray 10/16/18 11:08 IMPRESSION: 1. No acute cardiopulmonary disease. 2. Cardiomegaly, without evidence of failure. D/ / Sergey Jenkins MD / Sergey Jenkins MD Interpreting Provider: Sergey Jenkins MD - Assessment and Plan (1) Pulmonary hypertension Current Visit: Yes Status: Acute Assessment and plan: She follow up out pt with Dr. Rogel. She states she has only had one appointment with him so far. Pt was prescribed Lasix QD but states she was only taking it PRN as it made her void a lot and she has to get up frequently. She uses a walker. Will place on IV diuretic for now. Will consider cardiology consult as pt states she was informed by her data analysis assistant that she may need RHC. Echo 06/11/18 EV/EV echocardiogram Impressions: LVEF 65-70%. Normal LV chamber size and systolic function. Mild concentric left ventricular hypertrophy. Indeterminate diastolic function. Normal right ventricular structure and function. Mildly dilated left atrium. Mildly dilated right atrium. Severe mitral posterior leaflet calcification without stenosis. Mild tricuspid regurgitation. Severe pulmonary hypertension. Left Ventricular Wall Motion: Rest Echo Findings All wall segments showed normal motion. (2) (HFpEF) heart failure with preserved ejection fraction Current Visit: Yes Status: Chronic Assessment and plan: Echo results as below. Will consult cardiology in am for CHF as pt wa ssent in by Dr. Herrera. Qualifiers: Qualified Code(s): I50.30 - Unspecified diastolic (congestive) heart failure (3) Chronic a-fib Current Visit: No Status: Chronic Assessment and plan: On Xarelto (4) Essential (primary) hypertension Current Visit: Yes Status: Acute (5) Diabetes mellitus Current Visit: Yes Status: Acute Assessment and plan: Pt state she is diet controlled. Will add SSI insulin for now. Qualifiers: Qualified Code(s): E11.9 - Type 2 diabetes mellitus without complications - Time Spent With Patient Total time spent is greater than 50% in coordination of care (as documented) at patient's floor/unit and/or counseling patient: 25 - 35 minutes
[2018-10-16] MEDS ORDERED: *HR* Dextrose 50 % in Water (Syg) 50 ML SYRINGE IVP PRN (19:37)
[2018-10-16] MEDS ORDERED: D5% in Water 1,000 ML IVC PRN (19:37)
[2018-10-16] MEDS ORDERED: Dextrose Gel 15 GM/37.5 ML TUBE PO PRN ×2 (19:37)
[2018-10-16 21:04] LABS: Estimated Average Glucose 137 mg/dl; Hemoglobin A1C 6.4 %
[2018-10-16] MEDS: Furosemide 40 MG/4 ML VIAL IVP SCH (21:28)
[2018-10-17 03:04] LABS: Basophils % 0.6 %; Eosinophils # 0.2 K/mcL (0.0-0.6); Eosinophils % 2.6 %; Hematocrit 38.2 % (35.3-44.9); Hemoglobin 12.7 g/dL (11.5-15.4); Immature Granulocytes % 0.5 % (0-4); Lymphocytes # 1.3 K/mcL (0.6-4.6); Mean Corpuscular HGB Conc 33.2 g/dL (31.6-35.5); Mean Corpuscular Hemoglobin 31.4 pg (28.0-33.3); Mean Corpuscular Volume 94.6 fL (83.0-100.0); Mean Platelet Volume 10.4 fL (9.4-12.4); Monocytes # 0.7 K/mcL (0.0-1.3); Monocytes % 11.5 %; Neutrophils # 4.2 K/mcL (1.6-8.9); Platelet Count 134 K/mcL (140-400); Red Blood Count 4.04 M/mcL (3.82-4.97); Red Cell Distribution Width 14.8 % (11.5-14.5); Segmented Neutrophils % 64.8 %
[2018-10-17 03:22] LABS: BUN/Creatinine Ratio 33 (6-26); Blood Urea Nitrogen 34 mg/dL (8-23); Calcium 9.3 mg/dL (8.6-10.3); Carbon Dioxide 29 mEq/L (23-29); Chloride 98 mEq/L (98-107); Glucose 116 mg/dL (70-105); Osmolality,Calculated 293 (280-300); Potassium 3.9 mEq/L (3.5-5.1); Sodium 137 mEq/L (136-145); eGFR For Non-African Americans 52 (> 60)
[2018-10-17] MEDS: Insulin LISPRO 300 UNITS/3 ML VIAL SQ SCH ×3 (08:22→17:07)
[2018-10-17] MEDS: Lisinopril 20 MG TABLET PO SCH (08:49)
[2018-10-17] MEDS: Furosemide 40 MG/4 ML VIAL IVP SCH ×2 (08:50→17:07)
[2018-10-17] MEDS: Metoprolol XL (24 HR) Succ 50 MG TAB.ER.24H PO SCH (08:50)
--- NOTE | 2018-10-17 10:33 | Electrocardiograph Report ---
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
--- NOTE | 2018-10-17 13:14 | Internal Med Progress Note ---
Hospitalist Progress Note - Encounter Date of Encounter: 10/17/18 Time of Encounter: 13:01 - Subjective Interval History: Pt denies chest pain or SOB at rest. She denies fever, chills, N/v or diarrhea. - Exam Vitals: Temp Pulse Resp BP Pulse Ox 97.7 F 75 16 117/80 91 10/17/18 10:52 10/17/18 10:52 10/17/18 10:52 10/17/18 10:52 10/17/18 10:52 Exam: General appearance: Present: A&O X 3, morbidly obese, no acute distress Exam: Head exam: Present: atraumatic, normocephalic Eye exam: Present: PERRL, conjuntiva pink, sclera anicteric Pupils: Present: PERRLA Neck exam general surgery: Present: supple, trachea midline. Absent: lymphadenopathy Respiratory exam: Present: CTAB. Absent: accessory muscle use, rales, rhonchi, wheezes Cardiovascular exam: Present: irregular rhythm, +S1, +S2. Absent: diastolic mur mur, gallop, rubs, systolic murmur irregularly irregular GI/Abdominal exam: Present: normal bowel sounds, soft, no peritoneal signs. Absent: distended, tenderness Extremities exam: Present: 3+ pedal edema, warm, radial pulses palpable and symmetrical. Absent: calf tenderness, cyanotic Neurological exam: Present: CN II-XII intact, oriented X3, no focal deficits. Absent: pronater drift, facial droop, speech deficit Skin exam: Present: dry, intact - Assessment and Plan (1) Pulmonary hypertension Current Visit: Yes Status: Acute Assessment and Plan: She follows up out pt with Dr. Rogel. She states she has only had one appointment with him so far. Pt was prescribed Lasix QD but states she was only taking it PRN as it made her void a lot and she has to get up frequently. She uses a walker. Currently on IV diuretic for now. Cardiology consulted to see as pt states she was informed by her gas appliance adjuster that she may need RHC. Echo 06/11/18 EV/EV echocardiogram Impressions: LVEF 65-70%. Normal LV chamber size and systolic function. Mild concentric left ventricular hypertrophy. Indeterminate diastolic function. Normal right ventricular structure and function. Mildly dilated left atrium. Mildly dilated right atrium. Severe mitral posterior leaflet calcification without stenosis. Mild tricuspid regurgitation. Severe pulmonary hypertension. Left Ventricular Wall Motion: Rest Echo Findings All wall segments showed normal motion. (2) (HFpEF) heart failure with preserved ejection fraction Current Visit: Yes Status: Chronic Assessment and Plan: Echo results as below. Consulting cardiology for CHF and pulmonary HTN. (3) Chronic a-fib Current Visit: No Status: Chronic Assessment and Plan: On Xarelto (4) Essential (primary) hypertension Current Visit: Yes Status: Acute Assessment and Plan: Lisinopril and Metoprolol. (5) Diabetes mellitus Current Visit: Yes Status: Acute Assessment and Plan: Pt state she is diet controlled. Will add SSI insulin for now. DVT Prophylaxis: Xarelto - Time Spent with Patient Total time spent is greater than 50% in coordination of care (as documented) at patient's floor/unit and/or counseling patient: less than 15 minutes Plan of Care Discussed with: patient Internal Medicine: Result - Labs CBC & Chem 7: 10/17/18 02:36 10/17/18 02:36 Labs: Short CBC 10/17/18 Range/Units 02:36 WBC 6.5 (4.3-11.1) K/mcL Hgb 12.7 (11.5-15.4) g/dL Hct 38.2 (35.3-44.9) % Plt Count 134 L (140-400) K/mcL Neutrophils # 4.2 (1.6-8.9) K/mcL BMP 10/17/18 02:36 Sodium 137 Potassium 3.9 Chloride 98 Carbon Dioxide 29 BUN 34 H Creatinine 1.03 Glucose 116 H Calcium 9.3 Cardiac Enzymes 10/16/18 10/17/18 10/17/18 Range/Units 20:02 02:36 07:36 Troponin I < 0.03 < 0.03 < 0.03 (< 0.04) ng/mL Consult Discharge Plan - Plan Referrals: Shravan Hartmann MD [Primary Care Provider] - (2) (HFpEF) heart failure with preserved ejection fraction Qualifiers: Qualified Code(s): I50.30 - Unspecified diastolic (congestive) heart failure (5) Diabetes mellitus Qualifiers: Qualified Code(s): E11.9 - Type 2 diabetes mellitus without complications
--- NOTE | 2018-10-17 14:23 | Cardiology Consult Note ---
<Pratik Key - Last Filed: 10/17/18 15:17> Date of Encounter: 10/17/18 Time of Encounter: 14:27 Assessment and Plan (1) Pulmonary hypertension Current Visit: Yes Status: Acute Severe pulmonary HTN noted on Echo from 06/11/18 Likely type 2 with atrial fibrillation, diastolic heart failure, and HTN Also has history of GABRIEL but refused treatment with CPAP as recommended in 2016 stating "I wouldn't like that on my face" Plan: - evaluate sleep again while inpatient and qualify for CPAP/BiPAP as needed - Will ambulate pt for 6 minute walk test to evaluate both oxygen requirement and HR for afib control - Continue diuresis at this time - Strict I&Os - Defer RHC at this time until other factors such as GABRIEL are evaluated and treat ed (2) (HFpEF) heart failure with preserved ejection fraction Current Visit: Yes Status: Chronic Most recent echo 06/11/19 with the following findings: - LVEF 65-70% - Mild LV hypertrophy with indeterminate diastolic function - Mildly dilate right and left atria - Severe mitral posterior leaflet calcification without stnosis - Mild tricuspid regurg - Severe pulmonary HTN Diurese as above Continue home Lisinopril, Toprol, and statin Qualifiers: Heart failure chronicity: chronic Qualified Code(s): I50.32 - Chronic diastolic (congestive) heart failure (3) Essential (primary) hypertension Current Visit: Yes Status: Acute Currently controlled at 117/80 while resting Continue home Lisinopril and toprol (4) Diabetes mellitus Current Visit: Yes Status: Acute Management per primary Hgb A1c during admission 6.4 Qualifiers: Diabetes mellitus type: type 2 Diabetes mellitus senior care insulin use: without senior care use Diabetes mellitus complication status: without complication Qualified Code(s): E11.9 - Type 2 diabetes mellitus without complications (5) Atrial fibrillation Current Visit: Yes Status: Acute Currently rate controlled Continue Xarelto and Metoprolol Qualifiers: Atrial fibrillation type: chronic Qualified Code(s): I48.2 - Chronic atrial fibrillation (6) GABRIEL (obstructive sleep apnea) Current Visit: Yes Status: Acute Sleep study in 2016 recommended treatment with CPAP, however pt refused at that time Re-evaluation as above (7) Morbid obesity Current Visit: Yes Status: Chronic Chronic issue Discussion w patient/family: The assessment and plan as outlined above was discussed with the patient and/or family members who expressed understanding and agreement. All questions were answered. Thank you for involving us in the care of your patient. Please call with any questions. History of Present Illness Consult date: 10/17/18 Requesting physician: Porsha Torres Consult reason: Severe pulmonary HTN Chief complaint: Leg Edema History of present illness: Ms. Carpenter is a 73 year old female with PMH of DM2, HTN, Afib, HLD, and pulmonary hypertension. She was originally admitted on 10/16/[address] Goins in outpatient office. Her appointment with Dr. Goins was for RHC planning for the severe pulmonary hypertension noted on echocardiogram from 05/2018. At that time he suggested inpatient diuresis due to significant volume overload with possible RHC prior to discharge. Pt seen and examined at bedside. Pt states she is able to ambulate more easily today compared to yesterday. States normally she is able to ambulate with her walker around the house without difficulty, however recently she has felt she is unable to ambulate more that 10 feet without difficulty. Also complaining of increased lower extremity edema particularly on the plantar aspect of her feet. States today she has improved towards her normal baseline after diuresis, but is not at her baseline currently. Past Med Surg Social Fam HX - Past Medical History Medical history: atrial fibrillation, CHF, diabetes, hyperlipidemia, hypertension Psychiatric history: no psych history - Past Surgical History Surgical History: breast surgery, cholecystectomy, hysterectomy, knee replacement Additional surgical history: stomach beck, hernia right side, tummy tuck - Social History Smoking Status: Never smoker Smokeless Tobacco Status: No Alcohol use: none Drug use: none - Family History Mother Family Member Ethnicity: Non- Living Status: Father Living Status: Medications and Allergies Atorvastatin Calcium [Lipitor] 20 mg PO QPM 06/10/18 [History] Furosemide [Lasix] 20 mg PO DAILY 06/10/18 [History] Lisinopril [Zestril] 40 mg PO DAILY 06/10/18 [History] Metoprolol Succinate [Toprol Xl] 50 mg PO DAILY 06/10/18 [History] Rivaroxaban [Xarelto] 20 mg PO DAILY 06/10/18 [History] Allergy/AdvReac Type Severity Reaction Status Date / Time iodine Allergy Unknown unknown Uncoded 01/09/16 05:00 All Systems Review: The remainder of the systems were reviewed and are negative - Constitutional Constitutional: no chills, no fever(s), no night sweats - EENT Eyes: no blurred vision, no loss of vision - Cardiovascular Cardiovascular: dyspnea at rest, dyspnea on exertion, leg edema, no chest pain at rest, no chest pain with exertion, no diaphoresis, no lightheadedness, no palpitations, no rapid heart rate - Respiratory Respiratory: dyspnea, no cough, no hemoptysis, no wheezing - Gastrointestinal Gastrointestinal: no abdominal pain, no constipation, no diarrhea, no hematemesis, no hematochezia, no melena, no nausea - Genitourinary Genitourinary: no dysuria, no hematuria - Musculoskeletal Musculoskeletal: no back pain - Integumentary Integumentary: no erythema, no rash, no unusual bruising - Neurological Neurological: no dizziness, no numbness, no tingling - Hematological/Lymphatic Hematologic/Lymphatic: no easy bleeding, no easy bruising Physical Examination Vital Signs, Last 4 Hours Temp Pulse Resp BP Pulse Ox 10/17/18 10:52 97.7 F 75 16 117/80 91 General: Conversant, No Apparent Distress HEENT: Atraumatic, Normocephaly, Mucus Membranes Moist Neck: No JVD, Normal carotid pulses Cardiac: Reg Rate and Rhythm, Normal S1 and S2, No Murmur Lungs: Normal Breath Sounds, No Wheeze, Rales, Rhonchi Neuro: Alert and responsive, No focal deficits noted Abdomen: Soft, Non-Tender Skin: No rashes noted on visualized skin Musculoskeletal: No Chest Wall Tenderness Extremities: No Clubbing, No Cyanosis, Normal Pulses, Other (Significant LE edema ) Results 10/17/18 02:36 10/17/18 02:36 Lab Results 10/16/18 10/17/18 10/17/18 20:02 02:36 02:36 WBC 6.5 Hgb 12.7 Hct 38.2 Plt Count 134 L Sodium 137 Potassium 3.9 Chloride 98 Carbon Dioxide 29 BUN 34 H Creatinine 1.03 Glucose 116 H Calcium 9.3 Troponin I < 0.03 10/17/18 10/17/18 02:36 07:36 WBC Hgb Hct Plt Count Sodium Potassium Chloride Carbon Dioxide BUN Creatinine Glucose Calcium Troponin I < 0.03 < 0.03 - Imaging and Cardiology Chest Xray: report reviewed, image reviewed Stress Test: report reviewed Echo: report reviewed - EKG Interpretation EKG results cardiology: personally reviewed, other (afib with ventricular rate of 65) Consult Discharge Plan - Plan Referrals: Shravan Hartmann MD [Primary Care Provider] - <Cruz Aguirre - Last Filed: 10/17/18 18:42> Date of Encounter: 10/17/18 - Attending Attestation I examined this patient and my medical decision-making was reviewed with the Resident Physician. I agree with the documented findings, disposition and treatment plan as described except to the extent set forth below. CC: Shortness of breath, increased lower ext swelling HPI: Pt reports several week history of increasing shortness of breath and lower extremity swelling, with progressivily increasing dyspnea with exertion. Pt notes has been unable to walk greater than fifty feet due to shortness of breath over last six months, unable to walk ten feet last three days prior to admission before she would have to stop to catch her breath. She notes her heart races with minimal activity, although her )2 sat has stayed above 90. She has preciously been diagnosed with GABRIEL, however refused to wear CPAP despite sleep medicine recommendations. She has known pulmonary hypertension, PA pressures 60 to 70 systolic, and has been referred for right heart cath which she has refused up to this point. She reports is breathing much easier since hospital admission, ROS: reviewed PMH: reviewed Labs, Xrays, EKGs, tele reviewed PE: pt seen and examined, agree with findings as documented. IMP/Plan: 1. Acute decompensation of acute on chronic diastolic heart failure, responding to gentle diuresis, I&O inaccurate but is down 3 kg, breathing much easier, would continue IV diuretics for now. 2. GABRIEL: not treated, suspect chronic hypoxia is contributing to pulmonary hypertension, will monitor with nocturnal pulse oximetry tonight, suspect will qualify for at least O2 supplement at night. 3. Pulmonary hypertension: severe, suspect has component of and chronic hypoxia, will delay Rt heart cath until eval and tx for GABRIEL implemented. 4. : at least moderate per dopplers, suspect may be more severe with updated monitoring. 5. Benign essential hypertension; adequate control on current meds. Assessment and Plan Discussion w patient/family: The assessment and plan as outlined above was discussed with the patient and/or family members who expressed understanding and agreement. All questions were answered. Thank you for involving us in the care of your patient. Please call with any questions. History of Present Illness History of present illness: Ms. Carpenter is a 73 year old female All Systems Review: The remainder of the systems were reviewed and are negative Physical Examination Vital Signs, Last 4 Hours Temp Pulse Resp BP Pulse Ox 10/17/18 15:43 97.9 F 75 16 124/82 95 Results 10/17/18 02:36 10/17/18 02:36 Lab Results 10/16/18 10/17/18 10/17/18 20:02 02:36 02:36 WBC 6.5 Hgb 12.7 Hct 38.2 Plt Count 134 L Sodium 137 Potassium 3.9 Chloride 98 Carbon Dioxide 29 BUN 34 H Creatinine 1.03 Glucose 116 H Calcium 9.3 Troponin I < 0.03 10/17/18 10/17/18 02:36 07:36 WBC Hgb Hct Plt Count Sodium Potassium Chloride Carbon Dioxide BUN Creatinine Glucose Calcium Troponin I < 0.03 < 0.03
[2018-10-17] MEDS: *HR* Rivaroxaban 10 MG TABLET PO SCH (17:07)
[2018-10-18 04:47] LABS: Basophils % 0.6 %; Eosinophils # 0.3 K/mcL (0.0-0.6); Eosinophils % 4.2 %; Hematocrit 34.8 % (35.3-44.9); Hemoglobin 12.1 g/dL (11.5-15.4); Immature Granulocytes % 0.3 % (0-4); Lymphocytes # 1.5 K/mcL (0.6-4.6); Lymphocytes % 21.8 %; Mean Corpuscular HGB Conc 34.8 g/dL (31.6-35.5); Mean Corpuscular Hemoglobin 32.3 pg (28.0-33.3); Mean Corpuscular Volume 92.8 fL (83.0-100.0); Mean Platelet Volume 9.8 fL (9.4-12.4); Monocytes # 0.9 K/mcL (0.0-1.3); Platelet Count 129 K/mcL (140-400); Red Blood Count 3.75 M/mcL (3.82-4.97); Red Cell Distribution Width 14.8 % (11.5-14.5); Segmented Neutrophils % 60.1 %
[2018-10-18 05:06] LABS: Calcium 8.9 mg/dL (8.6-10.3); Potassium 3.5 mEq/L (3.5-5.1)
[2018-10-18] MEDS: Insulin LISPRO 300 UNITS/3 ML VIAL SQ SCH ×3 (08:02→16:50)
[2018-10-18] MEDS: Metoprolol XL (24 HR) Succ 50 MG TAB.ER.24H PO SCH (08:12)
[2018-10-18] MEDS: Furosemide 40 MG/4 ML VIAL IVP SCH ×2 (08:12→17:30)
[2018-10-18] MEDS: Lisinopril 20 MG TABLET PO SCH (08:12)
--- NOTE | 2018-10-18 10:10 | Cardiology Progress Note ---
<Pratik Key - Last Filed: 10/18/18 15:10> Date of Encounter: 10/18/18 Time of Encounter: 10:08 Assessment and Plan (1) Pulmonary hypertension Current Visit: Yes Status: Acute Severe pulmonary HTN noted on Echo from 06/11/18 Likely type 2 with atrial fibrillation, diastolic heart failure, and HTN Also has history of GABRIEL but refused treatment with CPAP as recommended in 2016 stating "I wouldn't like that on my face" Plan: - Continue supplemental O2 while sleeping, will likely require formal sleep eval after discharge - Stop Toprol and start Sotalol 40mg BID. Afib is not rate controlled when pt ambulates - Continue diuresis at this time - Strict I&Os - Defer RHC at this time until other factors such as GABRIEL are evaluated and treated (2) Atrial fibrillation Current Visit: Yes Status: Chronic Rate controlled at rest, however HR increases to 130s while ambulating Continue Xarelto Stop Metoprolol Start Sotalol 40mg q12HR in the setting of renal impairment Qualifiers: Atrial fibrillation type: chronic Qualified Code(s): I48.2 - Chronic atrial fibrillation (3) (HFpEF) heart failure with preserved ejection fraction Current Visit: Yes Status: Chronic Most recent echo 06/11/19 with the following findings: - LVEF 65-70% - Mild LV hypertrophy with indeterminate diastolic function - Mildly dilate right and left atria - Severe mitral posterior leaflet calcification without stnosis - Mild tricuspid regurg - Severe pulmonary HTN Diurese as above Continue home Lisinopril, Toprol, and statin Qualifiers: Heart failure chronicity: chronic Qualified Code(s): I50.32 - Chronic diastolic (congestive) heart failure (4) Essential (primary) hypertension Current Visit: Yes Status: Acute Currently controlled at 114/74 while resting Continue home Lisinopril and toprol (5) Diabetes mellitus Current Visit: Yes Status: Acute Management per primary Hgb A1c during admission 6.4 Qualifiers: Diabetes mellitus type: type 2 Diabetes mellitus fci insulin use: without fci use Diabetes mellitus complication status: without complicat ion Qualified Code(s): E11.9 - Type 2 diabetes mellitus without complications (6) GABRIEL (obstructive sleep apnea) Current Visit: Yes Status: Acute Sleep study in 2016 recommended treatment with CPAP, however pt refused at that time Continue supplemental O2 while sleeping as above (7) Morbid obesity Current Visit: Yes Status: Chronic Chronic issue Discussion w patient/family: The assessment and plan as outlined above was discussed with the patient and/or family members who expressed understanding and agreement. All questions were answered. Thank you for involving us in the care of your patient. Please call with any questions. Subjective Principal diagnosis: Severe pulmonary HTN Interval history: Pt seen and examined at bedside. She wore the supplemental O2 overnight without difficulty. States she continues to feel improvement in her edema and shortness of breath while ambulating, but admits she is still not quite back to her baseline. Denies any chest pain, chest pressure, increased cough, abdominal pain, syncope, headaches, numbness, or tingling. Objective Vital Signs, Last 4 Hours Temp Pulse Resp BP Pulse Ox 10/18/18 07:40 98.0 F 67 16 114/74 97 General: Conversant, No Apparent Distress HEENT: Atraumatic, Normocephaly, Mucus Membranes Moist Neck: No JVD, Normal carotid pulses Cardiac: Reg Rate and Rhythm, Normal S1 and S2, No Murmur Lungs: Normal Breath Sounds, No Wheeze, Rales, Rhonchi Neuro: Alert and responsive, No focal deficits noted Abdomen: Soft, Non-Tender Skin: No rashes noted on visualized skin Musculoskeletal: No Chest Wall Tenderness Extremities: No Clubbing, No Cyanosis, Normal Pulses, Other (Significant but improved edema in bilateral LEs ) Results 10/18/18 04:29 10/18/18 04:29 Lab Results 10/18/18 10/18/18 04:29 04:29 WBC 6.7 Hgb 12.1 Hct 34.8 L Plt Count 129 L Sodium 137 Potassium 3.5 Chloride 98 Carbon Dioxide 32 H BUN 32 H Creatinine 1.08 Glucose 111 H Calcium 8.9 Consult Discharge Plan - Plan Referrals: Shravan Hartmann MD [Primary Care Provider] - <Cruz Aguirre - Last Filed: 10/20/18 09:23> Date of Encounter: 10/18/18 Time of Encounter: 14:00 Assessment and Plan Discussion w patient/family: The assessment and plan as outlined above was discussed with the patient and/or family members who expressed understanding and agreement. All questions were answered. Thank you for involving us in the care of your patient. Please call with any questions. Objective Vital Signs, Last 4 Hours Temp Pulse Resp BP Pulse Ox 10/20/18 07:31 98.0 F 60 14 110/68 92 Results 10/19/18 06:44 10/19/18 07:18 Attestation Statement - Attestation Attestation: I examined this patient and my medical decision-making was reviewed with the Resident Physician. I agree with the documented findings, disposition and treatment plan as described except to the extent set forth below. CC: shortness of breath HPI: Less short of breath at rest, still very short of breath, feels her heart race with ambulating to bathroom. She notes some improvement in lower extremity edema. ROS: reviewed PMH: reviewec Labs, Xrays, pulse ox reviewed PE: pt seen and examined, agree with findings as documented. IMP/Plan: 1. A fib with RVR, ventricular rate not fully controlled with ambulation, will switch from metoprolol to sotalol, continue to monitor 2. GABRIEL: not treated, significant nocturnal hypoxia, will defer to sleep medicine, may benefit from nocturnal oxygen supplement,
--- NOTE | 2018-10-18 12:41 | Internal Med Progress Note ---
Hospitalist Progress Note - Encounter Date of Encounter: 10/18/18 Time of Encounter: 12:41 - Subjective Interval History: PT feels OK, stated that swelling of her feet better, and more likely to walk now I told her about PALMA wrapping - Exam Vitals: Temp Pulse Resp BP Pulse Ox 97.7 F 71 16 114/72 99 10/18/18 11:02 10/18/18 11:02 10/18/18 11:02 10/18/18 11:02 10/18/18 11:02 Exam: General appearance: Present: A&O X 3, morbidly obese, no acute distress Exam: Head exam: Present: atraumatic, normocephalic Eye exam: Present: PERRL, conjuntiva pink, sclera anicteric Pupils: Present: PERRLA Neck exam general surgery: Present: supple, trachea midline. Absent: lymphadenopathy Respiratory exam: Present: CTAB. Absent: accessory muscle use, rales, rhonchi, wheezes Cardiovascular exam: Present: irregular rhythm, +S1, +S2. Absent: diastolic murmur, gallop, rubs, systolic murmur irregularly irregular GI/Abdominal exam: Present: normal bowel sounds, soft, no peritoneal signs. Absent: distended, tenderness Extremities exam: Present: 3+ pedal edema, warm, radial pulses palpable and symmetrical. Absent: calf tenderness, cyanotic Neurological exam: Present: CN II-XII intact, oriented X3, no focal deficits. Absent: pronater drift, facial droop, speech deficit Skin exam: Present: dry, intact DVT Prophylaxis: Xarelto - Summary of Assessment and Plan Summary of Assessment and Plan: (1) Pulmonary hypertension Current Visit: Yes Status: Acute Assessment and Plan: She follows up out pt with Dr. Rogel. She states she has only had one appointment with him so far. Pt was prescribed Lasix QD but states she was only taking it PRN as it made her void a lot and she has to get up frequently. She uses a walker. Currently on IV diuretic for now. Cardiology consulted to see as pt states she was informed by her flight communications operator that she may need RHC. NO RHC at this moment, mecially optizing and pt will need lasix to go home with. (2) (HFpEF) heart failure with preserved ejection fraction Current Visit: Yes Status: Chronic Assessment and Plan: Echo results as below. Consulting cardiology for CHF and pulmonary HTN. Cont strict I and O's. (3) Chronic a-fib Current Visit: No Status: Chronic Assessment and Plan: On Xarelto (4) Essential (primary) hypertension Current Visit: Yes Status: Acute Assessment and Plan: Lisinopril and Metoprolol. (5) Dispo: Lungs clear, doing well, likley d/c home with PO lasix 40 BID and liberabl fluid restriciton needs PALMA wrap. Time:3 5min - Time Spent with Patient Total time spent is greater than 50% in coordination of care (as documented) at patient's floor/unit and/or counseling patient: Internal Medicine: Result - Labs CBC & Chem 7: 10/18/18 04:29 10/18/18 04:29 Labs: Short CBC 10/18/18 Range/Units 04:29 WBC 6.7 (4.3-11.1) K/mcL Hgb 12.1 (11.5-15.4) g/dL Hct 34.8 L (35.3-44.9) % Plt Count 129 L (140-400) K/mcL Neutrophils # 4.0 (1.6-8.9) K/mcL BMP 10/18/18 04:29 Sodium 137 Potassium 3.5 Chloride 98 Carbon Dioxide 32 H BUN 32 H Creatinine 1.08 Glucose 111 H Calcium 8.9 Consult Discharge Plan - Plan Referrals: Shravan Hartmann MD [Primary Care Provider] -
[2018-10-18 16:51] LABS: ABG Base Excess 9 mEq/L (-2 to 3); ABG HCO3 33 mEq/L (21-27); ABG Oxygen Saturation 90 % (95-98); ABG PCO2 42 mmHg (35-45); ABG PH 7.51 pH Units (7.32-7.45); ABG PO2 53 mmHg (85-104); ABG TCO2 35 mEq/L (20-26)
[2018-10-18] MEDS: *HR* Rivaroxaban 10 MG TABLET PO SCH (17:30)
[2018-10-19 07:35] LABS: Basophils % 0.7 %; Eosinophils # 0.2 K/mcL (0.0-0.6); Eosinophils % 3.5 %; Hematocrit 35.9 % (35.3-44.9); Hemoglobin 12.1 g/dL (11.5-15.4); Immature Granulocytes % 0.2 % (0-4); Lymphocytes # 1.3 K/mcL (0.6-4.6); Lymphocytes % 22.3 %; Mean Corpuscular HGB Conc 33.7 g/dL (31.6-35.5); Mean Corpuscular Hemoglobin 31.7 pg (28.0-33.3); Mean Platelet Volume 10.3 fL (9.4-12.4); Monocytes # 0.8 K/mcL (0.0-1.3); Monocytes % 13.5 %; Neutrophils # 3.6 K/mcL (1.6-8.9); Platelet Count 130 K/mcL (140-400); Red Blood Count 3.82 M/mcL (3.82-4.97); Red Cell Distribution Width 14.7 % (11.5-14.5); Segmented Neutrophils % 59.8 %
[2018-10-19 07:52] LABS: BUN/Creatinine Ratio 29 (6-26); Blood Urea Nitrogen 29 mg/dL (8-23); Calcium 8.8 mg/dL (8.6-10.3); Carbon Dioxide 32 mEq/L (23-29); Chloride 96 mEq/L (98-107); Glucose 103 mg/dL (70-105); Osmolality,Calculated 288 (280-300); Potassium 3.4 mEq/L (3.5-5.1); Sodium 136 mEq/L (136-145); eGFR For Non-African Americans 55 (> 60)
[2018-10-19] MEDS: Insulin LISPRO 300 UNITS/3 ML VIAL SQ SCH ×3 (07:57→17:12)
[2018-10-19] MEDS: Lisinopril 20 MG TABLET PO SCH (07:58)
[2018-10-19] MEDS: Furosemide 40 MG/4 ML VIAL IVP SCH ×2 (07:58→17:13)
[2018-10-19 08:04] LABS: BUN/Creatinine Ratio 29 (6-26); Blood Urea Nitrogen 29 mg/dL (8-23); Calcium 8.9 mg/dL (8.6-10.3); Carbon Dioxide 30 mEq/L (23-29); Chloride 96 mEq/L (98-107); Glucose 109 mg/dL (70-105); Osmolality,Calculated 286 (280-300); Potassium 3.6 mEq/L (3.5-5.1); Sodium 135 mEq/L (136-145); eGFR For Non-African Americans 55 (> 60)
--- NOTE | 2018-10-19 09:42 | Cardiology Progress Note ---
Date of Encounter: 10/19/18 Time of Encounter: 09:40 Assessment and Plan (1) Atrial fibrillation Current Visit: Yes Status: Chronic Hx of documented chronic A-Fib. Rate controlled at rest with HR increasing to 130s while ambulating Per Dr. Aguirre, he recommended stopping Metoprolol and starting Sotalol 40mg q12HR, reduced dose d/t renal impairment--started evening 10/18. Baseline ECG 10/16/18 A-Fib, rate 65, QT/QTc 435/453ms. ECG 10/19/18 s/p 2 doses, A-Fib, rate 71, QT/QTc 416/439ms. Needs daily ECGs and monitored x 5 doses. Anticoagulated on Xarelto--unsure if she has missed doses in past 30 days. If pt remains in A-Fib after 5 doses, will plan for KAL/DCCV Sunday in attempt to restore SR. Continue to follow. Qualifiers: Atrial fibrillation type: chronic Qualified Code(s): I48.2 - Chronic atrial fibrillation (2) Pulmonary hypertension Current Visit: Yes Status: Acute Severe pulmonary HTN noted on Echo from 06/11/18. Likely type 2 with atrial fibrillation, diastolic heart failure, and HTN Also has history of GABRIEL but refused treatment with CPAP as recommended in 2016. Continue supplemental O2 while sleeping, will likely require formal sleep eval after discharge. Defer RHC at this time until other factors such as GABRIEL are evaluated and treated. (3) (HFpEF) heart failure with preserved ejection fraction Current Visit: Yes Status: Chronic Known hx of diastolic CHF. TTE 06/11/18 LVEF 65-70%. Mild LVH with indeterminate diastolic function. Mildly dilate right and left atria. Severe mitral posterior leaflet calcification without stenosis. Mild tricuspid regurg. Severe pulmonary HTN. BNP 547. CXR no acute findings. On IV Lasix 40mg BID. BLE wrapped with moderate edema. Recommend strict I/Os, Na and fluid restriction, daily weights. Qualifiers: Heart failure chronicity: chronic Qualified Code(s): I50.32 - Chronic diastolic (congestive) heart failure Discussion w patient/family: The assessment and plan as outlined above was discussed with the patient and/or family members who expressed understanding and agreement. All questions were answered. Thank you for involving us in the care of your patient. Please call with any questions. I will discuss all the above with Dr. Aguirre and make changes as necessary. Subjective Principal diagnosis: Severe pulmonary HTN Interval history: No acute complaints this AM. Objective Vital Signs, Last 4 Hours Temp Pulse Resp BP Pulse Ox 10/19/18 07:29 97.6 F 65 16 110/66 99 Vital Signs Temp Pulse Resp BP Pulse Ox 10/19/18 07:29 97.6 F 65 16 110/66 99 10/19/18 04:00 97.9 F 68 16 110/65 97 10/19/18 00:20 97.6 F 69 16 98/65 98 10/18/18 21:47 97.3 F L 68 18 128/82 98 10/18/18 16:04 98.0 F 77 18 128/77 98 10/18/18 11:02 97.7 F 71 16 114/72 99 Intake and Output 10/18/18 10/19/18 10/19/18 23:59 07:59 15:59 Intake Total 240 / 240 240 / 240 Output Total 200 / 200 600 / 600 Balance 40 / 40 -600 / -600 240 / 240 Intake: Oral 240 / 240 240 / 240 Output: Urine 200 / 200 600 / 600 Other: Meal Dinner Breakfast Percent of Meal Consumed 100% 100% # Voids 1 1 Blood Glucose* 125 105 General: Conversant, No Apparent Distress HEENT: Atraumatic, Normocephaly, Mucus Membranes Moist Cardiac: Other (irregularly irregular) Lungs: Other (diminished) Neuro: Alert and responsive, No focal deficits noted Abdomen: Soft, Non-Tender Skin: No rashes noted on visualized skin Musculoskeletal: No Chest Wall Tenderness Extremities: Other (BLE edema, wrapped.) Results 10/19/18 06:44 10/19/18 07:18 Lab Results 10/19/18 10/19/18 10/19/18 06:44 06:44 07:18 WBC 6.0 Hgb 12.1 Hct 35.9 Plt Count 130 L Sodium 136 135 L Potassium 3.4 L 3.6 Chloride 96 L 96 L Carbon Dioxide 32 H 30 H BUN 29 H 29 H Creatinine 0.99 0.99 Glucose 103 109 H Calcium 8.8 8.9 Short CBC 10/19/18 Range/Units 06:44 WBC 6.0 (4.3-11.1) K/mcL Hgb 12.1 (11.5-15.4) g/dL Hct 35.9 (35.3-44.9) % Plt Count 130 L (140-400) K/mcL Neutrophils # 3.6 (1.6-8.9) K/mcL BMP 10/19/18 10/19/18 Range/Units 07:18 06:44 Sodium 135 L 136 (136-145) mEq/L Potassium 3.6 3.4 L (3.5-5.1) mEq/L Chloride 96 L 96 L (98-107) mEq/L Carbon Dioxide 30 H 32 H (23-29) mEq/L BUN 29 H 29 H (8-23) mg/dL Creatinine 0.99 0.99 (0.60-1.20) mg/dL Glucose 109 H 103 (70-105) mg/dL Calcium 8.9 8.8 (8.6-10.3) mg/dL Active Medications Atorvastatin Calcium (Lipitor) 20 mg PO QPM [facility] Stop: 04/17/19 18:01 Last Admin: 10/18/18 17:29 Dose: 20 mg Dextrose/Water (Dextrose 50% (Syg)) 25 ml IVP AD PRN PRN Reason: Hypoglycemia Stop: 04/17/19 19:38 Furosemide (Lasix) 40 mg IVP BIDDIURETIC [facility] Stop: 04/17/19 21:01 Last Admin: 10/19/18 07:58 Dose: 40 mg Glucagon (Glucagen) 1 mg IM ONCE PRN PRN Reason: Hypoglycemia Stop: 04/17/19 19:38 Glucose (Gluctose) 15 gm PO ONCE PRN PRN Reason: Hypoglycemia Stop: 04/17/19 19:38 Glucose (Gluctose) 30 gm PO ONCE PRN PRN Reason: Hypoglycemia Stop: 04/17/19 19:38 Dextrose (Dextrose 5%) 1,000 mls @ 100 mls/hr IVC .Q10H PRN PRN Reason: HYPOGLYCEMIA Stop: 04/17/19 19:38 Insulin Human Lispro (Humalog) 0 units SQ TIDAC [facility]; Protocol Stop: 04/18/19 07:31 Last Admin: 10/19/18 07:57 Dose: Not Given Lisinopril (Zestril) 40 mg PO DAILY [facility] Stop: 04/18/19 09:01 Last Admin: 10/19/18 07:58 Dose: Not Given Rivaroxaban (Xarelto) 20 mg PO 1700 [facility] Stop: 04/18/19 17:01 Last Admin: 10/18/18 17:30 Dose: 20 mg Sotalol HCl (Betapace) 40 mg PO Q12HR [facility] Stop: 04/19/19 18:01 Last Admin: 10/19/18 06:05 Dose: 40 mg - Imaging and Cardiology Echo: report reviewed - EKG Interpretation EKG results cardiology: other (12 hr tele AVG HR 69, A-Fib) Consult Discharge Plan - Plan Referrals: Shravan Hartmann MD [Primary Care Provider] -
--- NOTE | 2018-10-19 11:41 | Internal Med Progress Note ---
Hospitalist Progress Note - Encounter Date of Encounter: 10/19/18 Time of Encounter: 11:39 - Exam Vitals: Temp Pulse Resp BP Pulse Ox 98.7 F 79 16 112/73 100 10/19/18 11:04 10/19/18 11:04 10/19/18 11:04 10/19/18 11:04 10/19/18 11:04 Exam: General appearance: Present: A&O X 3, morbidly obese, no acute distress Exam: Head exam: Present: atraumatic, normocephalic Eye exam: Present: PERRL, conjuntiva pink, sclera anicteric Pupils: Present: PERRLA Neck exam general surgery: Present: supple, trachea midline. Absent: lymphadenopathy Respiratory exam: Present: CTAB. Absent: accessory muscle use, rales, rhonchi, wheezes Cardiovascular exam: Present: irregular rhythm, +S1, +S2. Absent: diastolic murmur, gallop, rubs, systolic murmur irregularly irregular GI/Abdominal exam: Present: normal bowel sounds, soft, no peritoneal signs. Absent: distended, tenderness Extremities exam: Present: 3+ pedal edema, warm, radial pulses palpable and symmetrical. Absent: calf tenderness, cyanotic Neurological exam: Present: CN II-XII intact, oriented X3, no focal deficits. Absent: pronater drift, facial droop, speech deficit Skin exam: Present: dry, intact DVT Prophylaxis: Xarelto - Summary of Assessment and Plan Summary of Assessment and Plan: (1) Pulmonary hypertension Current Visit: Yes Status: Acute Assessment and Plan: She follows up out pt with Dr. Rogel. She states she has only had one appointment with him so far. Pt was prescribed Lasix QD but states she was only taking it PRN as it made her void a lot and she has to get up frequently. She uses a walker. Currently on IV diuretic for now. Cardiology consulted to see as pt states she was informed by her coin machine collector that she may need RHC. NO RHC at this moment, mecially optizing and pt will need lasix to go home with. (2) (HFpEF) heart failure with preserved ejection fraction Current Visit: Yes Status: Chronic Assessment and Plan: Echo results as below. Consulting cardiology for CHF and pulmonary HTN. Cont strict I and O's. (3) Chronic a-fib pt was discontinued on metoprolol and started on sotalol Pt is planning for DC cardioversion Sunday. --deffered to cardiology (4) Essential (primary) hypertension Current Visit: Yes Status: Acute Assessment and Plan: Lisinopril and Metoprolol. (5) Dispo: Waiting for cardiology for cardioversion planning and get Afib get better control then d/c, loading sotalol. Time: 35 min - Time Spent with Patient Total time spent is greater than 50% in coordination of care (as documented) at patient's floor/unit and/or counseling patient: Internal Medicine: Result - Labs CBC & Chem 7: 10/19/18 06:44 10/19/18 07:18 Labs: Short CBC 10/19/18 Range/Units 06:44 WBC 6.0 (4.3-11.1) K/mcL Hgb 12.1 (11.5-15.4) g/dL Hct 35.9 (35.3-44.9) % Plt Count 130 L (140-400) K/mcL Neutrophils # 3.6 (1.6-8.9) K/mcL BMP 10/19/18 10/19/18 06:44 07:18 Sodium 136 135 L Potassium 3.4 L 3.6 Chloride 96 L 96 L Carbon Dioxide 32 H 30 H BUN 29 H 29 H Creatinine 0.99 0.99 Glucose 103 109 H Calcium 8.8 8.9 - ABG Interpretation ABG results: ABG ABG pH 7.51 pH Units (7.32-7.45) H 10/18/18 16:48 ABG pCO2 42 mmHg (35-45) 10/18/18 16:48 ABG pO2 53 mmHg (85-104) L 10/18/18 16:48 ABG O2 Saturation 90 % (95-98) L 10/18/18 16:48 Consult Discharge Plan - Plan Referrals: Shravan Hartmann MD [Primary Care Provider] -
[2018-10-19] MEDS: *HR* Rivaroxaban 10 MG TABLET PO SCH (17:14)
[2018-10-20] MEDS: Insulin LISPRO 300 UNITS/3 ML VIAL SQ SCH ×3 (07:44→16:06)
[2018-10-20] MEDS: Lisinopril 20 MG TABLET PO SCH (09:05)
[2018-10-20] MEDS: Furosemide 40 MG/4 ML VIAL IVP SCH ×2 (09:05→16:09)
--- NOTE | 2018-10-20 09:59 | Internal Med Progress Note ---
Hospitalist Progress Note - Encounter Date of Encounter: 10/20/18 Time of Encounter: 09:57 - Subjective Interval History: Pt feels well, asked about how long should wrap the savanah. - Exam Vitals: Temp Pulse Resp BP Pulse Ox 98.0 F 60 14 110/68 92 10/20/18 07:31 10/20/18 07:31 10/20/18 07:31 10/20/18 07:31 10/20/18 09:30 Exam: General appearance: Present: A&O X 3, morbidly obese, no acute distress Exam: Head exam: Present: atraumatic, normocephalic Eye exam: Present: PERRL, conjuntiva pink, sclera anicteric Pupils: Present: PERRLA Neck exam general surgery: Present: supple, trachea midline. Absent: lymphadenopathy Respiratory exam: Present: CTAB. Absent: accessory muscle use, rales, rhonchi, wheezes Cardiovascular exam: Present: irregular rhythm, +S1, +S2. Absent: diastolic murmur, gallop, rubs, systolic murmur irregularly irregular GI/Abdominal exam: Present: normal bowel sounds, soft, no peritoneal signs. Absent: distended, tenderness Extremities exam: Present: 3+ pedal edema, warm, radial pulses palpable and symmetrical. Absent: calf tenderness, cyanotic Neurological exam: Present: CN II-XII intact, oriented X3, no focal deficits. Absent: pronater drift, facial droop, speech deficit Skin exam: Present: dry, intact DVT Prophylaxis: Xarelto - Summary of Assessment and Plan Summary of Assessment and Plan: (1) Pulmonary hypertension Current Visit: Yes Status: Acute Assessment and Plan: She follows up out pt with Dr. Rogel. She states she has only had one appointment with him so far. Pt was prescribed Lasix QD but states she was only taking it PRN as it made her void a lot and she has to get up frequently. She uses a walker. Currently on IV diuretic for now. Cardiology consulted to see as pt states she was informed by her office runner that she may need RHC. NO RHC at this moment, mecially optizing and pt will need lasix to go home with. Pt has currently on sotalol loading, once pt has no prolonged QT, then pt is ready to be discharged. (2) (HFpEF) heart failure with preserved ejection fraction Current Visit: Yes Status: Chronic Assessment and Plan: Echo results as below. Consulting cardiology for CHF and pulmonary HTN. Cont strict I and O's. (3) Chronic a-fib pt was discontinued on metoprolol and started on sotalol Pt is planning for DC cardioversion Sunday. --deffered to cardiology (4) Essential (primary) hypertension Current Visit: Yes Status: Acute Assessment and Plan: Lisinopril and Metoprolol. (5) Dispo: Loading sotalol, await cardiolgoy to agree the pt to go home. Time: 35 min - Time Spent with Patient Total time spent is greater than 50% in coordination of care (as documented) at patient's floor/unit and/or counseling patient: Internal Medicine: Result - Labs CBC & Chem 7: 10/19/18 06:44 10/19/18 07:18 - ABG Interpretation ABG results: ABG ABG pH 7.51 pH Units (7.32-7.45) H 10/18/18 16:48 ABG pCO2 42 mmHg (35-45) 10/18/18 16:48 ABG pO2 53 mmHg (85-104) L 10/18/18 16:48 ABG O2 Saturation 90 % (95-98) L 10/18/18 16:48 Consult Discharge Plan - Plan Referrals: Shravan Hartmann MD [Primary Care Provider] -
--- NOTE | 2018-10-20 10:22 | Cardiology Progress Note ---
Date of Encounter: 10/20/18 Time of Encounter: 10:17 Assessment and Plan (1) Atrial fibrillation Current Visit: Yes Status: Chronic Hx of documented chronic A-Fib. Rate controlled at rest with HR increasing to 130s while ambulating. Anticoagulated on Xarelto. Per Dr. Aguirre, he recommended stopping Metoprolol and starting Sotalol 40mg q12HR, reduced dose d/t renal impairment--started evening 10/18. Pt is s/p 4 doses, remains A-Fib. 12 hr tele AVG HR 67. 6 minute walk test completed this AM, HR increased to 90s with ambulation, improved. Dr. Aguirre is using Sotalol for rate control only. 5th Sotalol dose will be this evening. Recommend ECG after 5th dose and if QTC <500ms, okay for d/c. QTc has remained stable, as below. Baseline ECG 10/16/18 A-Fib, rate 65, QT/QTc 435/453ms. ECG 10/19/18 s/p 2 doses, A-Fib, rate 71, QT/QTc 416/439ms. ECG 10/20/18 s/p 4 doses, A-Fib, rate 64, QT/QTc 424/433ms. Cardiology signing off. Reconsult PRN. Will coordinate outpt follow-up in 2-3 weeks. Qualifiers: Atrial fibrillation type: chronic Qualified Code(s): I48.2 - Chronic atrial fibrillation (2) Pulmonary hypertension Current Visit: Yes Status: Acute Severe pulmonary HTN noted on Echo from 06/11/18. Likely type 2 with atrial fibrillation, diastolic heart failure, and HTN Also has history of GABRIEL but refused treatment with CPAP as recommended in 2016. Continue supplemental O2 while sleeping, will likely require formal sleep eval after discharge. Defer RHC at this time until other factors such as GABRIEL are evaluated and treated. (3) (HFpEF) heart failure with preserved ejection fraction Current Visit: Yes Status: Chronic Known hx of diastolic CHF. TTE 06/11/18 LVEF 65-70%. Mild LVH with indeterminate diastolic function. Mildly dilate right and left atria. Severe mitral posterior leaflet calcification without stenosis. Mild tricuspid regurg. Severe pulmonary HTN. BNP 547. CXR no acute findings. On IV Lasix 40mg BID. BLE wrapping has helped, currently with mild edema. Recommend strict I/Os, Na and fluid restriction, daily weights. Continue wr apping. Transition to PO Lasix prior to d/c. Qualifiers: Heart failure chronicity: chronic Qualified Code(s): I50.32 - Chronic diastolic (congestive) heart failure Discussion w patient/family: The assessment and plan as outlined above was discussed with the patient and/or family members who expressed understanding and agreement. All questions were answered. Thank you for involving us in the care of your patient. Please call with any questions. I will discuss all the above with Dr. Aguirre and make changes as necessary. Subjective Principal diagnosis: Severe pulmonary HTN Interval history: No acute complaints this AM. Objective Vital Signs, Last 4 Hours Temp Pulse Resp BP Pulse Ox 10/20/18 10:13 96 10/20/18 09:30 92 10/20/18 07:31 98.0 F 60 14 110/68 92 Vital Signs Temp Pulse Resp BP Pulse Ox 10/20/18 10:13 96 10/20/18 09:30 92 10/20/18 07:31 98.0 F 60 14 110/68 92 10/20/18 03:43 98.4 F 70 18 108/65 92 10/19/18 23:15 98 F 71 18 114/68 96 10/19/18 19:12 97.8 F 71 18 97/68 92 10/19/18 15:04 97.9 F 69 16 148/55 92 10/19/18 11:04 98.7 F 79 16 112/73 100 Intake and Output 10/19/18 10/20/18 10/20/18 23:59 07:59 15:59 Intake Total 340 / 340 Output Total 900 / 900 800 / 800 0 / 0 Balance -560 / -560 -800 / -800 0 / 0 Intake: Oral 340 / 340 Output: Urine 900 / 900 800 / 800 0 / 0 Other: Meal Dinner Percent of Meal Consumed 100% Weight 100 kg Blood Glucose* 122 95 General: Conversant, No Apparent Distress HEENT: Atraumatic, Normocephaly, Mucus Membranes Moist Neck: No JVD, Normal carotid pulses Cardiac: Other (irregularly irregular) Lungs: Other (diminished) Neuro: Alert and responsive, No focal deficits noted Abdomen: Soft, Non-Tender Skin: No rashes noted on visualized skin Musculoskeletal: No Chest Wall Tenderness Extremities: Other (mild BLE edema) Results 10/19/18 06:44 10/19/18 07:18 Active Medications Atorvastatin Calcium (Lipitor) 20 mg PO QPM [facility] Stop: 04/17/19 18:01 Last Admin: 10/19/18 17:14 Dose: 20 mg Dextrose/Water (Dextrose 50% (Syg)) 25 ml IVP AD PRN PRN Reason: Hypoglycemia Stop: 04/17/19 19:38 Furosemide (Lasix) 40 mg IVP BIDDIURETIC [facility] Stop: 04/17/19 21:01 Last Admin: 10/20/18 09:05 Dose: 40 mg Glucagon (Glucagen) 1 mg IM ONCE PRN PRN Reason: Hypoglycemia Stop: 04/17/19 19:38 Glucose (Gluctose) 15 gm PO ONCE PRN PRN Reason: Hypoglycemia Stop: 04/17/19 19:38 Glucose (Gluctose) 30 gm PO ONCE PRN PRN Reason: Hypoglycemia Stop: 04/17/19 19:38 Dextrose (Dextrose 5%) 1,000 mls @ 100 mls/hr IVC .Q10H PRN PRN Reason: HYPOGLYCEMIA Stop: 04/17/19 19:38 Insulin Human Lispro (Humalog) 0 units SQ TIDAC [facility]; Protocol Stop: 04/18/19 07:31 Last Admin: 10/20/18 07:44 Dose: Not Given Lisinopril (Zestril) 40 mg PO DAILY [facility] Stop: 04/18/19 09:01 Last Admin: 10/20/18 09:05 Dose: 40 mg Rivaroxaban (Xarelto) 20 mg PO 1700 [facility] Stop: 04/18/19 17:01 Last Admin: 10/19/18 17:14 Dose: 20 mg Sotalol HCl (Betapace) 40 mg PO Q12HR [facility] Stop: 04/19/19 18:01 Last Admin: 10/20/18 05:11 Dose: 40 mg - EKG Interpretation EKG results cardiology: other (12 hr tele AVG HR 67, A-Fib) Consult Discharge Plan - Plan Referrals: Shravan Hartmann MD [Primary Care Provider] -
[2018-10-20] MEDS: *HR* Rivaroxaban 10 MG TABLET PO SCH (16:08)
--- NOTE | 2018-10-20 17:10 | Discharge Summary ---
- NOTES TO OUTPATIENT PROVIDER Notes to Outpatient Provider: CP p2-5 days for BMP recheck, call and fax restulst to PCP office; card in 2 weeks; savanah wrap tight bilat ankle to knee each morning and take off each night; 2.0 L fluid restriciton, keep legs elevated at all times Orders not resulted at time of discharge: Pending orders 10/20/18 04:00 Comprehensive Metabolic Panel AM 04010/20/18 18:00 ECG 12 lead ECG [ECG] Routine 10/21/18 04:00 Comprehensive Metabolic Panel AM 04010/22/18 04:00 Comprehensive Metabolic Panel AM 0400 10/23/18 04:00 Comprehensive Metabolic Panel AM 04010/24/18 04:00 Comprehensive Metabolic Panel AM 040 Date of Encounter: 10/20/18 Time of Encounter: 17:07 - Discharge Diagnosis (1) Congestive heart failure Priority: Primary Status: Acute Qualifiers: Heart failure type: diastolic Heart failure chronicity: unspecified Qualified Code(s): I50.30 - Unspecified diastolic (congestive) heart failure Hospital course: Ms. Carpenter is a 73 year old female with past medical history of DM-II (diet controlled per pt), HTN, HLD, pulmonary HTN, CHF, obesity. Pt states she had sleep study in the past and states with if she was prescribed non-invasive she would not use it anyway. Denies ever smoking. Pt reports increasing LE edema and also reports SOB with activity. States she is on Lasix PRN and tried taking it but did not help her edema. Pt was kept in the hospoital and pt was diagnosed with pulm HTN, and found to have afib difficult to control. pt was started on metoprolol and then switched to sotalol and pt did well on it. If ok with cardiolgoy, pt then will be discharged. I talked to the pt about savanah wraps and in addition to keep legs elevated at all times. Pt's lungs are clear currently, mild 1+ pitting edema. Discharge discussed with: patient - Time Spent with Patient Total time spent providing and/or coordinating discharge services: - Discharge Medications Prescriptions: New Furosemide [Lasix] 40 mg PO BID #60 tab Sotalol [Betapace] 40 mg PO Q12HR #30 tablet Continue Atorvastatin Calcium [Lipitor] 20 mg PO QPM Discontinued Metoprolol Succinate [Toprol Xl] 50 mg PO DAILY Furosemide [Lasix] 20 mg PO DAILY No Action Rivaroxaban [Xarelto] 20 mg PO DAILY Lisinopril [Zestril] 40 mg PO DAILY Home Medications: Atorvastatin Calcium [Lipitor] 20 mg PO QPM 06/10/18 [History] Lisinopril [Zestril] 40 mg PO DAILY 06/10/18 [History] Rivaroxaban [Xarelto] 20 mg PO DAILY 06/10/18 [History] Furosemide [Lasix] 40 mg PO BID #60 tab 10/20/18 [Rx] Sotalol [Betapace] 40 mg PO Q12HR #30 tablet 10/20/18 [Rx] Allergies/Adverse Reactions: Allergy/AdvReac Type Severity Reaction Status Date / Time iodine Allergy Unknown unknown Uncoded 08/07/15 05:00 Date of admission: 10/17/18 09:20 Primary care physician: Shravan Hartmann MD Consults: 10/16/18 17:16 Consult to Cardiac Rehabilitation-Phase1 [CONS] Routine Comment: Reason for Consult: heart failure Call Completed: Yes Consult to Nurse Navigator [CONS] Routine Comment: 10/17/18 12:13 Consult to Cardiology [CONS] Routine Comment: Consulting Provider: Cardiology Jennifer Reason for Consult: severe pulmonary HTN, ? RHC Call Completed: Yes 10/18/18 12:39 PT [Consult to Physical Therapy] [CONS] Routine Comment: Evaluate, develop and implement POC Reason for Consult: debility Does patient have active BEDREST order?: No Is patient medically & hemodynamically stable?: Yes 10/18/18 12:40 OT [Consult to Occupational Therapy] [CONS] Routine Comment: Evaluate, develop and implement POC Reason for Consult: deblity Does patient have active BEDREST order?: No Is patient medically & hemodynamically stable?: Yes - Constitutional Vitals: Temp Pulse Resp BP Pulse Ox 98.1 F 70 16 131/61 97 10/20/18 16:06 10/20/18 16:06 10/20/18 16:06 10/20/18 16:06 10/20/18 16:06 General appearance: Present: A&O X 3, morbidly obese, no acute distress Exam: General appearance: Present: A&O X 3, morbidly obese, no acute distress Exam: Head exam: Present: atraumatic, normocephalic Eye exam: Present: PERRL, conjuntiva pink, sclera anicteric Pupils: Present: PERRLA Neck exam general surgery: Present: supple, trachea midline. Absent: lymphadenopathy Respiratory exam: Present: CTAB. Absent: accessory muscle use, rales, rhonchi, wheezes Cardiovascular exam: Present: irregular rhythm, +S1, +S2. Absent: diastolic murmur, gallop, rubs, systolic murmur irregularly irregular GI/Abdominal exam: Present: normal bowel sounds, soft, no peritoneal signs. Absent: distended, tenderness Extremities exam: Present: 3+ pedal edema, warm, radial pulses palpable and symmetrical. Absent: calf tenderness, cyanotic Neurological exam: Present: CN II-XII intact, oriented X3, no focal deficits. Absent: pronater drift, facial droop, speech deficit Skin exam: Present: dry, intact - Patient Status Disposition: Home, Self-Care Condition: Good - Discharge Instructions Follow Up With: Shravan Hartmann MD [Primary Care Provider] -
[2018-10-21 05:13] LABS: Albumin 3.4 g/dL (3.5-5.7); Albumin/Globulin Ratio 1.3 (1.1-2.2); Bilirubin,Total 1.1 mg/dL (0.3-1.0); Calcium 8.8 mg/dL (8.6-10.3); Globulin 2.6 g/dL (2.4-3.5); Potassium 3.4 mEq/L (3.5-5.1)
[2018-10-21] MEDS: Insulin LISPRO 300 UNITS/3 ML VIAL SQ SCH ×2 (07:44→10:52)
[2018-10-21] MEDS: Lisinopril 20 MG TABLET PO SCH (08:19)
--- NOTE | 2018-10-21 10:15 | Physician Discharge Referral ---
Home Health/Hosp Referral Info Transfer to: Home Health (home oxygen 2 L continuously) - Diagnosis (1) Congestive heart failure Priority: Primary Status: Acute - Respiratory Orders Oxygen / L per min (2 L) Smoking Cessation: Smoking cessation has been advised. For more information, call the [place] Tobacco Quit Line at 0-806-JIAO-NOW. - Transfer Medications Prescriptions: Sotalol [Betapace] 40 mg PO Q12HR #30 tablet Furosemide [Lasix] 40 mg PO BID #60 tab Home Medications: Atorvastatin Calcium [Lipitor] 20 mg PO QPM 06/10/18 [History] Lisinopril [Zestril] 40 mg PO DAILY 06/10/18 [History] Rivaroxaban [Xarelto] 20 mg PO DAILY 06/10/18 [History] Furosemide [Lasix] 40 mg PO BID #60 tab 10/20/18 [Rx] Sotalol [Betapace] 40 mg PO Q12HR #30 tablet 10/20/18 [Rx] Allergies/Adverse Reactions: Allergy/AdvReac Type Severity Reaction Status Date / Time iodine Allergy Unknown unknown Uncoded 08/07/15 05:00 Certification: Further, I certify that my clinical findings support that this patient is homebound (i.e. absences from home require considerable and taxing effort and are for medical reasons or scientologist services or infrequently or short duration when for other reasons) because: Homebound Reason: Patient requires assistance of a person or device to safely leave home Attestation: My signature below is to certify that this patient is under my care and that I, or nurse practitioner, or a physician's insurance legal assistant working with me, has a [id number] encounter with this patient.
[2018-10-21 10:53] VITALS: BP 102/58
--- NOTE | 2018-10-21 17:52 | Electrocardiograph Report ---
[place] [id number] Test Date: 2018-10-20 Pat Name: Shellie Carpenter Department: 112 Room: 2A12 Gender: F [employer]: : [id number] Requested By: Greg Whatley Order Number: [id number] Reading MD: Adelaida Billings Measurements Intervals [place] Rate: 74 P: [place]: 0 QRS: 102 QRSD: 90 T: -17 QT: 397 QTc: 424 Interpretive Statements ATRIAL FIBRILLATION RIGHT AXIS DEVIATION NONSPECIFIC ST & T-WAVE ABNORMALITY Electronically Signed On 10-21-2018 17:51:05 EDT by Adelaida Billings
== END 2018-10-21 16:27 | disposition home or self-care (01) | DRG 293 ==
LOC: EMEROOARM 10:52 → 2ANU 10:52 → SUATTDRO 10-17 09:20
PROVIDERS: ADMIT Internal Medicine; ATTEND Internal Medicine

== ENCOUNTER 2020-03-27 03:54 | Inpatient (IN) ==
[2020-03-27] MEDS ORDERED: Ondansetron 4 MG/2 ML VIAL IVP ONE (04:33)
[2020-03-27 05:01] LABS: Bilirubin,Urine Negative (Negative); Blood,Urine Negative (Negative); Clarity,Urine Clear (Clear); Color,Urine Light-Yellow (Yellow); Glucose,Urine (UA) Normal (Normal); Ketones,Urine Trace mg/dL (Negative); Leukocyte Esterase,Urine Negative (Negative); Nitrite,Urine Negative (Negative); Protein,Urine Negative (Neg-Trace); Specific Gravity,Urine 1.017 (1.010-1.025); Urobilinogen,Urine Normal (Normal)
[2020-03-27 05:03] LABS: Basophils # 0.1 K/mcL (0.0-0.2); Basophils % 0.7 %; Eosinophils # 0.4 K/mcL (0.0-0.6); Eosinophils % 4.3 %; Hematocrit 42.7 % (35.3-44.9); Hemoglobin 14.4 g/dL (11.5-15.4); Immature Granulocytes % 0.4 % (0-4); Lymphocytes # 1.5 K/mcL (0.6-4.6); Lymphocytes % 17.6 %; Mean Corpuscular HGB Conc 33.7 g/dL (31.6-35.5); Mean Corpuscular Volume 97.9 fL (83.0-100.0); Mean Platelet Volume 10.3 fL (9.4-12.4); Monocytes # 0.9 K/mcL (0.0-1.3); Monocytes % 10.7 %; Neutrophils # 5.5 K/mcL (1.6-8.9); Platelet Count 186 K/mcL (140-400); Red Blood Count 4.36 M/mcL (3.82-4.97); Red Cell Distribution Width 12.7 % (11.5-14.5); Segmented Neutrophils % 66.3 %; White Blood Count 8.2 K/mcL (4.3-11.1)
[2020-03-27] MEDS ORDERED: Isovue-370 500 ML BOTTLE IVP ONE (05:15)
[2020-03-27 05:19] LABS: Albumin 4.1 g/dL (3.5-5.7); Albumin/Globulin Ratio 1.4 (1.1-2.2); Bilirubin,Direct 0.3 mg/dL (0.0-0.2); Bilirubin,Indirect 0.6 mg/dL (0.0-1.0); Bilirubin,Total 0.9 mg/dL (0.3-1.0); Calcium 9.9 mg/dL (8.6-10.3); Potassium 4.3 mEq/L (3.5-5.1); Total Protein 7.1 g/dL (6.4-8.9)
[2020-03-27 05:57] LABS: Adenovirus Not Detected (Not Detect); Coronavirus 229E Not Detected (Not Detect); Coronavirus HKU1 Not Detected (Not Detect); Coronavirus NL63 Not Detected (Not Detect); Coronavirus OC43 Not Detected (Not Detect)
[2020-03-27 05:59] LABS: Bordetella Pertussis Not Detected (Not Detect); Chlamydophila pneumoniae Not Detected (Not Detect); Human Metapneumovirus Not Detected (Not Detect); Human Rhinovirus/Enterovirus Not Detected (Not Detect); Influenza A Subtype 2009 H1 Not Detected (Not Detect); Influenza B Not Detected (Not Detect); Mycoplasma pneumoniae Not Detected (Not Detect); Parainfluenza Virus 1 Not Detected (Not Detect); Parainfluenza Virus 2 Not Detected (Not Detect); Parainfluenza Virus 3 Not Detected (Not Detect); Parainfluenza Virus 4 Not Detected (Not Detect); Respiratory Syncytial Virus Not Detected (Not Detect)
[2020-03-27] MEDS ORDERED: Naloxone 0.4 MG/ML INJ IVP PRN (08:05)
[2020-03-27] MEDS ORDERED: *HR* Promethazine 25 MG/ML VIAL IVP PRN (08:05)
[2020-03-27] MEDS ORDERED: 0.9 % Sodium Chloride 1,000 ML IVC SCH (08:15)
[2020-03-27] MEDS ORDERED: D5% in Water 1,000 ML IVC PRN (09:34)
[2020-03-27] MEDS ORDERED: Dextrose Gel 15 GM/37.5 ML TUBE PO PRN ×2 (09:34)
[2020-03-27] MEDS ORDERED: *HR* Dextrose 50 % in Water (Vial) 50 ML VIAL IVP PRN (09:34)
[2020-03-27] MEDS: MetroNIDAZOLE 500 MG/100 ML 500 MG/100 ML BAG IVPB SCH ×2 (10:19→16:36)
[2020-03-27] MEDS: 0.9 % Sodium Chloride 1,000 ML IVC SCH (10:19)
[2020-03-27] MEDS: *HR* OxyCODONE Immed Rel 5 MG TABLET PO PRN ×2 (11:52→19:53)
[2020-03-27] MEDS: Insulin LISPRO 300 UNITS/3 ML VIAL SQ SCH ×2 (14:21→16:50)
[2020-03-27] MEDS: Furosemide 20 MG TABLET PO SCH (16:36)
[2020-03-27] MEDS: *HR* Rivaroxaban 15 MG TABLET PO SCH (17:32)
[2020-03-27] MEDS: Ondansetron 4 MG/2 ML VIAL IVP PRN (17:35)
[2020-03-28] MEDS: Insulin LISPRO 300 UNITS/3 ML VIAL SQ SCH ×4 (00:12→18:24)
[2020-03-28] MEDS: MetroNIDAZOLE 500 MG/100 ML 500 MG/100 ML BAG IVPB SCH ×3 (00:14→16:08)
[2020-03-28] MEDS: Ondansetron 4 MG/2 ML VIAL IVP PRN ×2 (01:28→20:36)
[2020-03-28] MEDS: *HR* OxyCODONE Immed Rel 5 MG TABLET PO PRN (04:28)
[2020-03-28] MEDS: 0.9 % Sodium Chloride 1,000 ML IVC SCH (04:29)
[2020-03-28] MEDS: Isosorbide MONOnitrate (24 HR) 30 MG TAB.ER.24H PO SCH (08:45)
[2020-03-28] MEDS: Furosemide 20 MG TABLET PO SCH ×2 (08:45→16:13)
[2020-03-28 09:37] LABS: Basophils # 0.1 K/mcL (0.0-0.2); Basophils % 0.7 %; Eosinophils # 0.4 K/mcL (0.0-0.6); Eosinophils % 4.9 %; Hematocrit 42.1 % (35.3-44.9); Hemoglobin 13.9 g/dL (11.5-15.4); Immature Granulocytes % 0.3 % (0-4); Lymphocytes # 0.9 K/mcL (0.6-4.6); Lymphocytes % 11.5 %; Mean Corpuscular Hemoglobin 33.7 pg (28.0-33.3); Mean Corpuscular Volume 102.2 fL (83.0-100.0); Mean Platelet Volume 9.8 fL (9.4-12.4); Monocytes # 0.6 K/mcL (0.0-1.3); Neutrophils # 5.5 K/mcL (1.6-8.9); Platelet Count 156 K/mcL (140-400); Red Blood Count 4.12 M/mcL (3.82-4.97); Red Cell Distribution Width 13.1 % (11.5-14.5); Segmented Neutrophils % 74.6 %; White Blood Count 7.4 K/mcL (4.3-11.1)
[2020-03-28 09:59] LABS: BUN/Creatinine Ratio 19 (6-26); Blood Urea Nitrogen 18 mg/dL (8-23); Calcium 8.9 mg/dL (8.6-10.3); Carbon Dioxide 29 mEq/L (23-29); Chloride 100 mEq/L (98-107); Glucose 92 mg/dL (70-105); Osmolality,Calculated 282 (280-300); Potassium 4.4 mEq/L (3.5-5.1); Sodium 135 mEq/L (136-145); eGFR For African Americans > 60 (> 60); eGFR For Non-African Americans 56 (> 60)
[2020-03-28] MEDS ORDERED: Ringers Solution, Lactated 1,000 ML IVC SCH (10:45)
[2020-03-28] MEDS ORDERED: Acetaminophen 650 MG RECTAL SUPP RC PRN (16:04)
[2020-03-28] MEDS ORDERED: Acetaminophen 325 MG TABLET PO PRN (17:33)
[2020-03-28] MEDS: *HR* Rivaroxaban 15 MG TABLET PO SCH (17:36)
[2020-03-28] MEDS: Acetaminophen 325 MG TABLET PO PRN (20:35)
[2020-03-29] MEDS: MetroNIDAZOLE 500 MG/100 ML 500 MG/100 ML BAG IVPB SCH ×4 (01:45→23:41)
[2020-03-29] MEDS: Insulin LISPRO 300 UNITS/3 ML VIAL SQ SCH ×4 (01:52→17:24)
[2020-03-29] MEDS: *HR* OxyCODONE Immed Rel 5 MG TABLET PO PRN ×2 (01:56→23:41)
[2020-03-29 05:11] LABS: Basophils % 0.5 %; Eosinophils # 0.4 K/mcL (0.0-0.6); Eosinophils % 4.7 %; Hematocrit 38.1 % (35.3-44.9); Hemoglobin 12.9 g/dL (11.5-15.4); Immature Granulocytes % 0.3 % (0-4); Lymphocytes # 1.1 K/mcL (0.6-4.6); Mean Corpuscular HGB Conc 33.9 g/dL (31.6-35.5); Mean Corpuscular Hemoglobin 33.9 pg (28.0-33.3); Mean Platelet Volume 9.8 fL (9.4-12.4); Monocytes # 0.9 K/mcL (0.0-1.3); Monocytes % 11.7 %; Neutrophils # 5.2 K/mcL (1.6-8.9); Platelet Count 149 K/mcL (140-400); Red Blood Count 3.81 M/mcL (3.82-4.97); Red Cell Distribution Width 13.1 % (11.5-14.5); Segmented Neutrophils % 68.8 %; White Blood Count 7.6 K/mcL (4.3-11.1)
[2020-03-29 05:29] LABS: BUN/Creatinine Ratio 19 (6-26); Blood Urea Nitrogen 18 mg/dL (8-23); Calcium 8.2 mg/dL (8.6-10.3); Carbon Dioxide 28 mEq/L (23-29); Chloride 97 mEq/L (98-107); Glucose 101 mg/dL (70-105); Osmolality,Calculated 276 (280-300); Potassium 3.9 mEq/L (3.5-5.1); Sodium 132 mEq/L (136-145); eGFR For African Americans > 60 (> 60); eGFR For Non-African Americans 58 (> 60)
[2020-03-29] MEDS: Furosemide 20 MG TABLET PO SCH ×2 (07:50→17:22)
[2020-03-29] MEDS: Isosorbide MONOnitrate (24 HR) 30 MG TAB.ER.24H PO SCH (07:52)
[2020-03-29] MEDS: Ondansetron 4 MG/2 ML VIAL IVP PRN (07:52)
[2020-03-29] MEDS: Sennosides/Docusate Sodium TABLET PO SCH ×2 (10:57→19:51)
[2020-03-29] MEDS: polyethylene glycoL 3350 17 GM POWD.PACK PO SCH (10:57)
[2020-03-29] MEDS: *HR* Rivaroxaban 15 MG TABLET PO SCH (17:23)
[2020-03-29] MEDS ORDERED: D5% in Water 1,000 ML IVC PRN (19:46)
[2020-03-29] MEDS ORDERED: Dextrose Gel 15 GM/37.5 ML TUBE PO PRN ×2 (19:46)
[2020-03-29] MEDS ORDERED: *HR* Dextrose 50 % in Water (Vial) 50 ML VIAL IVP PRN (19:46)
[2020-03-30] MEDS: Acetaminophen 325 MG TABLET PO PRN (05:26)
[2020-03-30 06:14] LABS: BUN/Creatinine Ratio 19 (6-26); Blood Urea Nitrogen 20 mg/dL (8-23); Calcium 8.7 mg/dL (8.6-10.3); Carbon Dioxide 30 mEq/L (23-29); Chloride 91 mEq/L (98-107); Glucose 115 mg/dL (70-105); Osmolality,Calculated 276 (280-300); Potassium 3.5 mEq/L (3.5-5.1); Sodium 131 mEq/L (136-145); eGFR For African Americans > 60 (> 60); eGFR For Non-African Americans 50 (> 60)
[2020-03-30] MEDS: Insulin LISPRO 300 UNITS/3 ML VIAL SQ SCH ×2 (07:50→11:33)
[2020-03-30] MEDS: Sennosides/Docusate Sodium TABLET PO SCH (07:55)
[2020-03-30] MEDS: Isosorbide MONOnitrate (24 HR) 30 MG TAB.ER.24H PO SCH (07:55)
[2020-03-30] MEDS: MetroNIDAZOLE 500 MG/100 ML 500 MG/100 ML BAG IVPB SCH (07:55)
[2020-03-30] MEDS: Furosemide 20 MG TABLET PO SCH (07:55)
[2020-03-30] MEDS: polyethylene glycoL 3350 17 GM POWD.PACK PO SCH (07:55)
[2020-03-30 10:57] VITALS: BP 111/72
[2020-03-30] MEDS ORDERED: Insulin LISPRO 300 UNITS/3 ML VIAL SQ SCH (21:00)
== END 2020-03-30 14:49 | disposition home or self-care (01) | DRG 389 ==
LOC: 3ANU 03:54 → EMEROOARM 03:54 → SUATTDRO 08:30 → 3ANU 09:04
PROVIDERS: ADMIT Family Medicine; ATTEND Internal Medicine